=== PATIENT | female | born 1955 | race Caucasian/White ===

== ENCOUNTER 2019-05-16 09:34 | Outpatient (RCR) | payer MEDICARE, BC, SELFPAY ==
[2019-05-16] VITALS (11 sets, daily range): BP systolic 122–137; BP diastolic 71–83; PULSE 66–79; RESP 16–18; TEMP 36.6–37; O2SAT 97–99
[2019-05-16 10:41] LABS: Basophils % 0.6 %; Eosinophils # 0.2 10^3/uL (0.0-0.8); Eosinophils % 4.5 %; Hemoglobin 8.1 g/dL (11.5-15.3); Lymphocytes # 0.9 10^3/uL (0.8-4.8); Lymphocytes % 17.6 %; Mean Corpuscular Hemoglobin 22.7 pg (28.0-34.0); Mean Platelet Volume 11.5 fL (7.4-10.4); Monocytes # 0.5 10^3/uL (0.2-0.9); Monocytes % 9.7 %; Neutrophils # 3.6 10^3/uL (1.8-7.7); Neutrophils % 67.4 %; Nucleated Red Blood Cells % 0 %; Platelet Count 219 10^3/cmm (130-400); Red Blood Count 3.57 10^6/uL (4.1-5.3); Red Cell Distribution Width 14.8 % (12.1-15.1); White Blood Count 5.4 10^3/uL (4.0-10.0)
[2019-05-16 11:04] LABS: Iron 17 ug/dL (37-145); Percent Saturation 4.3 % (20-50); Total Iron Binding Capacity 394 mg/dL; Unsaturated Iron Binding 377 ug/dL (112-347)
--- NOTE | 2019-05-16 13:00 | ONC FU_ITS ---
[facility] Patient Note Patient: Cesia Ireland Unit #: [id number]: 1955 Dictated By: Adele DuenasDate of Visit: May 16, 2019 Onc MED Follow-Up/Prog Note Chief Complaint: Anemia. History of Present Illness: Ms Ireland is a 64 year-old woman with iron deficiency anemia. She has known AVMs with associated GI bleeding for which she has undergone EGD/bipolar diathermy on 3 occasions, in February 2014, in June 2015, and in March 2017. She also has had associated anemia. She was given parenteral iron replacement with 5 infusions of Venofer in 2015, and she also received infusions of Injectafer on 02/03/2017 and on 02/10/2017. On her follow-up visit with Dr. Cagle on 08/14/2017 she was again moderately anemic with hemoglobin 9.7 g and hematocrit 30.9%. The red cell indices were normal. The white blood cell count was normal at 6200 and the lately count was normal at 189,000. Comprehensive metabolic profile at that time was unremarkable. The serum iron was elevated at 209 mcg/dL with transferrin saturation 59%. The ferritin, though, was low at 15 ng/mL. Her repeat CBC on 08/21/2017 showed further decline in the hemoglobin to 9.1 g with white blood cell count 5100 and platelet count 170,000. Her other medical illnesses include irritable bowel syndrome, GERD, chronic venous stasis, and degenerative arthritis/degenerative disease of the spine. She is a nonsmoker. INTERIM HISTORY: She was seen here for a follow-up visit on 09/13/2017. Her CBC showed hemoglobin down to 8.4 g with white blood cell count 6600 and platelet count 196,000. The transferrin saturation was low at 4.2% and the ferritin was low at 4.2 ng/mL, consistent with iron deficiency. She was then given parenteral iron replacement with infusions of Injectafer on 09/15/2017 and 09/22/2017. She tolerated it well. On her follow-up visit on 10/23/2017 her hemoglobin had increased to 10.9 g and her transferrin saturation had increased from 4.2 to 8.6%. As she was still anemic and iron deficient, she was given 2 additional infusions of Injectafer. She has a good response with her hemoglobin increasing to 11.7 g. She was seen again on 02/16/2018. Her hemoglobin had dropped back to 8.3 g with transferrin saturation 6% and ferritin level 7.0 ng/mL, consistent with iron deficiency. She was given additional infusions of Injectafer on 02/16/2018 and on 02/23/2018. She had a good clinical response. Her CBC on 04/02/2018 showed hemoglobin increased to 13.8 g. Her transferrin saturation at increased to 23% and her ferritin was up to 95 ng/mL. By August 2018 she was moderately anemic again with hemoglobin decreased to 9.5 g. The transferrin saturation was back down to 6%, consistent with iron deficiency. She was given further parenteral iron replacement with infusions of Injectafer on 08/24/2018 and 08/31/2018. She was seen for a follow-up visit in November 2018. She was feeling good. She says her energy has been better following the Injectafer infusions in August. She has since then had GI evaluation with EGD and colonoscopy. The colonoscopy showed 3 benign polyps. Her EGD apparently did show some lesions that required treatment, but there was no evidence of any malignancy. Her acid reflux symptoms have been adequately managed with omeprazole. Her hemoglobin at that time was 13.2. Mrs. Ireland is here today for follow-up as she had a hemoglobin in April of 8.5. Repeat hemoglobin today is 8.1 and iron study reveals iron saturation of 4.5%. She is set up for her first of 2 doses of Injectafer for today. She states she is very short of breath. She is having significant fatigue and weakness. She states she is having palpitations and some intermittent chest pain as well. We will set her up for 2 units of blood today as well. She denies any fever or chills. She is had no nausea or vomiting. She denies any diarrhea or constipation. Her urinary patterns are normal. She denies any knee pain. She states she can feel her blood getting low because she was started having palpitations more frequently than her normal. She also has increasing fatigue. She states she is had Injectafer at least twice in the past and tolerates it well. She has no questions regarding the Injectafer. She states she is also had blood in the past and tolerated it well. Her ECOG is 1. Past Medical History: Colonic polyps Degenerative arthritis Degenerative disease of the spine Gastric AVM's Gastroesophageal reflux disease Iiritable bowel syndrome Iron deficiency anemia Venous insufficiency Past Surgical History: Cholecystectomy EDG/bipolar diathermy x 3 Carcioma removal in 2018 Colonoscopy in 2013 Allergies: No Known Allergies. Medications: Chlordiazepoxide-Clidinium 1 Tablet (of 5-2.5 mg) Capsule Oral four times a day PRN Citrucel Tablet Oral daily PRN Fluticasone Propionate 2 spray(s) (of 50 mcg/act) Suspension Nasal daily Hydrocodone-Acetaminophen 1 Tablet (of 5-325 mg) Oral daily PRN Omeprazole 1 Capsule (of 40 mg) Capsule Delayed Release Oral daily Family History: Ms. Ireland's mother is : cerebral vascular accident. Ms. Ireland's father is : hypertension, and myocardial infarction. Ms. Ireland has 1 sister who is : spinal cord tumor. Father of heart attack at age 73. Mother at age 76, records indicate from stroke, though the patient says it was heart attack. A sister of spinal cord tumor at age 57. Social History: Ms. Ireland is and she is retired. Ms. Ireland has never smoked. She has no history of drinking. She is retired. She is a nonsmoker. She does not drink alcohol. Review Of Symptoms: Constitutional Denies fevers, chills, night sweats, but has had excessive fatigue. Allergic/Immunologic No reactions. Eyes Denies significant visual changes. No diplopia. No amaurosis. ENMT Denies changes in hearing, sore throat, mouth sores, difficulty or changes in swallowing ability, and/or sinus drainage. Hematologic/Lymphatic Denies easy bruising or bleeding. The patient denies any tender or palpable lymph nodes. Respiratory She states she is having significant dyspnea on exertion and is having intermittent palpitations and some chest pain. She denies cough or hemoptysis. Denies orthopnea. Cardiovascular She states she is having some tightness at times but is having palpitations frequently like I do when I get low on blood . Gastrointestinal Denies nausea, vomiting, diarrhea, GI bleeding, or constipation. Denies change in bowel habits and/or stool color, no heartburn or early satiety. Denies any stool color changes. Denies blood in stool. Genitourinary (F) No hematuria, hesitancy, incontinence, vaginal bleeding, discharge or other problems with urination. Musculoskeletal Denies joint pain, swelling or redness. No decreased range of motion. Integumentary Denies chronic rashes, inflammation, ulcerations or skin changes. Neurologic Denies headache, blurred vision, and no areas of focal weakness or numbness. Normal gait. No sensory problems. Psychiatric Denies insomnia, depression, shani or mood swings. Vital Signs: Performed on May 16, 2019 11:13 Height - 67.00 in Weight - 255.6 lbs (LOW) BSA - 2.24 sq.m BMI - 40.03 (HIGH) Temperature - 98.0 F (LOW) Pulse - 75 /min Respiration - 24 /min BP - 144/71 mm(hg) (HIGH) O2 Sat - 100 % Pain - 0,1 - No physically strenuous activity, but ambulatory and able to carry out light or sedentary work (e.g. office work, light house work). (ECOG) Physical Examination: Constitutional Alert, oriented, no acute distress. Skin pale/pink, warm and dry. Head Normocephalic; atraumatic. Eyes Conjunctivae and sclerae are clear and without icterus. Pupils are reactive and equal. ENMT No oral exudates, ulcers, masses, thrush or mucositis. Oropharynx clear. Tongue normal. Neck Supple without masses or thyromegaly. No jugular venous distension. Hematologic/Lymphatic No petechiae or purpura. No tender or palpable lymph nodes in the cervical or supraclavicular areas. Respiratory Lungs are clear to auscultation without rhonchi or wheezing. Cardiovascular Regular rate and rhythm of heart without murmurs,clicks, gallops or rubs. Abdomen Non-tender, non-distended, no masses or ascites. Good bowel sounds noted in all quads. No guarding or rebound tenderness. No pulsatile masses. Back/Spine Non-tender to palpation. Extremities No visible deformities, no cyanosis, clubbing or edema. Musculoskeletal No tenderness or swelling, normal range of motion without obvious weakness. Integumentary No rashes or lesions. Neurologic No sensory or motor deficits, normal cerebellar function, normal gait. Psychiatric Alert and oriented times three. Coherent speech. Verbalizes understanding of our discussions today. Laboratory:Test performed on May 16, 2019 10:05 % Iron Saturation 4.3 % Iron, Total 17 mcg/dL TIBC 394 mcg/dL WBC 5.4 10^9/L RBC 3.57 10^12/L HGB 8.1 g/dL HCT 30.0 % MCV 84.0 fl MCH 22.7 pg MCHC 27.0 g/dL RDW 14.8 % Platelet Count 219 10^9/L MPV 11.5 fL Neutrophils (Gran) 3.6 10^9/L Lymphocytes 0.9 10^9/L Monocytes 0.5 10^9/L Eosinophils 0.2 10^9/L Basophils 0.0 10^9/L Manual Lymphocytes 17.6 % Manual Monocytes 9.7 % Manual Eosinophils 4.5 % Manual Basophils 0.6 % NRBCs 0.0 /100 WBC Test performed on Dec 05, 2018 12:16 Ferritin 69.0 ng/ml Sodium 137 mmol/L Potassium 4.1 mmol/L Chloride 101 mmol/L CO2 27 mmol/L Anion Gap 13.1 BUN 14 mg/dL Creatinine 0.7 mg/dL Cr Clearance (Est) 149.4200 mL/min eGFR 84.2 mL/min Glucose 103 mg/dl Calcium 8.9 mg/dL Protein, Total 7.3 g/dL Albumin 3.9 g/dL Globulin 3.4 gm/dL Bilirubin, Total 0.5 mg/dL ALT (SGPT) 29 U/L AST (SGOT) 24 U/L Alkaline Phosphatase 70 IU/L Neutrophil % 66.2 % Lymphocyte % 20.1 % Monocyte % 9.7 % Eosinophil % 3.5 % Basophils % 0.5 % Impression: 1. Patient with recurrent iron deficiency anemia. This is most likely due to GI blood loss. It is uncertain to what extent she may also have inadequate oral iron absorption. 2. She has had treatment for gastrointestinal AVMs on 3 occasions. She also has a history of gastritis/GERD. Her other medical illnesses include: 3. Irritable bowel syndrome. 4. Degenerative arthritis/degenerative disease of the spine. 5. She had a colonic polyp removed endoscopically in 2013. As of February 2018 she had become significantly anemic again, hemoglobin declining to 8.3 g. The transferrin saturation and ferritin were again consistent with iron deficiency. She was given additional infusions of Injectafer on 02/16/2018 and on 02/23/2018. She has had a very good clinical response. However, by August 2018 she was moderately anemic again with hemoglobin back down to 9.5 g. The transferrin saturation was 6%, consistent with iron deficiency. She was given further parenteral iron replacement with 2 more infusions of Injectafer. She again has had a very good clinical response. In the meantime, she underwent GI evaluation with EGD and colonoscopy. There was no evidence of any underlying malignancy. Mrs. Ireland returns today for Injectafer as she is noted to have iron deficiency anemia once again. Her hemoglobin on 05/07/2019 was 8.5. Repeat hemoglobin today is 8.1 iron saturation is 4.5%. Plan: 1. Procced with week1/2 of Injectafer. 2. 2 units of PRBCs today or LOUIE for symptomatic anemia with HGB of 8.1-extremely SOB, fatigue, CP and palpitations. 3. Labs from today were reviewed in detail and discussed with Ms. Ireland. White count is 5.4 hemoglobin 8.1 hematocrit is 30. Platelets are 219,000 ANC is 3600. Iron saturation is 4.3% iron level is 17. 4. We will plan to see her back for just Injectafer in 1 week. She will return for follow-up with repeat CBC CMP and iron studies and 5 to 6 weeks. I have asked her to have weekly CBC as well to follow as she is so anemic and symptomatic. If she feels good her hemoglobin has corrected she does not have to have them weekly. 5. Mrs. Ireland was instructed to contact us in the interim should questions or problems arise. 6. We reviewed Injectafer specific teaching including but not limited to hypersensitivity reactions, including anaphylactic-type reactions, including life threatening and fatal reactions have been reported in patients receiving Injectafer. Rash, urticaria, wheezing, pruritus, hypotension amongst others have been reported. Nausea, hypertension, hot flushes, dizziness and decreased blood phosphorus levels have been reported. Most common adverse reactions reported include urticaria, dyspnea, pruritus, tachycardia, erythema, pyrexia, chest discomfort, chills, angioedema, back pain, arthralgia, and syncope. They have also been informed how to contact the clinic with side effects or symptoms, including but not limited to those discussed above, as well as any other concern or question they may have. Our hours are 8:00 a.m. to 4:30 p.m. on Monday through and 8-12:00 on Monday. However, someone is demolition engineer 24 hours per day and they have been advised to contact the [facility] at if it is after hours. Signed By: Adele Duenas-, AOCNP Ricky Martinez MD <<Signature on File>>
[2019-05-16] MEDS: diphenhydrAMINE 25 mg Capsule PO (13:30)
[2019-05-16] MEDS: acetaminophen 325 mg Tablet 650 MG PO (13:30)
[2019-05-16] MEDS: sodium chloride 0.9% 250 ML 75 ML IV (14:11)
[2019-05-16] MEDS: FUROsemide 10 mg/mL SDV 2mL 20 MG IV (15:17)
[2019-05-16 22:33] LABS: Alanine Aminotransferase 20 U/L (0-33); Albumin Level 4.2 g/dL (3.5-5.2); Alkaline Phosphatase 82 IU/L (35-105); Aspartate Amino Transferase 22 U/L (0-32); Blood Urea Nitrogen 15 mg/dL (8-23); Calcium 9.6 mg/Dl (8.8-10.2); Carbon Dioxide 21 mmol/L (22-29); Chloride 102 mmol/L (98-107); Globulin 3.5 g/dL (1.3-4.6); Glucose 87 mg/dL (74-106); Sodium 139 mmol/L (136-145); Total Bilirubin 0.3 mg/dL (0.15-1.2); Total Protein 7.7 g/dL (6.6-8.7)
== END 2019-05-16 23:59 | disposition home or self-care (01) ==
LOC: ONCMED 09:34
PROVIDERS: Family Provider Internal Medicine; Visit Provider Nurse Practitioner
DX: D50.9 Iron deficiency anemia, unspecified (principal); K58.9 Irritable bowel syndrome, unspecified; K21.9 Gastro-esophageal reflux disease without esophagitis; I87.8 Other specified disorders of veins; M19.90 Unspecified osteoarthritis, unspecified site; Z79.891 Long term (current) use of opiate analgesic
CPT/HCPCS: 36430; 80053; 83540; 83550; 85025; 86850; 86900; 96365; 99214; J1439; J1940; J7050; P9016

== ENCOUNTER 2019-06-06 05:37 | Outpatient (RCR) | payer MEDICARE, BC, SELFPAY ==
[2019-05-23 10:07] LABS: Basophils % 0.3 %; Eosinophils # 0.3 10^3/uL (0.0-0.8); Eosinophils % 4.3 %; Hematocrit 33.9 % (37.0-47.0); Hemoglobin 9.6 g/dL (11.5-15.3); Lymphocytes % 15.2 %; Mean Corpuscular HGB Conc 28.3 g/dL (30.0-36.0); Mean Corpuscular Hemoglobin 23.9 pg (28.0-34.0); Mean Corpuscular Volume 84.3 fL (81-99); Mean Platelet Volume 11.6 fL (7.4-10.4); Monocytes # 0.6 10^3/uL (0.2-0.9); Neutrophils # 4.4 10^3/uL (1.8-7.7); Neutrophils % 70.7 %; Nucleated Red Blood Cells % 0 %; Platelet Count 177 10^3/cmm (130-400); Red Blood Count 4.02 10^6/uL (4.1-5.3); Red Cell Distribution Width 19.4 % (12.1-15.1); White Blood Count 6.2 10^3/uL (4.0-10.0)
[2019-05-30 09:24] LABS: Basophils % 0.7 %; Eosinophils # 0.3 10^3/uL (0.0-0.8); Eosinophils % 4.4 %; Hematocrit 36.1 % (37.0-47.0); Hemoglobin 10.4 g/dL (11.5-15.3); Lymphocytes % 17.9 %; Mean Corpuscular HGB Conc 28.8 g/dL (30.0-36.0); Mean Corpuscular Hemoglobin 26.5 pg (28.0-34.0); Mean Corpuscular Volume 92.1 fL (81-99); Mean Platelet Volume 12.2 fL (7.4-10.4); Monocytes # 0.5 10^3/uL (0.2-0.9); Neutrophils # 3.8 10^3/uL (1.8-7.7); Neutrophils % 67.5 %; Nucleated Red Blood Cells % 0 %; Platelet Count 167 10^3/cmm (130-400); Red Blood Count 3.92 10^6/uL (4.1-5.3); Red Cell Distribution Width 23.3 % (12.1-15.1); White Blood Count 5.7 10^3/uL (4.0-10.0)
[2019-06-06 09:15] LABS: Basophils % 0.5 %; Eosinophils # 0.3 10^3/uL (0.0-0.8); Eosinophils % 4.7 %; Hematocrit 36.4 % (37.0-47.0); Hemoglobin 10.8 g/dL (11.5-15.3); Lymphocytes # 1.1 10^3/uL (0.8-4.8); Lymphocytes % 17.5 %; Mean Corpuscular HGB Conc 29.7 g/dL (30.0-36.0); Mean Corpuscular Hemoglobin 27.9 pg (28.0-34.0); Mean Corpuscular Volume 94.1 fL (81-99); Mean Platelet Volume 11.5 fL (7.4-10.4); Monocytes # 0.5 10^3/uL (0.2-0.9); Monocytes % 8.6 %; Neutrophils # 4.2 10^3/uL (1.8-7.7); Neutrophils % 68.4 %; Nucleated Red Blood Cells % 0 %; Platelet Count 153 10^3/cmm (130-400); Red Blood Count 3.87 10^6/uL (4.1-5.3); Red Cell Distribution Width 23.9 % (12.1-15.1); White Blood Count 6.2 10^3/uL (4.0-10.0)
== END 2019-06-07 23:59 | disposition home or self-care (01) ==
LOC: ONCMED 05:37
PROVIDERS: Nurse Practitioner; Family Provider Internal Medicine; PCP Family Medicine; Visit Provider Internal Medicine Medical Oncology
DX: D50.9 Iron deficiency anemia, unspecified (principal)
CPT/HCPCS: 36415; 85025; 96365; J1439

== ENCOUNTER 2019-07-05 05:41 | Outpatient (RCR) | payer MEDICARE, BC, SELFPAY ==
[2019-06-13 09:24] LABS: Basophils % 0.7 %; Eosinophils # 0.3 10^3/uL (0.0-0.8); Eosinophils % 4.6 %; Hematocrit 36.5 % (37.0-47.0); Hemoglobin 10.8 g/dL (11.5-15.3); Lymphocytes # 1.2 10^3/uL (0.8-4.8); Lymphocytes % 20.8 %; Mean Corpuscular HGB Conc 29.6 g/dL (30.0-36.0); Mean Corpuscular Hemoglobin 28.1 pg (28.0-34.0); Mean Corpuscular Volume 95.1 fL (81-99); Mean Platelet Volume 11.5 fL (7.4-10.4); Monocytes # 0.5 10^3/uL (0.2-0.9); Monocytes % 9.1 %; Neutrophils # 3.8 10^3/uL (1.8-7.7); Neutrophils % 64.3 %; Nucleated Red Blood Cells % 0 %; Platelet Count 154 10^3/cmm (130-400); Red Blood Count 3.84 10^6/uL (4.1-5.3); Red Cell Distribution Width 23.4 % (12.1-15.1); White Blood Count 5.8 10^3/uL (4.0-10.0)
[2019-06-20 09:23] LABS: Basophils % 0.4 %; Eosinophils # 0.3 10^3/uL (0.0-0.8); Hematocrit 35.9 % (37.0-47.0); Hemoglobin 10.9 g/dL (11.5-15.3); Lymphocytes # 1.2 10^3/uL (0.8-4.8); Lymphocytes % 17.2 %; Mean Corpuscular HGB Conc 30.4 g/dL (30.0-36.0); Mean Corpuscular Hemoglobin 27.9 pg (28.0-34.0); Mean Corpuscular Volume 92.1 fL (81-99); Mean Platelet Volume 11.4 fL (7.4-10.4); Monocytes # 0.7 10^3/uL (0.2-0.9); Monocytes % 9.4 %; Neutrophils # 4.8 10^3/uL (1.8-7.7); Neutrophils % 68.7 %; Nucleated Red Blood Cells % 0 %; Platelet Count 183 10^3/cmm (130-400); Red Cell Distribution Width 21.9 % (12.1-15.1); White Blood Count 6.9 10^3/uL (4.0-10.0)
[2019-06-26 09:47] LABS: Basophils % 0.5 %; Eosinophils # 0.2 10^3/uL (0.0-0.8); Eosinophils % 3.4 %; Hematocrit 35.7 % (37.0-47.0); Hemoglobin 10.8 g/dL (11.5-15.3); Lymphocytes # 1.3 10^3/uL (0.8-4.8); Lymphocytes % 19.1 %; Mean Corpuscular HGB Conc 30.3 g/dL (30.0-36.0); Mean Corpuscular Hemoglobin 28.1 pg (28.0-34.0); Mean Platelet Volume 11.2 fL (7.4-10.4); Monocytes # 0.5 10^3/uL (0.2-0.9); Monocytes % 8.3 %; Neutrophils # 4.5 10^3/uL (1.8-7.7); Neutrophils % 68.5 %; Nucleated Red Blood Cells % 0 %; Platelet Count 187 10^3/cmm (130-400); Red Blood Count 3.84 10^6/uL (4.1-5.3); Red Cell Distribution Width 20.8 % (12.1-15.1); White Blood Count 6.5 10^3/uL (4.0-10.0)
[2019-06-26 10:06] LABS: Alanine Aminotransferase 27 U/L (0-33); Albumin Level 4.1 g/dL (3.5-5.2); Alkaline Phosphatase 83 IU/L (35-105); Anion Gap 11.8 (5-19); Aspartate Amino Transferase 21 U/L (0-32); Blood Urea Nitrogen 20 mg/dL (8-23); Calcium 9.3 mg/dL (8.5-10.5); Carbon Dioxide 30 mmol/L (22-29); Chloride 100 mmol/L (98-107); Globulin 3.5 g/dL (1.3-4.6); Glucose 112 mg/dL (65-115); Potassium 3.8 mmol/L (3.5-5.1); Sodium 138 mmol/L (136-145); Total Bilirubin 0.2 mg/dL (0.15-1.2); Total Protein 7.6 g/dL (6.6-8.7)
[2019-06-27 10:47] LABS: Ferritin 35 ng/mL (15-150); Iron 44 ug/dL (37-145); Percent Saturation 13.4 % (20-50); Total Iron Binding Capacity 326 mcg/dl; Unsaturated Iron Binding 282 ug/dL (112-347)
[2019-06-27 11:04] LABS: Vitamin B12 366 pg/mL (232-1245)
--- NOTE | 2019-06-27 17:23 | ONC FU_ITS ---
Dr. Martinez Patient Follow-Up Note Patient: Cesia Ireland Unit #: [id number]: [id number] Dicatated By: Ricky Martinez M.D.Date of Visit:Jun 27, 2019 Onc Med Follow-up/Prog Note Chief Complaint: Anemia. History of Present Illness: This is a 64 year-old woman with iron deficiency anemia. She has known AVMs with associated GI bleeding for which she has undergone EGD/bipolar diathermy on 3 occasions, in February 2014, in June 2015, and in March 2017. She also has had associated anemia. She was given parenteral iron replacement with 5 infusions of Venofer in 2015, and she also received infusions of Injectafer on 02/03/2017 and on 02/10/2017. On her follow-up visit with Dr. Cagle on 08/14/2017 she was again moderately anemic with hemoglobin 9.7 g and hematocrit 30.9%. The red cell indices were normal. The white blood cell count was normal at 6200 and the lately count was normal at 189,000. Comprehensive metabolic profile at that time was unremarkable. The serum iron was elevated at 209 mcg/dL with transferrin saturation 59%. The ferritin, though, was low at 15 ng/mL. Her repeat CBC on 08/21/2017 showed further decline in the hemoglobin to 9.1 g with white blood cell count 5100 and platelet count 170,000. She was seen here for a follow-up visit on 09/13/2017. Her CBC showed hemoglobin down to 8.4 g with white blood cell count 6600 and platelet count 196,000. The transferrin saturation was low at 4.2% and the ferritin was low at 4.2 ng/mL, consistent with iron deficiency. She was then given parenteral iron replacement with infusions of Injectafer on 09/15/2017 and 09/22/2017. She tolerated it well. On her follow-up visit on 10/23/2017 her hemoglobin had increased to 10.9 g and her transferrin saturation had increased from 4.2 to 8.6%. As she was still anemic and iron deficient, she was given 2 additional infusions of Injectafer. She has a good response with her hemoglobin increasing to 11.7 g. She was seen again on 02/16/2018. Her hemoglobin had dropped back to 8.3 g with transferrin saturation 6% and ferritin level 7.0 ng/mL, consistent with iron deficiency. She was given additional infusions of Injectafer on 02/16/2018 and on 02/23/2018. She had a good clinical response. Her CBC on 04/02/2018 showed hemoglobin increased to 13.8 g. Her transferrin saturation at increased to 23% and her ferritin was up to 95 ng/mL. Her other medical illnesses include irritable bowel syndrome, GERD, chronic venous stasis, and degenerative arthritis/degenerative disease of the spine. She is a nonsmoker. INTERIM HISTORY: By August 2018 she was moderately anemic again with hemoglobin decreased to 9.5 g. The transferrin saturation was back down to 6%, consistent with iron deficiency. She was given further parenteral iron replacement with infusions of Injectafer on 08/24/2018 and 08/31/2018. She had a good response with her hemoglobin increasing to 13 g. In May 2019 she received 2 more infusions of Injectafer with her hemoglobin decreased to 8.1 g and transferrin saturation low at 4.3%. Approximately 10 days ago she had presented to Dr. Fraga with left facial paralysis, consistent with Mendosa's palsy. At the time she was also having sinusitis symptoms. She was treated with Augmentin and valacyclovir. She also received a steroid injection. She is seen for a scheduled visit. She complains that she is still tired a lot despite the iron infusions last month. Her appetite is somewhat variable, but adequate. Her weight is stable. She has no fever or night sweats. She says her sinus symptoms are getting better. She was having shortness of breath when she was lying down, but that is better now. She has not been having cough, and she does not complain of chest pain. She has no GI or complaints. She has some stiffness in her hands. She has been having headache on the left side associated with the Mendosa's palsy. She sometimes has numbness/tingling in her hands. Medications: Amoxicillin-Pot Clavulanate 1 Tablet (of 875-125 mg) Oral b.i.d. for 10 days, Chlordiazepoxide-Clidinium 1 Tablet (of 5-2.5 mg) Capsule Oral four times a day PRN, Citrucel Tablet Oral daily PRN, Fluticasone Propionate 2 spray(s) (of 50 mcg/act) Suspension Nasal daily, Hydrocodone-Acetaminophen 1 Tablet (of 5-325 mg) Oral daily PRN, Omeprazole 1 Capsule (of 40 mg) Capsule Delayed Release Oral daily Allergies: No Known Allergies. Review of Systems: Constitutional - She complains that she is still tired a lot. Her appetite is somewhat variable, but adequate. Her weight is stable. She has no fever, night sweats, or hot flashes. ECOG score is 1, ENMT - Her sinusitis symptoms are getting better. No mouth sores. No sore throat or difficulty swallowing, Hematologic/Lymphatic - She has easy bruising, Respiratory - She was having shortness of breath when she was lying down, but that has gotten better. No cough. No pleuritic pain or hemoptysis, Cardiovascular - No angina pain. No palpitations, Gastrointestinal - No nausea or vomiting. No heartburn or acid reflux. No diarrhea or constipation. No blood in the stool or black stools, Genitourinary (F) - No dysuria or hematuria. No urinary frequency. No urgency or incontinence, Musculoskeletal - She has stiffness in her joints, Integumentary - No skin complications, Neurologic - She has Mendosa's palsy and she has headaches on the left side associated it. No dizziness. She occasionally has numbness and tingling in her hands, Psychiatric - No anxiety or depression. She sometimes has trouble sleeping at night. Vital Signs: Performed on Jun 27, 2019 10:04 Height - 67.00 in Weight - 257.0 lbs (HIGH) BSA - 2.25 sq.m BMI - 40.25 (HIGH) Temperature - 97.4 F (LOW) Pulse - 68 /min Respiration - 24 /min BP - 156/73 mm(hg) (HIGH) O2 Sat - 100 % Pain - 5 Physical Examination: Constitutional - She looks pretty good generally, Eyes - Sclerae nonicteric. Conjunctivae clear, ENMT - No lesions noted in the oral cavity, Hematologic/Lymphatic - No cervical, clavicular, or axillary adenopathy, Respiratory - Lungs are clear with good air movement bilaterally, Cardiovascular - Heart rhythm is regular. There is a I/ systolic murmur. There is no gallop or rub noted, Abdomen - Mildly distended but soft. Liver and spleen are not enlarged. There is no abdominal mass or ascites noted and there is no inguinal adenopathy, Extremities - Slight pedal edema, Integumentary - There is no skin eruption, Neurologic - She as a complete left facial paralysis. Lab/Imaging: Test performed on Jun 26, 2019 09:05 Sodium 138 mmol/L Potassium 3.8 mmol/L Chloride 100 mmol/L CO2 30 mmol/L Anion Gap 11.8 BUN 20 mg/dL Creatinine 0.8 mg/dL Cr Clearance (Est) 128.3200 mL/min eGFR 72.0 mL/min Glucose 112 mg/dL Calcium 9.3 mg/dL Protein, Total 7.6 g/dL Albumin 4.1 g/dL Globulin 3.5 g/dL Bilirubin, Total 0.2 mg/dL ALT (SGPT) 27 U/L AST (SGOT) 21 U/L Alkaline Phosphatase 83 IU/L WBC 6.5 10 3/uL RBC 3.84 10 6/uL HGB 10.8 g/dL HCT 35.7 % MCV 93.0 fL MCH 28.1 pg MCHC 30.3 g/dL RDW 20.8 % Platelet Count 187 10 3/cmm MPV 11.2 fL Neutrophils 4.5 10 3/uL Lymphocytes 1.3 10 3/uL Monocytes 0.5 10 3/uL Eosinophils 0.2 10 3/uL Basophils 0.0 10 3/uL Neutrophil % 68.5 % Lymphocyte % 19.1 % Monocyte % 8.3 % Eosinophil % 3.4 % Basophils % 0.5 % Impression: 1. Patient with recurrent iron deficiency anemia. This is most likely due to GI blood loss. It is uncertain to what extent she may also have inadequate oral iron absorption. 2. She has had treatment for gastrointestinal AVMs on 3 occasions. She also has a history of gastritis/GERD. Her other medical illnesses include: 3. Irritable bowel syndrome. 4. Degenerative arthritis/degenerative disease of the spine. 5. She had a colonic polyp removed endoscopically in 2013. As of February 2018 she had become significantly anemic again, hemoglobin declining to 8.3 g. The transferrin saturation and ferritin were again consistent with iron deficiency. She was given additional infusions of Injectafer on 02/16/2018 and on 02/23/2018. She has had a very good clinical response. However, by August 2018 she was moderately anemic again with hemoglobin back down to 9.5 g. The transferrin saturation was 6%, consistent with iron deficiency. She was given further parenteral iron replacement with 2 more infusions of Injectafer. She again has had a very good clinical response. In the meantime, she underwent GI evaluation with EGD and colonoscopy. There was no evidence of any underlying malignancy. In May 2019 she was given 2 more infusions of Injectafer with her hemoglobin decreased to 8.1 g and her transferrin saturation low at 4.3%. She has had some response, but she continues have significant fatigue, and she remains mildly anemic with transferrin saturation low at 13.4%. 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 Plan: She will be given 2 more infusions of Injectafer. She will be scheduled for a 1-month interval followup visit. Signed By: Ricky Martinez M.D. <<Signature on File>>
--- NOTE | 2019-07-01 10:48 | MM_ITS ---
WS: [id number] SCREENING DIGITAL MAMMOGRAM WITH CAD HISTORY: SCREENING COMPARISON: 06/05/2018 and 05/29/2017 Bilateral CC and MLO views submitted. Computer aided detection analyzed. Breast composition: There are scattered areas of fibroglandular density. No suspicious masses, microc alcifications or architectural distortion. MM/[id number] IMPRESSION: BI-RADS: 1-Negative FOLLOW UP: 1 Year Follow-up
== END 2019-07-06 23:59 | disposition home or self-care (01) ==
LOC: ONCMED 05:41
PROVIDERS: Nurse Practitioner; Absent Provider Internal Medicine Medical Oncology; Family Provider Internal Medicine; PCP Family Medicine; Visit Provider Internal Medicine Medical Oncology
DX: D50.9 Iron deficiency anemia, unspecified (principal); Z12.31 Encounter for screening mammogram for malignant neoplasm of breast; K58.9 Irritable bowel syndrome, unspecified; K21.9 Gastro-esophageal reflux disease without esophagitis; I87.8 Other specified disorders of veins; M19.90 Unspecified osteoarthritis, unspecified site; G51.0 Bell's palsy; Z79.899 Other long term (current) drug therapy
CPT/HCPCS: 36415; 77067; 80053; 82607; 82728; 83540; 83550; 85025; 96365; 99214; J1439

== ENCOUNTER 2019-08-05 06:50 | Outpatient (RCR) | payer MEDICARE, BC, SELFPAY ==
[2019-08-05 12:00] LABS: Basophils % 0.7 %; Eosinophils # 0.1 10^3/uL (0.0-0.8); Hematocrit 41.5 % (37.0-47.0); Hemoglobin 12.8 g/dL (11.5-15.3); Lymphocytes # 0.8 10^3/uL (0.8-4.8); Lymphocytes % 18.7 %; Mean Corpuscular HGB Conc 30.8 g/dL (30.0-36.0); Mean Corpuscular Hemoglobin 31.3 pg (28.0-34.0); Mean Corpuscular Volume 101.5 fL (81-99); Mean Platelet Volume 13.4 fL (7.4-10.4); Monocytes # 0.4 10^3/uL (0.2-0.9); Monocytes % 8.7 %; Neutrophils % 68.4 %; Nucleated Red Blood Cells % 0 %; Platelet Count 145 10^3/cmm (130-400); Red Blood Count 4.09 10^6/uL (4.1-5.3); Red Cell Distribution Width 15.9 % (12.1-15.1); White Blood Count 4.4 10^3/uL (4.0-10.0)
[2019-08-05 12:53] LABS: Slide Review Slide Review Perform
[2019-08-05 13:02] LABS: Ferritin 106 ng/mL (15-150); Iron 82 ug/dL (37-145); Percent Saturation 28.3 % (20-50); Total Iron Binding Capacity 289 mcg/dl; Unsaturated Iron Binding 207 ug/dL (112-347)
== END 2019-08-06 23:59 | disposition home or self-care (01) ==
LOC: ONCMED 06:50
PROVIDERS: Absent Provider Internal Medicine Medical Oncology; Family Provider Internal Medicine; PCP Family Medicine; Visit Provider Internal Medicine Medical Oncology
DX: D64.9 Anemia, unspecified (principal)
CPT/HCPCS: 82728; 83540; 83550; 85025

== ENCOUNTER 2019-11-20 09:39 | Outpatient (CLI) | payer MEDICARE, BC, SELFPAY ==
[2019-11-20 10:17] LABS: Basophils % 0.4 %; Eosinophils # 0.2 10^3/uL (0.0-0.8); Eosinophils % 3.8 %; Hematocrit 31.4 % (37.0-47.0); Mean Corpuscular HGB Conc 28.7 g/dL (30.0-36.0); Mean Corpuscular Hemoglobin 26.5 pg (28.0-34.0); Mean Corpuscular Volume 92.6 fL (81-99); Mean Platelet Volume 11.3 fL (7.4-10.4); Monocytes # 0.5 10^3/uL (0.2-0.9); Monocytes % 9.3 %; Neutrophils # 3.87 10^3/uL (1.8-7.7); Neutrophils % 69.1 %; Nucleated Red Blood Cells % 0 %; Platelet Count 193 10^3/cmm (130-400); Red Blood Count 3.39 10^6/uL (4.1-5.3); White Blood Count 5.6 10^3/uL (4.0-10.0)
[2019-11-20 10:30] LABS: Alanine Aminotransferase 23 U/L (0-33); Albumin Level 3.8 g/dL (3.5-5.2); Alkaline Phosphatase 67 IU/L (35-105); Aspartate Amino Transferase 18 U/L (0-32); Blood Urea Nitrogen 13 mg/dL (8-23); Calcium 8.5 mg/dL (8.5-10.5); Carbon Dioxide 27 mmol/L (22-29); Chloride 104 mmol/L (98-107); Ferritin 8 ng/mL (15-150); Globulin 3.1 g/dL (1.3-4.6); Glucose 113 mg/dL (65-115); Iron 17 ug/dL (37-145); Osmolality Calculated 285 mOsm/kg (285-295); Percent Saturation 5.3 % (20-50); Sodium 139 mmol/L (136-145); Total Bilirubin 0.3 mg/dL (0.15-1.2); Total Iron Binding Capacity 316 mcg/dl; Total Protein 6.9 g/dL (6.6-8.7); Unsaturated Iron Binding 299 ug/dL (112-347)
== END 2019-11-20 09:40 | disposition home or self-care (01) ==
LOC: ONCMED 09:47
PROVIDERS: PCP Family Medicine; Visit Provider Internal Medicine Medical Oncology
DX: D50.9 Iron deficiency anemia, unspecified (principal); G51.0 Bell's palsy; M47.9 Spondylosis, unspecified; Q27.33 Arteriovenous malformation of digestive system vessel; K21.9 Gastro-esophageal reflux disease without esophagitis; K58.9 Irritable bowel syndrome, unspecified; K63.5 Polyp of colon; I87.2 Venous insufficiency (chronic) (peripheral)
CPT/HCPCS: 36415; 80053; 82728; 83540; 83550; 85025

== ENCOUNTER 2019-11-25 08:56 | Outpatient (CLI) | payer MEDICARE, BC, SELFPAY ==
[2019-11-25] MEDS: ferric carboxy (IVPB) 750 MG in sodium chloride 0.9% (100 ml) 100 ML 460 MG IV (10:00)
--- NOTE | 2019-11-25 10:03 | ONC FU_ITS ---
[facility] Patient Note Patient: Cesia Ireland Unit #: [id number]: [id number] Dictated By: Adele DuenasDate of Visit: Nov 25, 2019 Onc MED Follow-Up/Prog Note Chief Complaint: Anemia. History of Present Illness: Mrs Ireland is a 64 year-old woman with iron deficiency anemia. She has known AVMs with associated GI bleeding for which she has undergone EGD/bipolar diathermy on 3 occasions, in February 2014, in June 2015, and in March 2017. She also has had associated anemia. She was given parenteral iron replacement with 5 infusions of Venofer in 2015, and she also received infusions of Injectafer on 02/03/2017 and on 02/10/2017. On her follow-up visit with Dr. Cagle on 08/14/2017 she was again moderately anemic with hemoglobin 9.7 g and hematocrit 30.9%. The red cell indices were normal. The white blood cell count was normal at 6200 and the lately count was normal at 189,000. Comprehensive metabolic profile at that time was unremarkable. The serum iron was elevated at 209 mcg/dL with transferrin saturation 59%. The ferritin, though, was low at 15 ng/mL. Her repeat CBC on 08/21/2017 showed further decline in the hemoglobin to 9.1 g with white blood cell count 5100 and platelet count 170,000. Her other medical illnesses include irritable bowel syndrome, GERD, chronic venous stasis, and degenerative arthritis/degenerative disease of the spine. She is a nonsmoker. INTERIM HISTORY: She was seen here for a follow-up visit on 09/13/2017. Her CBC showed hemoglobin down to 8.4 g with white blood cell count 6600 and platelet count 196,000. The transferrin saturation was low at 4.2% and the ferritin was low at 4.2 ng/mL, consistent with iron deficiency. She was then given parenteral iron replacement with infusions of Injectafer on 09/15/2017 and 09/22/2017. She tolerated it well. On her follow-up visit on 10/23/2017 her hemoglobin had increased to 10.9 g and her transferrin saturation had increased from 4.2 to 8.6%. As she was still anemic and iron deficient, she was given 2 additional infusions of Injectafer. She has a good response with her hemoglobin increasing to 11.7 g. She was seen again on 02/16/2018. Her hemoglobin had dropped back to 8.3 g with transferrin saturation 6% and ferritin level 7.0 ng/mL, consistent with iron deficiency. She was given additional infusions of Injectafer on 02/16/2018 and on 02/23/2018. She had a good clinical response. Her CBC on 04/02/2018 showed hemoglobin increased to 13.8 g. Her transferrin saturation at increased to 23% and her ferritin was up to 95 ng/mL. By August 2018 she was moderately anemic again with hemoglobin decreased to 9.5 g. The transferrin saturation was back down to 6%, consistent with iron deficiency. She was given further parenteral iron replacement with infusions of Injectafer on 08/24/2018 and 08/31/2018. She had a good response with her hemoglobin increasing to 13 g. In May 2019 she received 2 more infusions of Injectafer with her hemoglobin decreased to 8.1 g and transferrin saturation low at 4.3%. In May 2019, she had presented to Dr. Fraga with left facial paralysis, consistent with Mendosa's palsy. At the time she was also having sinusitis symptoms. She was treated with Augmentin and valacyclovir. She also received a steroid injection. June 2019 she was once again found to be iron deficient and her hemoglobin was 10.8. She received 2 doses of Injectafer 1 week apart with the last one being on July 05, 2019. Her labs from August 05, 2027 indicated that her hemoglobin had improved to 12.8 and her iron saturation had improved to 28.3% and iron level was 82. Mrs. Ireland called last week indicating that she is been more fatigued. She is having a little bit more shortness of breath than normal. She is unable to attend her large garden or walk up hills like she normally does. She was suspicious that she may once again be iron deficient. She did have labs to confirm this on November 20, 2019. Her hemoglobin was found to be 9 hematocrit was 31.4 her iron saturation was 5.3 total iron was 17 and ferritin was 8. She was advised to come in for follow-up and to initiate Injectafer treatment once again. She states overall she feels pretty good other than the fatigue. She states that she is seeing Dr. Red in [place] on Monday for possible EGD. She has not noticed any blood in the stools. She has had no clifford bleeding elsewhere. She denies fever or chills. She has had no orthopnea. She states she has shortness of breath with dyspnea but is breathing fine at rest or minimal activity. She denies any lower extremity edema. She denies diarrhea or constipation. She denies any urinary symptoms. She has had no neuropathy symptoms at present. Her ECOG currently is 1. Past Medical History: [place] palsy Colonic polyps Degenerative arthritis Degenerative disease of the spine Gastric AVM's Gastroesophageal reflux disease Iiritable bowel syndrome Iron deficiency anemia Venous insufficiency Past Surgical History: Cholecystectomy EDG/bipolar diathermy x 3 Colonoscopy in 2019 Carcioma removal in 2018 She had bilateral peripheral iridonmy 03-18-19 Allergies: No Known Allergies. Medications: Citrucel Tablet Oral daily PRN Dicyclomine HCl 1 Capsule (of 10 mg) Oral daily PRN Fluticasone Propionate 2 spray(s) (of 50 mcg/act) Suspension Nasal daily Hydrocodone-Acetaminophen 1 Tablet (of 5-325 mg) Oral daily PRN Omeprazole 1 Capsule (of 40 mg) Capsule Delayed Release Oral daily Family History: Ms. Ireland's mother is : cerebral vascular accident. Ms. Ireland's father is : hypertension, and myocardial infarction. Ms. Ireland has 1 sister who is : spinal cord tumor. Father of heart attack at age 73. Mother at age 76, records indicate from stroke, though the patient says it was heart attack. A sister of spinal cord tumor at age 57. Social History: Ms. Ireland is and she is retired. Ms. Ireland has never smoked. She has no history of drinking. She is retired. She is a nonsmoker. She does not drink alcohol. Review Of Symptoms: Constitutional Denies fevers, chills, night sweats, but has had excessive fatigue. Allergic/Immunologic No reactions. Eyes Denies significant visual changes. No diplopia. No amaurosis. ENMT Denies changes in hearing, sore throat, mouth sores, difficulty or changes in swallowing ability, and/or sinus drainage. Hematologic/Lymphatic Denies easy bruising or bleeding. The patient denies any tender or palpable lymph nodes. Respiratory She states she is having significant dyspnea on exertion. She denies cough or hemoptysis. Denies orthopnea. Cardiovascular Denies anginal chest pain, palpitations or orthopnea. Gastrointestinal Denies nausea, vomiting, diarrhea, GI bleeding, or constipation. Denies change in bowel habits and/or stool color, no heartburn or early satiety. Denies any stool color changes. Denies blood in stool. Genitourinary (F) No hematuria, hesitancy, incontinence, vaginal bleeding, discharge or other problems with urination. Musculoskeletal Denies joint pain, swelling or redness. No decreased range of motion. Integumentary Denies chronic rashes, inflammation, ulcerations or skin changes. Neurologic Denies headache, blurred vision, and no areas of focal weakness or numbness. Normal gait. No sensory problems. Psychiatric Denies insomnia, depression, shani or mood swings. Vital Signs: Performed on Nov 25, 2019 09:13 Height - 67.00 in Weight - 260.6 lbs (HIGH) BSA - 2.26 sq.m BMI - 40.82 (HIGH) Temperature - 98.0 F (LOW) Pulse - 76 /min Respiration - 19 /min BP - 177/75 mm(hg) (HIGH) O2 Sat - 99 % Pain - 0,1 - No physically strenuous activity, but ambulatory and able to carry out light or sedentary work (e.g. office work, light house work). (ECOG) Physical Examination: Constitutional Alert, oriented, no acute distress. Skin pale/pink, warm and dry. Head Normocephalic; atraumatic. Eyes Conjunctivae and sclerae are clear and without icterus. Pupils are reactive and equal. Neck Supple without masses or thyromegaly. No jugular venous distension. Hematologic/Lymphatic No petechiae or purpura. No tender or palpable lymph nodes in the cervical or supraclavicular areas. Respiratory Lungs are clear to auscultation without rhonchi or wheezing. Cardiovascular Regular rate and rhythm of heart without murmurs,clicks, gallops or rubs. Back/Spine Non-tender to palpation. Extremities No visible deformities, no cyanosis, clubbing or edema. Musculoskeletal No tenderness or swelling, normal range of motion without obvious weakness. Integumentary No rashes or lesions. Neurologic No sensory or motor deficits, normal cerebellar function, normal gait. Psychiatric Alert and oriented times three. Coherent speech. Verbalizes understanding of our discussions today. Laboratory:Test performed on Nov 20, 2019 09:57 Ferritin 8 ng/mL Iron 17 mcg/dL Sodium 139 mmol/L Iron Binding Capacity (TIBC) 316 mcg/dl Potassium 4.0 mmol/L % Iron Saturation 5.3 % Chloride 104 mmol/L CO2 27 mmol/L UIBC 299 mcg/dL Anion Gap 12.0 BUN 13 mg/dL Creatinine 0.8 mg/dL Cr Clearance (Est) 129.0200 mL/min eGFR 72.0 mL/min Glucose 113 mg/dL Calcium 8.5 mg/dL Protein, Total 6.9 g/dL Albumin 3.8 g/dL Globulin 3.1 g/dL Bilirubin, Total 0.3 mg/dL ALT (SGPT) 23 U/L AST (SGOT) 18 U/L Alkaline Phosphatase 67 IU/L WBC 5.6 10 3/uL RBC 3.39 10 6/uL HGB 9.0 g/dL HCT 31.4 % MCV 92.6 fL MCH 26.5 pg MCHC 28.7 g/dL RDW 14.0 % Platelet Count 193 10 3/cmm MPV 11.3 fL Neutrophils 3.87 10 3/uL Lymphocytes 1.0 10 3/uL Monocytes 0.5 10 3/uL Eosinophils 0.2 10 3/uL Basophils 0.0 10 3/uL Neutrophil % 69.1 % Lymphocyte % 17.0 % Monocyte % 9.3 % Eosinophil % 3.8 % Basophils % 0.4 % NRBC % 0 % Test performed on Aug 05, 2019 06:50 CBC Slide Review Slide Review Perform SLIDE REVIEW AGREES WITH AUTO DIFF Test performed on Jun 26, 2019 09:05 Vitamin B12 366 pg/mL Impression: 1. Patient with recurrent iron deficiency anemia. This is most likely due to GI blood loss. It is uncertain to what extent she may also have inadequate oral iron absorption. 2. She has had treatment for gastrointestinal AVMs on 3 occasions. She also has a history of gastritis/GERD. Her other medical illnesses include: 3. Irritable bowel syndrome. 4. Degenerative arthritis/degenerative disease of the spine. 5. She had a colonic polyp removed endoscopically in 2013. As of February 2018 she had become significantly anemic again, hemoglobin declining to 8.3 g. The transferrin saturation and ferritin were again consistent with iron deficiency. She was given additional infusions of Injectafer on 02/16/2018 and on 02/23/2018. She has had a very good clinical response. However, by August 2018 she was moderately anemic again with hemoglobin back down to 9.5 g. The transferrin saturation was 6%, consistent with iron deficiency. She was given further parenteral iron replacement with 2 more infusions of Injectafer. She again has had a very good clinical response. In the meantime, she underwent GI evaluation with EGD and colonoscopy. There was no evidence of any underlying malignancy. In May 2019 she was given 2 more infusions of Injectafer with her hemoglobin decreased to 8.1 g and her transferrin saturation low at 4.3%. She has had some response, but she continues have significant fatigue, and she remains mildly anemic with transferrin saturation low at 13.4%. 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 Beka was found to be iron deficient again in June and received 2 more doses of Injectafer on June 28 and July 05, 2019. She has done well until the last week or so. She began having more fatigue and shortness of breath. She did have labs checked on November 20, 2019 which reported a hemoglobin of 9.0 hematocrit 31.4 iron saturation was 5.3% ferritin 8 and total iron was 17. We will received 2 doses of Injectafer. She is due to follow-up with Dr. Red (GI) on Monday. Plan: 1. Proceed with Injectafer 750 mg weekly x 2 weeks for iron deficiency anemia. 2. Labs from November 20, 2019 were reviewed in detail and discussed with Ms. Ireland and a copy was given to her. White count 0.6, hemoglobin 9.0 hematocrit 31.4 platelets 193,000 ANC is 3900. Potassium 4.0 random glucose 113 creatinine 0.8 LFTs are normal. Her iron saturation was 5.3% ferritin was 8 and iron level was 17. 3. She did have routine screening mammogram on July 05, 2019. Report was BI-RADS 1 negative recheck in 1 year. 4. She is scheduled to see Dr. Red for follow-up and possible EGD on Monday. 5. We will plan to see her back in 5 to 6 weeks with CBC CMP and iron studies to reevaluate her iron deficiency anemia. 6. Mrs. Ireland was instructed to contact us in the interim should questions or problems arise. Signed By: Adele Duenas-, AOCNP Ricky Martinez MD <<Signature on File>>
== END 2019-11-25 08:57 | disposition home or self-care (01) ==
LOC: ONCMED 09:00
PROVIDERS: PCP Family Medicine; Visit Provider Nurse Practitioner
DX: D50.9 Iron deficiency anemia, unspecified (principal); K21.9 Gastro-esophageal reflux disease without esophagitis; K29.70 Gastritis, unspecified, without bleeding; K58.9 Irritable bowel syndrome, unspecified; M19.90 Unspecified osteoarthritis, unspecified site; Z86.010 Personal history of colon polyps
CPT/HCPCS: 96365; 99214; J1439

== ENCOUNTER 2019-12-02 13:55 | Outpatient (CLI) | payer MEDICARE, BC, SELFPAY ==
[2019-12-02] MEDS: ferric carboxy (IVPB) 750 MG in sodium chloride 0.9% (100 ml) 100 ML 460 MG IV (14:30)
== END 2019-12-02 13:56 | disposition home or self-care (01) ==
LOC: ONCMED 13:58
PROVIDERS: PCP Family Medicine; Visit Provider Nurse Practitioner
DX: D50.8 Other iron deficiency anemias (principal)
CPT/HCPCS: 96365; J1439

== ENCOUNTER 2020-01-02 10:00 | Outpatient (CLI) | payer MEDICARE, BC, SELFPAY ==
[2020-01-02 10:33] LABS: Basophils % 0.7 %; Eosinophils # 0.2 10^3/uL (0.0-0.8); Eosinophils % 3.3 %; Hematocrit 38.7 % (37.0-47.0); Hemoglobin 11.4 g/dL (11.5-15.3); Lymphocytes % 17.3 %; Mean Corpuscular HGB Conc 29.5 g/dL (30.0-36.0); Mean Corpuscular Hemoglobin 28.4 pg (28.0-34.0); Mean Corpuscular Volume 96.5 fL (81-99); Mean Platelet Volume 11.4 fL (7.4-10.4); Monocytes # 0.6 10^3/uL (0.2-0.9); Neutrophils # 3.76 10^3/uL (1.8-7.7); Neutrophils % 68.5 %; Nucleated Red Blood Cells % 0 %; Platelet Count 168 10^3/cmm (130-400); Red Blood Count 4.01 10^6/uL (4.1-5.3); Red Cell Distribution Width 17.5 % (12.1-15.1); White Blood Count 5.5 10^3/uL (4.0-10.0)
[2020-01-02 10:53] LABS: Alanine Aminotransferase 26 U/L (0-33); Alkaline Phosphatase 72 IU/L (35-105); Anion Gap 11.4 (5-19); Aspartate Amino Transferase 21 U/L (0-32); Blood Urea Nitrogen 17 mg/dL (8-23); Calcium 8.5 mg/dL (8.5-10.5); Carbon Dioxide 28 mmol/L (22-29); Chloride 105 mmol/L (98-107); Ferritin 65 ng/mL (15-150); Globulin 3.3 g/dL (1.3-4.6); Glucose 105 mg/dL (65-115); Iron 62 ug/dL (37-145); Osmolality Calculated 287 mOsm/kg (285-295); Percent Saturation 23.2 % (20-50); Potassium 4.4 mmol/L (3.5-5.1); Sodium 140 mmol/L (136-145); Total Bilirubin 0.3 mg/dL (0.15-1.2); Total Iron Binding Capacity 267 mcg/dl; Total Protein 7.3 g/dL (6.6-8.7); Unsaturated Iron Binding 205 ug/dL (112-347)
== END 2020-01-02 10:01 | disposition home or self-care (01) ==
LOC: ONCMED 10:04
PROVIDERS: PCP Family Medicine; Visit Provider Nurse Practitioner
DX: D50.8 Other iron deficiency anemias (principal)
CPT/HCPCS: 80053; 82728; 83540; 83550; 85025

== ENCOUNTER 2020-02-03 09:39 | Outpatient (CLI) | payer MEDICARE, BC, SELFPAY ==
[2020-02-03 10:03] LABS: Basophils % 0.4 %; Eosinophils # 0.2 10^3/uL (0.0-0.8); Eosinophils % 3.3 %; Hematocrit 42.6 % (37.0-47.0); Hemoglobin 12.8 g/dL (11.5-15.3); Lymphocytes # 1.1 10^3/uL (0.8-4.8); Lymphocytes % 15.9 %; Mean Corpuscular Hemoglobin 28.3 pg (28.0-34.0); Mean Corpuscular Volume 94.2 fL (81-99); Mean Platelet Volume 11.3 fL (7.4-10.4); Monocytes # 0.6 10^3/uL (0.2-0.9); Monocytes % 8.8 %; Neutrophils # 4.76 10^3/uL (1.8-7.7); Nucleated Red Blood Cells % 0 %; Platelet Count 155 10^3/cmm (130-400); Red Blood Count 4.52 10^6/uL (4.1-5.3); Red Cell Distribution Width 15.9 % (12.1-15.1); White Blood Count 6.7 10^3/uL (4.0-10.0)
[2020-02-03 10:22] LABS: Iron 50 ug/dL (37-145); Percent Saturation 17.6 % (20-50); Total Iron Binding Capacity 283 mcg/dl; Unsaturated Iron Binding 233 ug/dL (112-347)
== END 2020-02-03 09:40 | disposition home or self-care (01) ==
LOC: ONCMED 09:41
PROVIDERS: PCP Family Medicine; Visit Provider Internal Medicine Medical Oncology
DX: D50.9 Iron deficiency anemia, unspecified (principal)
CPT/HCPCS: 36415; 83540; 83550; 85025

== ENCOUNTER 2020-03-04 09:40 | Outpatient (CLI) | payer MEDICARE, BC, SELFPAY ==
[2020-03-04 10:22] LABS: Basophils % 0.5 %; Eosinophils # 0.2 10^3/uL (0.0-0.8); Hematocrit 42.1 % (37.0-47.0); Hemoglobin 12.7 g/dL (11.5-15.3); Lymphocytes # 1.2 10^3/uL (0.8-4.8); Lymphocytes % 18.5 %; Mean Corpuscular HGB Conc 30.2 g/dL (30.0-36.0); Mean Corpuscular Hemoglobin 28.4 pg (28.0-34.0); Mean Corpuscular Volume 94.2 fL (81-99); Mean Platelet Volume 11.8 fL (7.4-10.4); Monocytes # 0.6 10^3/uL (0.2-0.9); Monocytes % 8.8 %; Neutrophils # 4.29 10^3/uL (1.8-7.7); Neutrophils % 68.9 %; Nucleated Red Blood Cells % 0 %; Platelet Count 162 10^3/cmm (130-400); Red Blood Count 4.47 10^6/uL (4.1-5.3); Red Cell Distribution Width 14.6 % (12.1-15.1); White Blood Count 6.2 10^3/uL (4.0-10.0)
[2020-03-04 12:56] LABS: Iron 39 ug/dL (37-145); Percent Saturation 13.4 % (20-50); Total Iron Binding Capacity 291 mcg/dl; Unsaturated Iron Binding 252 ug/dL (112-347)
== END 2020-03-04 09:41 | disposition home or self-care (01) ==
LOC: ONCMED 09:42
PROVIDERS: PCP Family Medicine; Visit Provider Internal Medicine Medical Oncology
DX: D50.9 Iron deficiency anemia, unspecified (principal)
CPT/HCPCS: 36415; 83540; 83550; 85025

== ENCOUNTER 2020-04-07 09:48 | Outpatient (CLI) | payer MEDICARE, BC, SELFPAY ==
[2020-04-07 10:16] LABS: Basophils % 0.6 %; Eosinophils # 0.2 10^3/uL (0.0-0.8); Eosinophils % 3.2 %; Hematocrit 41.2 % (37.0-47.0); Lymphocytes # 1.3 10^3/uL (0.8-4.8); Lymphocytes % 20.1 %; Mean Corpuscular HGB Conc 31.6 g/dL (30.0-36.0); Mean Corpuscular Hemoglobin 29.4 pg (28.0-34.0); Mean Corpuscular Volume 93.2 fL (81-99); Mean Platelet Volume 11.4 fL (7.4-10.4); Monocytes # 0.6 10^3/uL (0.2-0.9); Monocytes % 8.5 %; Neutrophils # 4.35 10^3/uL (1.8-7.7); Neutrophils % 67.3 %; Nucleated Red Blood Cells % 0 %; Platelet Count 183 10^3/cmm (130-400); Red Blood Count 4.42 10^6/uL (4.1-5.3); Red Cell Distribution Width 14.2 % (12.1-15.1); White Blood Count 6.5 10^3/uL (4.0-10.0)
[2020-04-07 14:56] LABS: Alanine Aminotransferase 27 U/L (0-33); Albumin Level 3.7 g/dL (3.5-5.2); Alkaline Phosphatase 75 IU/L (35-105); Anion Gap 12.7 (5-19); Aspartate Amino Transferase 19 U/L (0-32); Blood Urea Nitrogen 11 mg/dL (8-23); Calcium 8.8 mg/dL (8.5-10.5); Carbon Dioxide 31 mmol/L (22-29); Chloride 102 mmol/L (98-107); Ferritin 23 ng/mL (15-150); Globulin 3.2 g/dL (1.3-4.6); Glomerular Filtration Rate 83.7 mL/min (90-130); Glucose 149 mg/dL (65-115); Iron 37 ug/dL (37-145); Osmolality Calculated 296 mOsm/kg (285-295); Percent Saturation 12.6 % (20-50); Potassium 3.7 mmol/L (3.5-5.1); Sodium 142 mmol/L (136-145); Total Bilirubin 0.2 mg/dL (0.15-1.2); Total Iron Binding Capacity 292 mcg/dl; Total Protein 6.9 g/dL (6.6-8.7); Unsaturated Iron Binding 255 ug/dL (112-347)
== END 2020-04-07 09:49 | disposition home or self-care (01) ==
LOC: ONCMED 09:52
PROVIDERS: PCP Family Medicine; Visit Provider Internal Medicine Medical Oncology
DX: D50.9 Iron deficiency anemia, unspecified (principal)
CPT/HCPCS: 36415; 80053; 82728; 83540; 83550; 85025

== ENCOUNTER 2020-04-09 06:05 | Outpatient (CLI) | payer MEDICARE, BC, SELFPAY ==
[2020-04-09] MEDS: ferric carboxy (IVPB) 750 MG in sodium chloride 0.9% (100 ml) 100 ML 345 MG IV (13:13)
--- NOTE | 2020-04-09 13:16 | ONC FU_ITS ---
Dr. Martinez Patient Follow-Up Note Patient: Cesia Ireland Unit #: [id number]: [id number] Dicatated By: Ricky Martinez M.D.Date of Visit:Apr 09, 2020 Onc Med Follow-up/Prog Note Chief Complaint: Anemia. History of Present Illness: This is a 64 year-old woman with iron deficiency anemia. She has known AVMs with associated GI bleeding for which she has undergone EGD/bipolar diathermy on 3 occasions, in February 2014, in June 2015, and in March 2017. She also has had associated anemia. She was given parenteral iron replacement with 5 infusions of Venofer in 2015, and she also received infusions of Injectafer on 02/03/2017 and on 02/10/2017. On her follow-up visit with Dr. Cagle on 08/14/2017 she was again moderately anemic with hemoglobin 9.7 g and hematocrit 30.9%. The red cell indices were normal. The white blood cell count was normal at 6200 and the lately count was normal at 189,000. Comprehensive metabolic profile at that time was unremarkable. The serum iron was elevated at 209 mcg/dL with transferrin saturation 59%. The ferritin, though, was low at 15 ng/mL. Her repeat CBC on 08/21/2017 showed further decline in the hemoglobin to 9.1 g with white blood cell count 5100 and platelet count 170,000. Her other medical illnesses include irritable bowel syndrome, GERD, chronic venous stasis, and degenerative arthritis/degenerative disease of the spine. She is a nonsmoker. INTERIM HISTORY: She was seen here for a follow-up visit on 09/13/2017. Her CBC showed hemoglobin down to 8.4 g with white blood cell count 6600 and platelet count 196,000. The transferrin saturation was low at 4.2% and the ferritin was low at 4.2 ng/mL, consistent with iron deficiency. She was then given parenteral iron replacement with infusions of Injectafer on 09/15/2017 and 09/22/2017. She tolerated it well. On her follow-up visit on 10/23/2017 her hemoglobin had increased to 10.9 g and her transferrin saturation had increased from 4.2 to 8.6%. As she was still anemic and iron deficient, she was given 2 additional infusions of Injectafer. She has a good response with her hemoglobin increasing to 11.7 g. She was seen again on 02/16/2018. Her hemoglobin had dropped back to 8.3 g with transferrin saturation 6% and ferritin level 7.0 ng/mL, consistent with iron deficiency. She was given additional infusions of Injectafer on 02/16/2018 and on 02/23/2018. She had a good clinical response. Her CBC on 04/02/2018 showed hemoglobin increased to 13.8 g. Her transferrin saturation at increased to 23% and her ferritin was up to 95 ng/mL. By August 2018 she was moderately anemic again with hemoglobin decreased to 9.5 g. The transferrin saturation was back down to 6%, consistent with iron deficiency. She was given further parenteral iron replacement with infusions of Injectafer on 08/24/2018 and 08/31/2018. She had a good response with her hemoglobin increasing to 13 g. In May 2019 she received 2 more infusions of Injectafer with her hemoglobin decreased to 8.1 g and transferrin saturation low at 4.3%. In June 2019 she had presented to Dr. Fraga with left facial paralysis, consistent with Mendosa's palsy. She was treated with Augmentin and valacyclovir, and she also received a steroid injection. She had gradual improvement. Her repeat CBC on 06/26/2019 showed just modest improvement in the hemoglobin to 10.8 g. Transferrin saturation was still low at 13.4%, and she was given 2 additional infusions of Injectafer. She had a good response with her repeat CBC on 08/05/2019 increase in her hemoglobin to 12.8 g. Her hemoglobin then remained stable until November when her hemoglobin decreased to 9 g with transferrin saturation back down to 5.3% and ferritin low at 8 ng/mL. She was then given 2 additional infusions of Injectafer. On 03/23/2020 she underwent repeat EGD by Dr. Red. She had a few gastric antral ectasias, which were cauterized. They did not show any signs of bleeding. The only other finding was a few, small gastric polyps. She is seen for a scheduled visit. She has been feeling a lot better generally. She says her energy is much better than it was. She is doing light work at home and she is trying to walk. ECOG score is 1. She has good appetite. She has no fever or night sweats. She has no shortness of breath, cough, or chest pain. She currently has no GI or complaints. She has pain occasionally in the left shoulder. She has no other joint or bone pain. She still has some residual effects from her Mendosa's palsy, but she has no other focal neurologic symptoms. Medications: Citrucel Tablet Oral daily PRN, Dicyclomine HCl 1 Capsule (of 10 mg) Oral daily PRN, Fluticasone Propionate 2 spray(s) (of 50 mcg/act) Suspension Nasal daily, hydroCHLOROthiazide 1 Tablet (of 25 mg) Oral daily, Hydrocodone-Acetaminophen 1 Tablet (of 5-325 mg) Oral daily PRN, Omeprazole 1 Capsule (of 40 mg) Capsule Delayed Release Oral daily Allergies: No Known Allergies. Review of Systems: Constitutional - Her energy is better. She is doing housework and she is trying to walk. Appetite is good and weight is stable. No fever, night sweats, or hot flashes. ECOG score is 1, ENMT - No sinus congestion/drainage. No mouth sores. No sore throat or difficulty swallowing, Hematologic/Lymphatic - No abnormal bruising or bleeding, Respiratory - No shortness of breath. No cough. No pleuritic pain or hemoptysis, Cardiovascular - No angina pain. No palpitations, Gastrointestinal - No nausea or vomiting. No heartburn or acid reflux. No diarrhea or constipation. No blood in the stool or black stools, Genitourinary (F) - No dysuria or hematuria. No urinary frequency. No urgency or incontinence, Musculoskeletal - She has pain occasionally in her left shoulder. She has no other joint or bone pain, Integumentary - No skin rash, Neurologic - No headache or dizziness. No numbness or tingling. No other focal neurologic symptoms, Psychiatric - No anxiety or depression. No insomnia. Vital Signs: Performed on Apr 09, 2020 12:33 Height - 67.00 in Weight - 259.0 lbs (LOW) BSA - 2.26 sq.m BMI - 40.57 (HIGH) Temperature - 97.6 F (LOW) Pulse - 70 /min Respiration - 20 /min BP - 146/92 mm(hg) (HIGH) O2 Sat - 100 % Pain - 0 Physical Examination: Constitutional - She looks pretty good generally, Eyes - Sclerae nonicteric. Conjunctivae clear, ENMT - No lesions noted in the oral cavity, Hematologic/Lymphatic - No cervical, clavicular, or axillary adenopathy, Respiratory - Lungs are clear with good air movement bilaterally, Cardiovascular - Heart rhythm is regular. There is no murmur, gallop, or rub noted, Abdomen - Soft. Liver and spleen are not enlarged. There is no abdominal mass or ascites noted and there is no inguinal adenopathy, Extremities - No edema, Neurologic - No focal neurologic deficits noted. Lab/Imaging: CBC shows hemoglobin 13.0 g with hematocrit 41.2%. The red cell indices are normal. White blood cell count is 6500 and platelet count is 183,000. Comprehensive metabolic profile is unremarkable. The serum iron studies show low transferrin saturation at 12.6% and the ferritin is low at 23 ng/mL. Impression: 1. Patient with recurrent iron deficiency anemia. This is most likely due to GI blood loss. It is uncertain to what extent she may also have inadequate oral iron absorption. 2. She has had treatment for gastrointestinal AVMs on 3 occasions. She also has a history of gastritis/GERD. Her other medical illnesses include: 3. Irritable bowel syndrome. 4. Degenerative arthritis/degenerative disease of the spine. 5. She had a colonic polyp removed endoscopically in 2013. As of February 2018 she had become significantly anemic again, hemoglobin declining to 8.3 g. The transferrin saturation and ferritin were again consistent with iron deficiency. She was given additional infusions of Injectafer on 02/16/2018 and on 02/23/2018. She has had a very good clinical response. However, by August 2018 she was moderately anemic again with hemoglobin back down to 9.5 g. The transferrin saturation was 6%, consistent with iron deficiency. She was given further parenteral iron replacement with 2 more infusions of Injectafer. She again has had a very good clinical response. In the meantime, she underwent GI evaluation with EGD and colonoscopy. There was no evidence of any underlying malignancy. In May 2019 she was given 2 more infusions of Injectafer with her hemoglobin decreased to 8.1 g and her transferrin saturation low at 4.3%. At her follow-up visit in June 2019 she continued to complain of fatigue, and she remained mildly anemic with transferrin saturation low at 13.4%. She was given 2 more infusions of Injectafer. She had a good response, but she required treatment again in November 2019 her hemoglobin dropping back down to 9 g with transferrin saturation 5% and ferritin low at 8 ng/mL. Her hemoglobin has since then remained stable, and she has been feeling better generally. On 03/23/2020 she had repeat EGD with cauterization of several gastric antral ectasias. Her current CBC shows hemoglobin normal at 13 g, but she does have evidence of iron deficiency with transferrin saturation low at 12% and ferritin also low at 23 ng/mL. Plan: She will be given 1 additional infusion of Injectafer, as she remains iron deficient despite oral iron supplementation. I will recheck her CBC and serum iron studies when she sees Dr. Fraga in June. She will be scheduled for a follow-up visit here in 6 months. Signed By: Ricky Martinez M.D. <<Signature on File>>
== END 2020-04-09 06:06 | disposition home or self-care (01) ==
LOC: ONCMED 06:07
PROVIDERS: PCP Family Medicine; Visit Provider Internal Medicine Medical Oncology
DX: D50.0 Iron deficiency anemia secondary to blood loss (chronic) (principal); K29.51 Unspecified chronic gastritis with bleeding; K21.9 Gastro-esophageal reflux disease without esophagitis; K58.9 Irritable bowel syndrome, unspecified; M47.9 Spondylosis, unspecified; Z86.010 Personal history of colon polyps; Z79.899 Other long term (current) drug therapy
CPT/HCPCS: 96365; 99214; J1439

== ENCOUNTER → 2020-07-13 09:27 | Outpatient (BNVA) | payer MEDICARE, BC, SELFPAY | PROVIDERS: PCP Family Medicine; Referring Provider Family Medicine; Visit Provider Anesthesiology Pain Medicine | DX: M47.819 Spondylosis without myelopathy or radiculopathy, site unspecified (principal); M54.9 Dorsalgia, unspecified; M54.6 Pain in thoracic spine; Z79.891 Long term (current) use of opiate analgesic; M40.294 Other kyphosis, thoracic region | CPT/HCPCS: 72072; 99205 ==

== ENCOUNTER 2020-07-13 10:52 | Outpatient (CLI) | payer MEDICARE, BC, SELFPAY ==
--- NOTE | 2020-07-13 11:03 | XR_ITS ---
WS: [id number] THORACIC SPINE TECHNIQUE: AP and lateral views are performed. HISTORY: M47.819 - Spondylosis without myelopathy or radiculopathy, site unspecified COMPARISON: 12/19/2016 Mild long curvature RIGHT scoliosis with marked increased thoracic kyphosis. Severe osteopenia. Large lateral bridging osteophytes beginning in the mid RIGHT lateral thoracic spine. No fractures are jeffrey ntified. Very mild progression in the degenerative spondylitic changes with disc space narrowing. XR/XR thoracic spine 3V* [id number] IMPRESSION: Increase in thoracic kyphosis with mild RIGHT scoliosis. Mild progression of de generative spondylosis. No fractures.
== END 2020-07-13 10:53 | disposition home or self-care (01) ==
LOC: RADWPI 10:57
PROVIDERS: PCP Family Medicine; Visit Provider Anesthesiology Pain Medicine
DX: M47.819 Spondylosis without myelopathy or radiculopathy, site unspecified (principal); M40.294 Other kyphosis, thoracic region
CPT/HCPCS: 72072

== ENCOUNTER → 2020-08-07 10:36 | Outpatient (BNVA) | payer MEDICARE, BC, SELFPAY | PROVIDERS: PCP Family Medicine; Visit Provider Anesthesiology Pain Medicine | DX: M47.814 Spondylosis without myelopathy or radiculopathy, thoracic region (principal); M54.9 Dorsalgia, unspecified; Z79.891 Long term (current) use of opiate analgesic | CPT/HCPCS: 99215 ==

== ENCOUNTER 2020-09-09 13:03 | Outpatient (CLI) | payer MEDICARE, BC, SELFPAY ==
--- NOTE | 2020-09-09 13:15 | MM_ITS ---
WS: [id number] BILATERAL DIGITAL SCREENING MAMMOGRAPHY WITH CAD CLINICAL INFORMATION: SCREENING HISTORY: Screening mammogram. No current complaints. COMPARISON: July 01, 2019 TECHNIQUE: Bilateral CC and MLO views. FINDINGS: Scattered fibroglandular densities bilaterally. No suspicious focal mass, asymmetry, calcifications, or architectural distortion. No evidence of malignancy. Punctate calcifications. MM/[place] [id number] IMPRESSION: BI-RADS: 2-Benign FOLLOW UP: 1 Year Follow-up Recommend return to annual screening mammography.
== END 2020-09-09 13:04 | disposition home or self-care (01) ==
PROVIDERS: PCP Family Medicine; Visit Provider Family Medicine
DX: Z12.31 Encounter for screening mammogram for malignant neoplasm of breast (principal)
CPT/HCPCS: 77067

== ENCOUNTER 2020-10-07 07:56 | Outpatient (CLI) | payer MEDICARE, BC, SELFPAY ==
[2020-10-07 08:53] LABS: Basophils % 0.7 %; Eosinophils # 0.2 10^3/uL (0.0-0.8); Eosinophils % 3.8 %; Hematocrit 37.2 % (37.0-47.0); Hemoglobin 11.5 g/dL (11.5-15.3); Lymphocytes % 18.8 %; Mean Corpuscular HGB Conc 30.9 g/dL (30.0-36.0); Mean Corpuscular Hemoglobin 29.6 pg (28.0-34.0); Mean Corpuscular Volume 95.6 fL (81-99); Mean Platelet Volume 11.2 fL (7.4-10.4); Monocytes # 0.6 10^3/uL (0.2-0.9); Monocytes % 10.8 %; Neutrophils # 3.59 10^3/uL (1.8-7.7); Neutrophils % 65.7 %; Nucleated Red Blood Cells % 0 %; Platelet Count 184 10^3/cmm (130-400); Red Blood Count 3.89 10^6/uL (4.1-5.3); Red Cell Distribution Width 13.4 % (12.1-15.1); White Blood Count 5.5 10^3/uL (4.0-10.0)
[2020-10-07 09:13] LABS: Alanine Aminotransferase 37 U/L (0-33); Albumin Level 3.8 g/dL (3.5-5.2); Alkaline Phosphatase 59 IU/L (35-105); Anion Gap 11.9 (5-19); Aspartate Amino Transferase 33 U/L (0-32); Blood Urea Nitrogen 14 mg/dL (8-23); Calcium 8.5 mg/dL (8.5-10.5); Carbon Dioxide 29 mmol/L (22-29); Chloride 102 mmol/L (98-107); Ferritin 21 ng/mL (15-150); Glomerular Filtration Rate 71.8 mL/min (90-130); Glucose 118 mg/dL (65-115); Iron 35 ug/dL (37-145); Osmolality Calculated 290 mOsm/kg (285-295); Percent Saturation 10.8 % (20-50); Potassium 3.9 mmol/L (3.5-5.1); Sodium 139 mmol/L (136-145); Total Bilirubin 0.3 mg/dL (0.15-1.2); Total Iron Binding Capacity 324 mcg/dl; Total Protein 6.8 g/dL (6.6-8.7); Unsaturated Iron Binding 289 ug/dL (112-347)
== END 2020-10-07 07:57 | disposition home or self-care (01) ==
LOC: ONCMED 07:58
PROVIDERS: PCP Family Medicine; Visit Provider Internal Medicine Medical Oncology
DX: D50.9 Iron deficiency anemia, unspecified (principal); K21.9 Gastro-esophageal reflux disease without esophagitis; K58.9 Irritable bowel syndrome, unspecified; M47.9 Spondylosis, unspecified; Z79.899 Other long term (current) drug therapy
CPT/HCPCS: 36415; 80053; 82728; 83540; 83550; 85025

== ENCOUNTER 2020-10-09 06:02 | Outpatient (CLI) | payer MEDICARE, BC, SELFPAY ==
[2020-10-09] MEDS: ferric carboxy (IVPB) 750 MG in sodium chloride 0.9% (100 ml) 100 ML 460 MG IV (09:57)
--- NOTE | 2020-10-09 14:57 | ONC FU_ITS ---
Dr. Martinez Patient Follow-Up Note Patient: Cesia Ireland Unit #: [id number]: 1955 Dicatated By: Ricky Martinez M.D.Date of Visit:Oct 09, 2020 Onc Med Follow-up/Prog Note Chief Complaint: Anemia. History of Present Illness: This is a 65 year-old woman with iron deficiency anemia. She has known AVMs with associated GI bleeding for which she has undergone EGD/bipolar diathermy on 3 occasions, in February 2014, in June 2015, and in March 2017. She also has had associated anemia. She was given parenteral iron replacement with 5 infusions of Venofer in 2015, and she also received infusions of Injectafer on 02/03/2017 and on 02/10/2017. On her follow-up visit with Dr. Cagle on 08/14/2017 she was again moderately anemic with hemoglobin 9.7 g and hematocrit 30.9%. The red cell indices were normal. The white blood cell count was normal at 6200 and the lately count was normal at 189,000. Comprehensive metabolic profile at that time was unremarkable. The serum iron was elevated at 209 mcg/dL with transferrin saturation 59%. The ferritin, though, was low at 15 ng/mL. Her repeat CBC on 08/21/2017 showed further decline in the hemoglobin to 9.1 g with white blood cell count 5100 and platelet count 170,000. She was seen here for a follow-up visit on 09/13/2017. Her CBC showed hemoglobin down to 8.4 g with white blood cell count 6600 and platelet count 196,000. The transferrin saturation was low at 4.2% and the ferritin was low at 4.2 ng/mL, consistent with iron deficiency. She was then given parenteral iron replacement with infusions of Injectafer on 09/15/2017 and 09/22/2017. She tolerated it well. On her follow-up visit on 10/23/2017 her hemoglobin had increased to 10.9 g and her transferrin saturation had increased from 4.2 to 8.6%. As she was still anemic and iron deficient, she was given 2 additional infusions of Injectafer. She has a good response with her hemoglobin increasing to 11.7 g. She was seen again on 02/16/2018. Her hemoglobin had dropped back to 8.3 g with transferrin saturation 6% and ferritin level 7.0 ng/mL, consistent with iron deficiency. She was given additional infusions of Injectafer on 02/16/2018 and on 02/23/2018. She had a good clinical response. Her CBC on 04/02/2018 showed hemoglobin increased to 13.8 g. Her transferrin saturation at increased to 23% and her ferritin was up to 95 ng/mL. By August 2018 she was moderately anemic again with hemoglobin decreased to 9.5 g. The transferrin saturation was back down to 6%, consistent with iron deficiency. She was given further parenteral iron replacement with infusions of Injectafer on 08/24/2018 and 08/31/2018. She had a good response with her hemoglobin increasing to 13 g. In May 2019 she received 2 more infusions of Injectafer with her hemoglobin decreased to 8.1 g and transferrin saturation low at 4.3%. In June 2019 she had presented to Dr. Fraga with left facial paralysis, consistent with Mendosa's palsy. She was treated with Augmentin and valacyclovir, and she also received a steroid injection. She had gradual improvement. Her repeat CBC on 06/26/2019 showed just modest improvement in the hemoglobin to 10.8 g. Transferrin saturation was still low at 13.4%, and she was given 2 additional infusions of Injectafer. She had a good response with her repeat CBC on 08/05/2019 increase in her hemoglobin to 12.8 g. Her hemoglobin then remained stable until November when her hemoglobin decreased to 9 g with transferrin saturation back down to 5.3% and ferritin low at 8 ng/mL. She was then given 2 additional infusions of Injectafer. On 03/23/2020 she underwent repeat EGD by Dr. Red. She had a few gastric antral ectasias, which were cauterized. They did not show any signs of bleeding. The only other finding was a few, small gastric polyps. At her follow-up visit in April 2020 her hemoglobin was adequate at 13.0 g, but her transferrin saturation was still low at 12% with ferritin also low at 23 ng/mL, and I did opt to give her 1 additional infusion of Injectafer. Her other medical illnesses include irritable bowel syndrome, GERD, chronic venous stasis, and degenerative arthritis/degenerative disease of the spine. She is a nonsmoker. INTERIM HISTORY: She is seen for a follow-up visit. She says she has been getting more tired lately, though she is still doing light work. ECOG score is 1. She has good appetite. She has no fever or night sweats. She says her breathing is fairly good, though she does have some shortness of breath. She does not complain of cough and she has not been having chest pain. She has had some palpitations/heart fluttering with activity. Her acid reflux symptoms are adequately managed with omeprazole. Bowel function has been okay. She has not been aware of any blood in the stool or black stools. She has some mild bladder incontinence. She has had ongoing problems with pain in the center of her back, which does tend to get worse with activity. She has been seeing Dr. Fraga about that. She does not complain of headache. She has occasional orthostatic dizziness. She has no numbness/paresthesia or other focal neurologic symptoms. Medications: Citrucel Tablet Oral daily PRN, Daily Multiple Vitamins Tablet Oral daily, Fluticasone Propionate 2 spray(s) (of 50 mcg/act) Suspension Nasal daily, hydroCHLOROthiazide 1 Tablet (of 25 mg) Oral daily, Hydrocodone-Acetaminophen 1 Tablet (of 5-325 mg) Oral daily PRN, Omeprazole 1 Capsule (of 40 mg) Capsule Delayed Release Oral daily Allergies: No Known Allergies. Vital Signs: Performed on Oct 09, 2020 09:07 Height - 67.00 in Weight - 262.8 lbs (HIGH) BSA - 2.27 sq.m BMI - 41.16 (HIGH) Temperature - 98.2 F (LOW) Pulse - 78 /min Respiration - 18 /min BP - 138/72 mm(hg) O2 Sat - 96 % Pain - 0 Fatigue - 7 Physical Examination: Constitutional - She looks pretty good generally, Eyes - Sclerae nonicteric. Conjunctivae clear, ENMT - No lesions noted in the oral cavity, Hematologic/Lymphatic - No cervical, clavicular, or axillary adenopathy, Respiratory - Lungs are clear with good air movement bilaterally, Cardiovascular - Heart rhythm is regular. There is a II/ systolic murmur. There is no gallop or rub noted, Abdomen - Soft. Liver and spleen are not enlarged. There is no abdominal mass or ascites noted and there is no inguinal adenopathy, Extremities - Slight edema, Neurologic - No focal neurologic deficits noted. Lab/Imaging: CBC shows hemoglobin 11.5 g, white blood cell count 5500, and platelet count 184,000. Comprehensive metabolic profile is unremarkable except for slightly elevated SGOT and SGPT levels. The serum iron studies show low transferrin saturation at 10.5%. The ferritin is low at 21 ng/mL. Problem List: 1. Recurrent iron deficiency anemia. 2. She has had treatment for gastrointestinal AVMs on 3 occasions. She also has a history of gastritis/GERD. 3. Irritable bowel syndrome. 4. Degenerative arthritis/degenerative disease of the spine. 5. She had a colonic polyp removed endoscopically in 2013. Problems Addressed with this Encounter and Plan: Patient with recurrent iron deficiency anemia. This is most likely due to GI blood loss. She has had treatment for gastrointestinal AVMs on 3 occasions. It is uncertain to what extent she may also have inadequate oral iron absorption. She has responded well to parenteral iron replacement with Injectafer, but she is now mildly anemic again with low transferrin saturation and low serum ferritin, consistent with iron deficiency. As such, she will be given additional parenteral iron replacement with 2 infusions of Injectafer. She also bring in a stool sample for FIT. If that is positive, she may want to consult with Dr. Red. Signed By: Ricky Martinez M.D. <<Signature on File>>
== END 2020-10-09 06:03 | disposition home or self-care (01) ==
LOC: ONCMED 06:04
PROVIDERS: PCP Family Medicine; Visit Provider Internal Medicine Medical Oncology
DX: D50.0 Iron deficiency anemia secondary to blood loss (chronic) (principal); K21.9 Gastro-esophageal reflux disease without esophagitis; K58.9 Irritable bowel syndrome, unspecified; M47.9 Spondylosis, unspecified; Z86.010 Personal history of colon polyps; Z79.899 Other long term (current) drug therapy
CPT/HCPCS: 96365; 99214; J1439

== ENCOUNTER 2020-10-16 06:06 | Outpatient (CLI) | payer MEDICARE, BC, SELFPAY ==
[2020-10-16] MEDS: ferric carboxy (IVPB) 750 MG in sodium chloride 0.9% (100 ml) 100 ML 460 MG IV (09:30)
== END 2020-10-16 06:07 | disposition home or self-care (01) ==
LOC: ONCMED 06:08
PROVIDERS: PCP Family Medicine; Visit Provider Internal Medicine Medical Oncology
DX: D50.9 Iron deficiency anemia, unspecified (principal)
CPT/HCPCS: 96365; J1439

== ENCOUNTER 2020-10-19 10:16 | Outpatient (CLI) | payer MEDICARE, BC, SELFPAY | END 2020-10-19 10:17 | disposition home or self-care (01) | PROVIDERS: PCP Family Medicine; Visit Provider Internal Medicine Medical Oncology | DX: D50.9 Iron deficiency anemia, unspecified (principal) | CPT/HCPCS: 82274 ==

== ENCOUNTER 2020-11-13 10:39 | Outpatient (CLI) | payer MEDICARE, BC, SELFPAY ==
[2020-11-13 11:09] LABS: Basophils % 0.5 %; Eosinophils # 0.3 10^3/uL (0.0-0.8); Eosinophils % 4.6 %; Hematocrit 37.4 % (37.0-47.0); Hemoglobin 11.7 g/dL (11.5-15.3); Lymphocytes # 1.1 10^3/uL (0.8-4.8); Lymphocytes % 17.7 %; Mean Corpuscular HGB Conc 31.3 g/dL (30.0-36.0); Mean Corpuscular Hemoglobin 31.5 pg (28.0-34.0); Mean Corpuscular Volume 100.5 fL (81-99); Mean Platelet Volume 10.6 fL (7.4-10.4); Monocytes # 0.6 10^3/uL (0.2-0.9); Monocytes % 9.8 %; Neutrophils # 4.09 10^3/uL (1.8-7.7); Neutrophils % 66.9 %; Nucleated Red Blood Cells % 0 %; Platelet Count 169 10^3/cmm (130-400); Red Blood Count 3.72 10^6/uL (4.1-5.3); Red Cell Distribution Width 15.9 % (12.1-15.1); White Blood Count 6.1 10^3/uL (4.0-10.0)
[2020-11-13 11:33] LABS: Ferritin 151 ng/mL (15-150); Iron 49 ug/dL (37-145); Percent Saturation 19.2 % (20-50); Total Iron Binding Capacity 255 mcg/dl; Unsaturated Iron Binding 206 ug/dL (112-347)
== END 2020-11-13 10:40 | disposition home or self-care (01) ==
LOC: ONCMED 10:43
PROVIDERS: PCP Family Medicine; Visit Provider Internal Medicine Medical Oncology
DX: D50.8 Other iron deficiency anemias (principal)
CPT/HCPCS: 36415; 82728; 83540; 83550; 85025

== ENCOUNTER → 2020-11-27 10:59 | Outpatient (BNVA) | payer MEDICARE, BC, SELFPAY | PROVIDERS: PCP Family Medicine; Visit Provider Anesthesiology Pain Medicine | DX: M47.814 Spondylosis without myelopathy or radiculopathy, thoracic region (principal); Z79.891 Long term (current) use of opiate analgesic | CPT/HCPCS: 99213 ==

== ENCOUNTER 2020-12-18 08:53 | Outpatient (CLI) | payer MEDICARE, BC, SELFPAY ==
[2020-12-18 09:26] LABS: Basophils % 0.4 %; Eosinophils # 0.3 10^3/uL (0.0-0.8); Eosinophils % 5.1 %; Hematocrit 35.1 % (37.0-47.0); Lymphocytes # 1.1 10^3/uL (0.8-4.8); Lymphocytes % 19.1 %; Mean Corpuscular HGB Conc 31.3 g/dL (30.0-36.0); Mean Corpuscular Hemoglobin 30.3 pg (28.0-34.0); Mean Corpuscular Volume 96.7 fl (81-99); Mean Platelet Volume 10.8 fL (7.4-10.4); Monocytes # 0.5 10^3/uL (0.2-0.9); Monocytes % 8.9 %; Neutrophils # 3.64 10^3/uL (1.8-7.7); Neutrophils % 66.1 %; Nucleated Red Blood Cells % 0 %; Platelet Count 195 10^3/cmm (130-400); Red Blood Count 3.63 10^6/uL (4.1-5.3); Red Cell Distribution Width 14.6 % (12.1-15.1); White Blood Count 5.5 10^3/uL (4.0-10.0)
[2020-12-18 09:44] LABS: Ferritin 47 ng/mL (15-150); Iron 46 ug/dL (37-145); Total Iron Binding Capacity 287 mcg/dl; Unsaturated Iron Binding 241 ug/dL (112-347)
== END 2020-12-18 08:54 | disposition home or self-care (01) ==
LOC: ONCMED 08:59
PROVIDERS: PCP Family Medicine; Visit Provider Internal Medicine Medical Oncology
DX: D50.9 Iron deficiency anemia, unspecified (principal)
CPT/HCPCS: 36415; 82728; 83540; 83550; 85025

== ENCOUNTER 2020-12-25 05:39 | Outpatient (CLI) | payer MEDICARE, BC, SELFPAY ==
[2020-12-25] MEDS: sodium chloride 0.9% (100 ml) 100 ML 75 ML (09:19)
[2020-12-25] MEDS: ferric carboxy (IVPB) 750 MG in sodium chloride 0.9% (100 ml) 100 ML 460 MG IV (09:19)
== END 2020-12-25 05:40 | disposition home or self-care (01) ==
PROVIDERS: PCP Family Medicine; Visit Provider Internal Medicine Medical Oncology
DX: D50.9 Iron deficiency anemia, unspecified (principal); Z79.899 Other long term (current) drug therapy
CPT/HCPCS: 96374; J1439

== ENCOUNTER 2021-01-01 05:53 | Outpatient (CLI) | payer MEDICARE, BC, SELFPAY ==
[2021-01-01] MEDS: ferric carboxy (PYXIS) 750 mg/15 mL INJ IV (09:26)
[2021-01-01] MEDS: sodium chloride 0.9% 100 mL Bag IV (09:26)
== END 2021-01-01 05:54 | disposition home or self-care (01) ==
LOC: ONCMED 05:54
PROVIDERS: PCP Family Medicine; Visit Provider Internal Medicine Medical Oncology
DX: D50.9 Iron deficiency anemia, unspecified (principal); Z79.899 Other long term (current) drug therapy
CPT/HCPCS: 96365; J1439

== ENCOUNTER 2021-02-08 14:37 | Outpatient (CLI) | payer MEDICARE, BC, SELFPAY ==
[2021-02-08 16:12] LABS: Basophils % 0.6 %; Eosinophils # 0.3 10^3/uL (0.0-0.8); Eosinophils % 4.7 %; Hematocrit 38.6 % (37.0-47.0); Hemoglobin 12.4 g/dL (11.5-15.3); Lymphocytes # 1.2 10^3/uL (0.8-4.8); Lymphocytes % 19.3 %; Mean Corpuscular HGB Conc 32.1 g/dL (30.0-36.0); Mean Corpuscular Hemoglobin 31.2 pg (28.0-34.0); Mean Platelet Volume 11.6 fL (7.4-10.4); Monocytes # 0.5 10^3/uL (0.2-0.9); Monocytes % 8.2 %; Neutrophils # 4.26 10^3/uL (1.8-7.7); Neutrophils % 66.9 %; Nucleated Red Blood Cells % 0 %; Platelet Count 161 10^3/cmm (130-400); Red Blood Count 3.98 10^6/uL (4.1-5.3); Red Cell Distribution Width 14.6 % (12.1-15.1); White Blood Count 6.4 10^3/uL (4.0-10.0)
[2021-02-08 17:35] LABS: Ferritin 125 ng/mL (15-150); Iron 55 ug/dL (37-145); Percent Saturation 19.8 % (20-50); Total Iron Binding Capacity 277 mcg/dl; Unsaturated Iron Binding 222 ug/dL (112-347)
== END 2021-02-08 14:38 | disposition home or self-care (01) ==
PROVIDERS: PCP Family Medicine; Visit Provider Internal Medicine Medical Oncology
DX: D50.9 Iron deficiency anemia, unspecified (principal); Z87.19 Personal history of other diseases of the digestive system; K58.9 Irritable bowel syndrome, unspecified; M47.9 Spondylosis, unspecified; Z79.899 Other long term (current) drug therapy
CPT/HCPCS: 36415; 82728; 83540; 83550; 85025

== ENCOUNTER 2021-02-09 06:36 | Outpatient (CLI) | payer MEDICARE, BC, SELFPAY ==
--- NOTE | 2021-02-09 19:54 | ONC FU_ITS ---
Dr. Martinez Patient Follow-Up Note Patient: Cesia Ireland Unit #: [id number]: 1955 Dicatated By: Ricky Martinez M.D.Date of Visit:Feb 09, 2021 Onc Med Follow-up/Prog Note Chief Complaint: Anemia. History of Present Illness: This is a 66 year-old woman with iron deficiency anemia. She has known AVMs with associated GI bleeding for which she has undergone EGD/bipolar diathermy on 3 occasions, in February 2014, in June 2015, and in March 2017. She also has had associated anemia. She was given parenteral iron replacement with 5 infusions of Venofer in 2015, and she also received infusions of Injectafer on 02/03/2017 and on 02/10/2017. On her follow-up visit with Dr. Cagle on 08/14/2017 she was again moderately anemic with hemoglobin 9.7 g and hematocrit 30.9%. The red cell indices were normal. The white blood cell count was normal at 6200 and the lately count was normal at 189,000. Comprehensive metabolic profile at that time was unremarkable. The serum iron was elevated at 209 mcg/dL with transferrin saturation 59%. The ferritin, though, was low at 15 ng/mL. Her repeat CBC on 08/21/2017 showed further decline in the hemoglobin to 9.1 g with white blood cell count 5100 and platelet count 170,000. She was seen here for a follow-up visit on 09/13/2017. Her CBC showed hemoglobin down to 8.4 g with white blood cell count 6600 and platelet count 196,000. The transferrin saturation was low at 4.2% and the ferritin was low at 4.2 ng/mL, consistent with iron deficiency. She was then given parenteral iron replacement with infusions of Injectafer on 09/15/2017 and 09/22/2017. She tolerated it well. On her follow-up visit on 10/23/2017 her hemoglobin had increased to 10.9 g and her transferrin saturation had increased from 4.2 to 8.6%. As she was still anemic and iron deficient, she was given 2 additional infusions of Injectafer. She has a good response with her hemoglobin increasing to 11.7 g. She was seen again on 02/16/2018. Her hemoglobin had dropped back to 8.3 g with transferrin saturation 6% and ferritin level 7.0 ng/mL, consistent with iron deficiency. She was given additional infusions of Injectafer on 02/16/2018 and on 02/23/2018. She had a good clinical response. Her CBC on 04/02/2018 showed hemoglobin increased to 13.8 g. Her transferrin saturation at increased to 23% and her ferritin was up to 95 ng/mL. By August 2018 she was moderately anemic again with hemoglobin decreased to 9.5 g. The transferrin saturation was back down to 6%, consistent with iron deficiency. She was given further parenteral iron replacement with infusions of Injectafer on 08/24/2018 and 08/31/2018. She had a good response with her hemoglobin increasing to 13 g. In May 2019 she received 2 more infusions of Injectafer with her hemoglobin decreased to 8.1 g and transferrin saturation low at 4.3%. In June 2019 she had presented to Dr. Fraga with left facial paralysis, consistent with Mendosa's palsy. She was treated with Augmentin and valacyclovir, and she also received a steroid injection. She had gradual improvement. Her repeat CBC on 06/26/2019 showed just modest improvement in the hemoglobin to 10.8 g. Transferrin saturation was still low at 13.4%, and she was given 2 additional infusions of Injectafer. She had a good response with her repeat CBC on 08/05/2019 increase in her hemoglobin to 12.8 g. Her hemoglobin then remained stable until November when her hemoglobin decreased to 9 g with transferrin saturation back down to 5.3% and ferritin low at 8 ng/mL. She was then given 2 additional infusions of Injectafer. On 03/23/2020 she underwent repeat EGD by Dr. Red. She had a few gastric antral ectasias, which were cauterized. They did not show any signs of bleeding. The only other finding was a few, small gastric polyps. At her follow-up visit in April 2020 her hemoglobin was adequate at 13.0 g, but her transferrin saturation was still low at 12% with ferritin also low at 23 ng/mL, and I did opt to give her 1 additional infusion of Injectafer. Her other medical illnesses include irritable bowel syndrome, GERD, chronic venous stasis, and degenerative arthritis/degenerative disease of the spine. She is a nonsmoker. INTERIM HISTORY: As of her follow-up visit in October 2020 her hemoglobin is back down to 11.5 g with transferrin saturation 10.8%, and she was again given parenteral iron replacement with 2 infusions of Injectafer. As of 12/18/2020 her hemoglobin was basically unchanged at 11.0 g with her transferrin saturation still low at 16.0%. She was given 2 more infusions of Injectafer. She is seen for a follow-up visit. She has noted improvement in her energy/activity tolerance following the iron infusions in December. Her ECOG score is one. She has good appetite. She has no fever or night sweats. She has no shortness of breath, cough, or chest pain. She has no GI complaints other than some acid reflux, which she manages pretty well with omeprazole. Bladder function remains adequate. She has a little bit of stress incontinence. She has chronic back pain. Her lumbar x-ray done through the pain clinic did show severe osteopenia. She has occasional sinus headache. She has no focal neurologic symptoms. Medications: Citrucel Tablet Oral daily PRN, Daily Multiple Vitamins Tablet Oral daily, Fluticasone Propionate 2 spray(s) (of 50 mcg/act) Suspension Nasal daily, hydroCHLOROthiazide 1 Tablet (of 25 mg) Oral daily, Hydrocodone-Acetaminophen 1 Tablet (of 5-325 mg) Oral daily PRN, Omeprazole 1 Capsule (of 40 mg) Capsule Delayed Release Oral daily Allergies: No Known Allergies. Vital Signs: Performed on Feb 09, 2021 11:55 Height - 67.00 in Weight - 258.4 lbs (LOW) BSA - 2.25 sq.m BMI - 40.47 (HIGH) Temperature - 98.3 F (LOW) Pulse - 74 /min Respiration - 18 /min BP - 129/79 mm(hg) O2 Sat - 97 % Pain - 0 Fatigue - 1 Physical Examination: Constitutional - She looks pretty good generally, Eyes - Sclerae nonicteric. Conjunctivae clear, ENMT - No lesions noted in the oral cavity, Hematologic/Lymphatic - No cervical, clavicular, or axillary adenopathy, Respiratory - Lungs are clear with good air movement bilaterally, Cardiovascular - Heart rhythm is regular. There is a II/ systolic murmur. There is no gallop or rub noted, Abdomen - Soft. Liver and spleen are not enlarged. There is no abdominal mass or ascites noted and there is no inguinal adenopathy, Extremities - Slight edema, Neurologic - No focal neurologic deficits noted. Lab/Imaging: Test performed on Feb 08, 2021 15:22 Ferritin 125 ng/mL Iron 55 mcg/dL Iron Binding Capacity (TIBC) 277 mcg/dl % Iron Saturation 19.8 % UIBC 222 mcg/dL WBC 6.4 10 3/uL RBC 3.98 10 6/uL HGB 12.4 g/dL HCT 38.6 % MCV 97.0 fl MCH 31.2 pg MCHC 32.1 g/dL RDW 14.6 % Platelet Count 161 10 3/cmm MPV 11.6 fL Neutrophils 4.26 10 3/uL Lymphocytes 1.2 10 3/uL Monocytes 0.5 10 3/uL Eosinophils 0.3 10 3/uL Basophils 0.0 10 3/uL Neutrophil % 66.9 % Lymphocyte % 19.3 % Monocyte % 8.2 % Eosinophil % 4.7 % Basophils % 0.6 % NRBC % 0 % Problem List: 1. Recurrent iron deficiency anemia. 2. She has had treatment for gastrointestinal AVMs on 3 occasions. She also has a history of gastritis/GERD. 3. Irritable bowel syndrome. 4. Degenerative arthritis/degenerative disease of the spine. 5. She had a colonic polyp removed endoscopically in 2013. Problems Addressed with this Encounter and Plan: 1. Patient with recurrent iron deficiency anemia. This is thought to most likely be due to GI blood loss. She has had treatment for gastrointestinal AVMs on 3 occasions. It is uncertain to what extent she may also have inadequate oral iron absorption. She has required parenteral iron replacement with Injectafer on multiple occasions, most recently in December 2020. Her hemoglobin now has come up to 12.4 grams, and she is feeling better. Her transferrin saturation is still borderline low at 19%. At least for now she will be followed expectantly. I will see her again in 3 months, or sooner as needed if she becomes symptomatic. 2. She had evidence of osteopenia on her lumbar spine x-ray. She also has estrogen deficiency. She will be scheduled for a DEXA scan. She will have further evaluation as indicated. Signed By: Ricky Martinez M.D. <<Signature on File>>
== END 2021-02-09 06:37 | disposition home or self-care (01) ==
LOC: ONCMED 06:36
PROVIDERS: PCP Family Medicine; Visit Provider Internal Medicine Medical Oncology
DX: D50.9 Iron deficiency anemia, unspecified (principal); Z87.19 Personal history of other diseases of the digestive system; K58.9 Irritable bowel syndrome, unspecified; M47.9 Spondylosis, unspecified
CPT/HCPCS: 99214

== ENCOUNTER 2021-02-16 14:45 | Outpatient (CLI) | payer MEDICARE, BC, SELFPAY ==
--- NOTE | 2021-02-16 14:50 | XR_ITS ---
WS: [id number] SCREENING DEXA SCAN [facility] CLINICAL INFORMATION: OSTEOPENIA,ESTROGEN DEFICIENCY COMPARISON: None. FINDINGS: The L1-L4 bone mineral density measures 1.124 g/cm2. This corresponds to a T score score of -0.5 and Z score of 0.0. Left femoral neck bone mineral density measures 1.080 g/cm2. This corresponds to a T score of 0.6 and Z score of 1.0. Right femoral neck bone mineral density measures 0.990 g/cm2. This corresponds to a T score -0.1of an d Z score of 0.3. Mean femoral neck bone mineral density measures 1.035 g/cm2. This corresponds to a T score of 0.2 and Z score of 0.7. XR/XR DEXA axial skeleton* [id number] IMPRESSION: Normal bone mineralization. Patient's FRAX calculated 10 year probability for major osteoporotic fracture i s 7.5 % and osteoporotic hip fracture is 0.6%.
== END 2021-02-16 14:46 | disposition home or self-care (01) ==
PROVIDERS: PCP Family Medicine; Visit Provider Internal Medicine Medical Oncology
DX: M85.80 Other specified disorders of bone density and structure, unspecified site (principal); E28.0 Estrogen excess
CPT/HCPCS: 77080

== ENCOUNTER 2021-03-04 14:52 | Outpatient (CLI) | payer MEDICARE, BC, SELFPAY ==
[2021-03-04 15:28] LABS: Basophils # 0.1 10^3/uL (0.0-0.1); Basophils % 0.8 %; Eosinophils # 0.3 10^3/uL (0.0-0.8); Eosinophils % 4.1 %; Hematocrit 39.6 % (37.0-47.0); Hemoglobin 12.4 g/dL (11.5-15.3); Lymphocytes # 1.4 10^3/uL (0.8-4.8); Lymphocytes % 20.4 %; Mean Corpuscular HGB Conc 31.3 g/dL (30.0-36.0); Mean Corpuscular Hemoglobin 30.8 pg (28.0-34.0); Mean Corpuscular Volume 98.3 fl (81-99); Mean Platelet Volume 11.4 fL (7.4-10.4); Monocytes # 0.6 10^3/uL (0.2-0.9); Monocytes % 8.5 %; Neutrophils # 4.35 10^3/uL (1.8-7.7); Neutrophils % 65.7 %; Nucleated Red Blood Cells % 0 %; Platelet Count 175 10^3/cmm (130-400); Red Blood Count 4.03 10^6/uL (4.1-5.3); Red Cell Distribution Width 14.4 % (12.1-15.1); White Blood Count 6.6 10^3/uL (4.0-10.0)
== END 2021-03-04 14:53 | disposition home or self-care (01) ==
LOC: ONCMED 14:57
PROVIDERS: PCP Family Medicine; Visit Provider Internal Medicine Medical Oncology
DX: D50.9 Iron deficiency anemia, unspecified (principal)
CPT/HCPCS: 36415; 85025

== ENCOUNTER → 2021-03-08 10:36 | Outpatient (BNVA) | payer MEDICARE, BC, SELFPAY | PROVIDERS: PCP Family Medicine; Visit Provider Anesthesiology Pain Medicine | DX: M47.814 Spondylosis without myelopathy or radiculopathy, thoracic region (principal); Z79.891 Long term (current) use of opiate analgesic | CPT/HCPCS: 99213 ==

== ENCOUNTER 2021-05-14 08:54 | Outpatient (CLI) | payer MEDICARE, BC, SELFPAY ==
[2021-05-14 09:38] LABS: Basophils % 0.4 %; Eosinophils # 0.3 10^3/uL (0.0-0.8); Eosinophils % 4.3 %; Hematocrit 39.4 % (37.0-47.0); Hemoglobin 12.3 g/dL (11.5-15.3); Lymphocytes # 1.1 10^3/uL (0.8-4.8); Lymphocytes % 16.9 %; Mean Corpuscular HGB Conc 31.2 g/dL (30.0-36.0); Mean Corpuscular Hemoglobin 30.3 pg (28.0-34.0); Mean Platelet Volume 11.3 fL (7.4-10.4); Monocytes # 0.5 10^3/uL (0.2-0.9); Monocytes % 7.7 %; Neutrophils # 4.76 10^3/uL (1.8-7.7); Neutrophils % 70.4 %; Nucleated Red Blood Cells % 0 %; Platelet Count 180 10^3/cmm (130-400); Red Blood Count 4.06 10^6/uL (4.1-5.3); Red Cell Distribution Width 13.7 % (12.1-15.1); White Blood Count 6.8 10^3/uL (4.0-10.0)
[2021-05-14 09:54] LABS: Alanine Aminotransferase 59 U/L (0-33); Albumin Level 3.9 g/dL (3.5-5.2); Alkaline Phosphatase 57 IU/L (35-105); Anion Gap 13.8 (5-19); Aspartate Amino Transferase 51 U/L (0-32); Blood Urea Nitrogen 12 mg/dL (8-23); Calcium 8.4 mg/dL (8.5-10.5); Carbon Dioxide 27 mmol/L (22-29); Chloride 100 mmol/L (98-107); Glomerular Filtration Rate 83.5 mL/min (90-130); Glucose 101 mg/dL (65-115); Osmolality Calculated 284 mOsm/kg (285-295); Potassium 3.8 mmol/L (3.5-5.1); Sodium 137 mmol/L (136-145); Total Bilirubin 0.3 mg/dL (0.15-1.2); Total Protein 6.9 g/dL (6.6-8.7)
[2021-05-14 10:14] LABS: Ferritin 52 ng/mL (15-150); Iron 35 ug/dL (37-145); Percent Saturation 11.1 % (20-50); Total Iron Binding Capacity 315 mcg/dl; Unsaturated Iron Binding 280 ug/dL (112-347)
[2021-05-14 10:30] LABS: 25 Hydroxy Vitamin D 25 ng/mL (30-100)
== END 2021-05-14 08:55 | disposition home or self-care (01) ==
LOC: ONCMED 09:07
PROVIDERS: PCP Family Medicine; Visit Provider Internal Medicine Medical Oncology
DX: D50.9 Iron deficiency anemia, unspecified (principal); M85.80 Other specified disorders of bone density and structure, unspecified site; E55.9 Vitamin D deficiency, unspecified; Z79.899 Other long term (current) drug therapy
CPT/HCPCS: 36415; 80053; 82306; 82728; 83540; 83550; 85025

== ENCOUNTER 2021-05-18 06:30 | Outpatient (CLI) | payer MEDICARE, BC, SELFPAY ==
--- NOTE | 2021-05-22 09:43 | ONC FU_ITS ---
Dr. Martinez Patient Follow-Up Note Patient: Cesia Ireland Unit #: [id number]: 1955 Dicatated By: Ricky Martinez M.D.Date of Visit:May 18, 2021 Onc Med Follow-up/Prog Note Chief Complaint: Anemia. History of Present Illness: This is a 66 year-old woman with iron deficiency anemia. She has known AVMs with associated GI bleeding for which she has undergone EGD/bipolar diathermy on 3 occasions, in February 2014, in June 2015, and in March 2017. She also has had associated anemia. She was given parenteral iron replacement with 5 infusions of Venofer in 2015, and she also received infusions of Injectafer on 02/03/2017 and on 02/10/2017. On her follow-up visit with Dr. Cagle on 08/14/2017 she was again moderately anemic with hemoglobin 9.7 g and hematocrit 30.9%. The red cell indices were normal. The white blood cell count was normal at 6200 and the lately count was normal at 189,000. Comprehensive metabolic profile at that time was unremarkable. The serum iron was elevated at 209 mcg/dL with transferrin saturation 59%. The ferritin, though, was low at 15 ng/mL. Her repeat CBC on 08/21/2017 showed further decline in the hemoglobin to 9.1 g with white blood cell count 5100 and platelet count 170,000. She was seen here for a follow-up visit on 09/13/2017. Her CBC showed hemoglobin down to 8.4 g with white blood cell count 6600 and platelet count 196,000. The transferrin saturation was low at 4.2% and the ferritin was low at 4.2 ng/mL, consistent with iron deficiency. She was then given parenteral iron replacement with infusions of Injectafer on 09/15/2017 and 09/22/2017. She tolerated it well. On her follow-up visit on 10/23/2017 her hemoglobin had increased to 10.9 g and her transferrin saturation had increased from 4.2 to 8.6%. As she was still anemic and iron deficient, she was given 2 additional infusions of Injectafer. She has a good response with her hemoglobin increasing to 11.7 g. She was seen again on 02/16/2018. Her hemoglobin had dropped back to 8.3 g with transferrin saturation 6% and ferritin level 7.0 ng/mL, consistent with iron deficiency. She was given additional infusions of Injectafer on 02/16/2018 and on 02/23/2018. She had a good clinical response. Her CBC on 04/02/2018 showed hemoglobin increased to 13.8 g. Her transferrin saturation at increased to 23% and her ferritin was up to 95 ng/mL. By August 2018 she was moderately anemic again with hemoglobin decreased to 9.5 g. The transferrin saturation was back down to 6%, consistent with iron deficiency. She was given further parenteral iron replacement with infusions of Injectafer on 08/24/2018 and 08/31/2018. She had a good response with her hemoglobin increasing to 13 g. In May 2019 she received 2 more infusions of Injectafer with her hemoglobin decreased to 8.1 g and transferrin saturation low at 4.3%. In June 2019 she had presented to Dr. Fraga with left facial paralysis, consistent with Mendosa's palsy. She was treated with Augmentin and valacyclovir, and she also received a steroid injection. She had gradual improvement. Her repeat CBC on 06/26/2019 showed just modest improvement in the hemoglobin to 10.8 g. Transferrin saturation was still low at 13.4%, and she was given 2 additional infusions of Injectafer. She had a good response with her repeat CBC on 08/05/2019 increase in her hemoglobin to 12.8 g. Her hemoglobin then remained stable until November when her hemoglobin decreased to 9 g with transferrin saturation back down to 5.3% and ferritin low at 8 ng/mL. She was then given 2 additional infusions of Injectafer. On 03/23/2020 she underwent repeat EGD by Dr. Red. She had a few gastric antral ectasias, which were cauterized. They did not show any signs of bleeding. The only other finding was a few, small gastric polyps. At her follow-up visit in April 2020 her hemoglobin was adequate at 13.0 g, but her transferrin saturation was still low at 12% with ferritin also low at 23 ng/mL, and I did opt to give her 1 additional infusion of Injectafer. Her other medical illnesses include irritable bowel syndrome, GERD, chronic venous stasis, and degenerative arthritis/degenerative disease of the spine. She is a nonsmoker. INTERIM HISTORY: As of her follow-up visit in October 2020 her hemoglobin is back down to 11.5 g with transferrin saturation 10.8%, and she was again given parenteral iron replacement with 2 infusions of Injectafer. As of 12/18/2020 her hemoglobin was basically unchanged at 11.0 g with her transferrin saturation still low at 16.0%. She was given 2 more infusions of Injectafer. She did show some response with her repeat CBC on 02/08/2021 showing her hemoglobin increased to 12.4 g, though at that point her transferrin saturation was still borderline low at 19.8%. She is seen for a follow-up visit. She indicates that she had follow-up with Dr. Red in March. She has continued taking an oral iron supplement daily. She has had some improvement in her energy/activity tolerance. She says she does not do a lot, but she stays busy. ECOG score is 1. She has good appetite. She has no fever or night sweats. She has not had sore mouth or throat. She does not complain of cough, and she has not been having shortness of breath or chest pain. She currently has no GI or complaints. She continues to have low back pain. She is followed at pain clinic. Her DEXA scan in February showed just mild osteopenia with T score -0.5 in the lumbar spine. Medications: Citrucel Tablet Oral daily PRN, Daily Multiple Vitamins Tablet Oral daily, Fluticasone Propionate 2 spray(s) (of 50 mcg/act) Suspension Nasal daily, hydroCHLOROthiazide 1 Tablet (of 25 mg) Oral daily, Hydrocodone-Acetaminophen 1 Tablet (of 5-325 mg) Oral daily PRN, Omeprazole 1 Capsule (of 40 mg) Capsule Delayed Release Oral daily Allergies: No Known Allergies. Vital Signs: Performed on May 18, 2021 13:02 Height - 67.00 in Weight - 263.8 lbs (HIGH) BSA - 2.27 sq.m BMI - 41.32 (HIGH) Temperature - 97.9 F (LOW) Pulse - 75 /min Respiration - 17 /min BP - 141/83 mm(hg) (HIGH) O2 Sat - 96 % Pain - 0 Fatigue - 2 Physical Examination: Constitutional - She looks pretty good generally, Eyes - Sclerae nonicteric. Conjunctivae clear, ENMT - No lesions noted in the oral cavity, Hematologic/Lymphatic - No cervical, clavicular, or axillary adenopathy, Respiratory - Lungs are clear with good air movement bilaterally, Cardiovascular - Heart rhythm is regular. There is a II/ systolic murmur. There is no gallop or rub noted, Abdomen - Distended. Liver and spleen are not enlarged. There is no abdominal mass or ascites noted and there is no inguinal adenopathy, Extremities - Slight edema, Neurologic - No focal neurologic deficits noted. Lab/Imaging: Test performed on May 14, 2021 09:22 Ferritin 52 ng/mL Iron 35 mcg/dL Sodium 137 mmol/L Vitamin D (25-Hydroxy), Total 25 ng/mL Iron Binding Capacity (TIBC) 315 mcg/dl Potassium 3.8 mmol/L % Iron Saturation 11.1 % Chloride 100 mmol/L CO2 27 mmol/L UIBC 280 mcg/dL Anion Gap 13.8 BUN 12 mg/dL Creatinine 0.7 mg/dL Cr Clearance (Est) 144.3000 mL/min eGFR 83.5 mL/min Glucose 101 mg/dL Osmolality - Calculated 284 mOsm/kg Calcium 8.4 mg/dL Protein, Total 6.9 g/dL Albumin 3.9 g/dL Globulin 3.0 g/dL Bilirubin, Total 0.3 mg/dL ALT (SGPT) 59 U/L AST (SGOT) 51 U/L Alkaline Phosphatase 57 IU/L WBC 6.8 10 3/uL RBC 4.06 10 6/uL HGB 12.3 g/dL HCT 39.4 % MCV 97.0 fl MCH 30.3 pg MCHC 31.2 g/dL RDW 13.7 % Platelet Count 180 10 3/cmm MPV 11.3 fL Neutrophils 4.76 10 3/uL Lymphocytes 1.1 10 3/uL Monocytes 0.5 10 3/uL Eosinophils 0.3 10 3/uL Basophils 0.0 10 3/uL Neutrophil % 70.4 % Lymphocyte % 16.9 % Monocyte % 7.7 % Eosinophil % 4.3 % Basophils % 0.4 % NRBC % 0 % Problem List: 1. Recurrent iron deficiency anemia. 2. She has had treatment for gastrointestinal AVMs on 3 occasions. She also has a history of gastritis/GERD. 3. Irritable bowel syndrome. 4. Degenerative arthritis/degenerative disease of the spine. 5. She had a colonic polyp removed endoscopically in 2013. Problems Addressed with this Encounter and Plan: 1. Patient with recurrent iron deficiency anemia. This is thought to most likely be due to GI blood loss. She has had treatment for gastrointestinal AVMs on 3 occasions. It is uncertain to what extent she may also have inadequate oral iron absorption. She has required parenteral iron replacement with Injectafer on multiple occasions, most recently in December 2020. As of 02/08/2021 her hemoglobin had increased to 12.4 grams, and she was feeling better, though her transferrin saturation was still borderline low at 19%. Since then her blood count and clinical status have remained stable. As such, she can be followed on expectant management. For now she will continue her regular follow-up with Dr. Fraga. I will see her again as needed. 2. She had evidence of osteopenia on her lumbar spine x-ray. She also has estrogen deficiency. Her DEXA scan in February 2021 showed just mild osteopenia, T score -0.5 in the lumbar spine. She is recommended to continue vitamin D supplementation. Signed By: Ricky Martinez M.D. <<Signature on File>>
== END 2021-05-18 06:31 | disposition home or self-care (01) ==
PROVIDERS: PCP Family Medicine; Visit Provider Internal Medicine Medical Oncology
DX: D50.9 Iron deficiency anemia, unspecified (principal); K21.9 Gastro-esophageal reflux disease without esophagitis; M47.9 Spondylosis, unspecified; K58.9 Irritable bowel syndrome, unspecified; I87.8 Other specified disorders of veins; Z79.899 Other long term (current) drug therapy
CPT/HCPCS: 99214

== ENCOUNTER → 2021-06-03 08:55 | Outpatient (BNVA) | payer MEDICARE, BC, SELFPAY | PROVIDERS: PCP Family Medicine; Visit Provider Anesthesiology Pain Medicine | DX: M47.814 Spondylosis without myelopathy or radiculopathy, thoracic region (principal); Z79.891 Long term (current) use of opiate analgesic | CPT/HCPCS: 99213; 99214 ==

== ENCOUNTER 2021-10-06 08:41 | Outpatient (CLI) | payer MEDICARE, BC, SELFPAY ==
--- NOTE | 2021-10-06 08:56 | MM_ITS ---
WS: [id number] Bilateral screening 3D tomosynthesis digital mammogram, 10/06/2021 Clinical Data: SCREENING Comparison: 09/09/2020, 07/01/2019, 06/05/2018, 05/29/2017, 05/10/2016, 05/04/2015, 04/25/2014, 04/22/2013. Findings: The breast parenchymal pattern shows fat replacement. No spiculated masses or clustered calcification s are seen. There are no secondary signs of carcinoma. MM/[place] [id number] Impression: 1. Negative bilateral mammogram unchanged. 2. Recommend annual screening mammograms. BIRADS: 1-Negative FOLLOW UP: 1 Year Follow-up The CAD auto design checker was used.
== END 2021-10-06 08:42 | disposition home or self-care (01) ==
LOC: RAD 08:44
PROVIDERS: PCP Family Medicine; Visit Provider Family Medicine
DX: Z12.31 Encounter for screening mammogram for malignant neoplasm of breast (principal)
CPT/HCPCS: 77063; 77067

== ENCOUNTER → 2021-10-25 09:37 | Outpatient (BNVA) | payer MEDICARE, BC, SELFPAY | PROVIDERS: PCP Family Medicine; Visit Provider Anesthesiology Pain Medicine | DX: M47.814 Spondylosis without myelopathy or radiculopathy, thoracic region (principal); Z79.891 Long term (current) use of opiate analgesic | CPT/HCPCS: 99213 ==

== ENCOUNTER 2021-11-22 13:07 | Oncology outpatient (recurring) (ONCR) | payer MEDICARE, BC, SELFPAY ==
[2021-11-22 13:39] LABS: Basophils % 0.5 %; Eosinophils # 0.3 10^3/uL (0.0-0.8); Eosinophils % 3.6 %; Hematocrit 38.9 % (37.0-47.0); Hemoglobin 12.6 g/dL (11.5-15.3); Lymphocytes # 1.4 10^3/uL (0.8-4.8); Lymphocytes % 18.9 %; Mean Corpuscular HGB Conc 32.4 g/dL (30.0-36.0); Mean Corpuscular Volume 92.6 fl (81-99); Mean Platelet Volume 11.1 fL (7.4-10.4); Monocytes # 0.6 10^3/uL (0.2-0.9); Monocytes % 7.7 %; Neutrophils # 5.21 10^3/uL (1.8-7.7); Neutrophils % 69.2 %; Nucleated Red Blood Cells % 0 %; Platelet Count 171 10^3/cmm (130-400); Red Cell Distribution Width 13.7 % (12.1-15.1); White Blood Count 7.5 10^3/uL (4.0-10.0)
[2021-11-22 14:03] LABS: Alanine Aminotransferase 42 U/L (0-33); Albumin Level 3.9 g/dL (3.5-5.2); Alkaline Phosphatase 62 IU/L (35-105); Anion Gap 13.8 (5-19); Aspartate Amino Transferase 29 U/L (0-32); Blood Urea Nitrogen 16 mg/dL (8-23); Calcium 9.1 mg/dL (8.5-10.5); Carbon Dioxide 29 mmol/L (22-29); Chloride 99 mmol/L (98-107); Globulin 3.2 g/dL (1.3-4.6); Glomerular Filtration Rate 83.5 mL/min (90-130); Glucose 95 mg/dL (65-115); Osmolality Calculated 287 mOsm/kg (285-295); Potassium 3.8 mmol/L (3.5-5.1); Sodium 138 mmol/L (136-145); Total Bilirubin 0.2 mg/dL (0.15-1.2); Total Protein 7.1 g/dL (6.6-8.7)
[2021-11-22 14:33] LABS: Ferritin 30 ng/mL (15-150); Iron 41 ug/dL (37-145); Percent Saturation 12.9 % (20-50); Total Iron Binding Capacity 316 mcg/dl; Unsaturated Iron Binding 275 ug/dL (112-347)
== END 2021-12-05 23:59 | disposition home or self-care (01) ==
PROVIDERS: PCP Family Medicine; Visit Provider Internal Medicine Medical Oncology
DX: D50.9 Iron deficiency anemia, unspecified (principal)
CPT/HCPCS: 80053; 82728; 83540; 83550; 85025; 99214

== ENCOUNTER → 2021-12-27 10:28 | Outpatient (BNVA) | payer MEDICARE, BC, SELFPAY | PROVIDERS: PCP Family Medicine; Visit Provider Anesthesiology Pain Medicine | DX: Z79.891 Long term (current) use of opiate analgesic (principal); M47.814 Spondylosis without myelopathy or radiculopathy, thoracic region | CPT/HCPCS: 99214 ==

== ENCOUNTER → 2022-04-05 09:36 | Outpatient (BNVA) | payer MEDICARE, BC, SELFPAY | PROVIDERS: PCP Family Medicine; Visit Provider Anesthesiology Pain Medicine | DX: M47.814 Spondylosis without myelopathy or radiculopathy, thoracic region (principal) | CPT/HCPCS: 99214 ==

== ENCOUNTER → 2022-05-17 10:25 | Outpatient (BNVA) | payer MEDICARE, BC, SELFPAY | PROVIDERS: PCP Family Medicine; Visit Provider Family Medicine | DX: I10 Essential (primary) hypertension (principal); D50.9 Iron deficiency anemia, unspecified | CPT/HCPCS: 80053; 80061; 85025 ==

== ENCOUNTER 2022-05-26 12:24 | Oncology outpatient (recurring) (ONCR) | payer MEDICARE, BC, SELFPAY ==
[2022-05-26 13:12] LABS: Basophils % 0.6 %; Eosinophils # 0.3 10^3/uL (0.0-0.8); Eosinophils % 4.4 %; Hemoglobin 12.3 g/dL (11.5-15.3); Lymphocytes # 1.2 10^3/uL (0.8-4.8); Lymphocytes % 17.7 %; Mean Corpuscular HGB Conc 30.8 g/dL (30.0-36.0); Mean Corpuscular Hemoglobin 29.4 pg (28.0-34.0); Mean Corpuscular Volume 95.7 fl (81-99); Mean Platelet Volume 11.2 fL (7.4-10.4); Monocytes # 0.7 10^3/uL (0.2-0.9); Monocytes % 9.7 %; Neutrophils # 4.72 10^3/uL (1.8-7.7); Neutrophils % 67.3 %; Nucleated Red Blood Cells % 0 %; Platelet Count 182 10^3/cmm (130-400); Red Blood Count 4.18 10^6/uL (4.1-5.3); Red Cell Distribution Width 13.9 % (12.1-15.1)
[2022-05-26 13:28] LABS: Ferritin 43 ng/mL (15-150); Iron 36 ug/dL (37-145); Percent Saturation 10.8 % (20-50); Total Iron Binding Capacity 333 mcg/dl; Unsaturated Iron Binding 297 ug/dL (112-347)
== END 2022-06-07 23:59 | disposition home or self-care (01) ==
PROVIDERS: Nurse Practitioner Family; PCP Family Medicine; Visit Provider Internal Medicine Medical Oncology
DX: D50.9 Iron deficiency anemia, unspecified (principal)
CPT/HCPCS: 36415; 82728; 83540; 83550; 85025; 99213

== ENCOUNTER → 2022-07-26 09:46 | Outpatient (BNVA) | payer MEDICARE, BC, SELFPAY | PROVIDERS: PCP Family Medicine; Visit Provider Family Medicine | DX: R73.9 Hyperglycemia, unspecified (principal); I10 Essential (primary) hypertension; D50.9 Iron deficiency anemia, unspecified; M47.814 Spondylosis without myelopathy or radiculopathy, thoracic region | CPT/HCPCS: 83036 ==

== ENCOUNTER → 2022-07-28 09:53 | Outpatient (BNVA) | payer MEDICARE, BC, SELFPAY | PROVIDERS: PCP Family Medicine; Visit Provider Anesthesiology Pain Medicine | DX: M47.814 Spondylosis without myelopathy or radiculopathy, thoracic region (principal) | CPT/HCPCS: 99214 ==

== ENCOUNTER 2022-10-12 08:54 | Outpatient (CLI) | payer MEDICARE, BC, SELFPAY ==
--- NOTE | 2022-10-12 09:02 | MM_ITS ---
WS: [id number] Bilateral screening 3D tomosynthesis digital mammogram, 10/12/2022 Clinical Data: SCREENING Comparison: 10/06/2021, 09/09/2020, 07/01/2019, 06/05/2018, 05/29/2017, 05/10/2016, 05/04/2015, 04/25/2014, . Findings: The breast parenchymal pattern shows fat replacement. No spiculated masses or clustered calcification s are seen. There are no secondary signs of carcinoma. MM/[place] [id number] Impression: 1. Negative bilateral mammogram unchanged. 2. Recommend annual screening mammograms. BIRADS: 1-Negative FOLLOW UP: 1 Year Follow-up The CAD mechanical car checker was used.
== END 2022-10-12 08:55 | disposition home or self-care (01) ==
LOC: RAD 08:57
PROVIDERS: PCP Family Medicine; Visit Provider Family Medicine
DX: Z12.31 Encounter for screening mammogram for malignant neoplasm of breast (principal)
CPT/HCPCS: 77063; 77067

== ENCOUNTER → 2022-10-20 10:22 | Outpatient (BNVA) | payer MEDICARE, BC, SELFPAY | PROVIDERS: PCP Family Medicine; Visit Provider Anesthesiology Pain Medicine | DX: M47.814 Spondylosis without myelopathy or radiculopathy, thoracic region (principal) | CPT/HCPCS: 99213 ==

== ENCOUNTER → 2022-11-14 11:07 | Outpatient (BNVA) | payer MEDICARE, BC, SELFPAY | PROVIDERS: PCP Family Medicine; Visit Provider Family Medicine | DX: I10 Essential (primary) hypertension (principal); R05.9 Cough, unspecified; K85.90 Acute pancreatitis without necrosis or infection, unspecified; R60.9 Edema, unspecified; R73.9 Hyperglycemia, unspecified; J20.8 Acute bronchitis due to other specified organisms; B96.89 Other specified bacterial agents as the cause of diseases classified elsewhere | CPT/HCPCS: 80053; 83690; 85025 ==

== ENCOUNTER 2022-11-30 14:30 | Oncology outpatient (recurring) (ONCR) | payer MEDICARE, BC, SELFPAY ==
[2022-11-23 12:43] VITALS: BP 147/75; PULSE 82; RESP 18; TEMP 36.6; O2SAT 93
[2022-11-23 13:23] LABS: Basophils % 0.5 %; Eosinophils # 0.3 10^3/uL (0.0-0.8); Eosinophils % 3.3 %; Hematocrit 33.5 % (37.0-47.0); Lymphocytes # 1.4 10^3/uL (0.8-4.8); Lymphocytes % 17.3 %; Mean Corpuscular HGB Conc 29.9 g/dL (30.0-36.0); Mean Corpuscular Hemoglobin 26.6 pg (28.0-34.0); Mean Corpuscular Volume 89.1 fl (81-99); Mean Platelet Volume 11.5 fL (7.4-10.4); Monocytes # 0.6 10^3/uL (0.2-0.9); Neutrophils # 5.56 10^3/uL (1.8-7.7); Neutrophils % 70.6 %; Nucleated Red Blood Cells % 0 %; Platelet Count 211 10^3/cmm (130-400); Red Blood Count 3.76 10^6/uL (4.1-5.3); White Blood Count 7.9 10^3/uL (4.0-10.0)
[2022-11-23 13:39] LABS: Ferritin 10 ng/mL (15-150); Iron 22 ug/dL (37-145); Percent Saturation 6.4 % (20-50); Total Iron Binding Capacity 342 mcg/dl; Unsaturated Iron Binding 320 ug/dL (112-347)
[2022-11-23] MEDS: ferric carboxy (IVPB) 750 MG in sodium chloride 0.9% (100 ml) 100 ML 345 MG IV (14:58)
[2022-11-23 15:26] VITALS: BP 134/57; PULSE 72; RESP 16; TEMP 36.9; O2SAT 96
[2022-11-30 15:33] VITALS: BP 126/71; PULSE 66; RESP 18; TEMP 37.1; O2SAT 98
[2022-11-30] MEDS: ferric carboxy (IVPB) 750 MG in sodium chloride 0.9% (100 ml) 100 ML 345 MG IV (15:44)
[2022-11-30 16:45] VITALS: BP 130/66; PULSE 67; RESP 18; TEMP 36.4; O2SAT 98
== END 2022-12-05 23:59 | disposition home or self-care (01) ==
PROVIDERS: PCP Family Medicine; Visit Provider Internal Medicine Medical Oncology
DX: D50.9 Iron deficiency anemia, unspecified (principal)
CPT/HCPCS: 36415; 82728; 83540; 83550; 85025; 96365; 99214; J1439

== ENCOUNTER 2022-12-28 12:54 | Oncology outpatient (recurring) (ONCR) | payer MEDICARE, BC, SELFPAY ==
[2022-12-28 13:47] VITALS: BP 164/60; PULSE 71; RESP 18; TEMP 36.8; O2SAT 98
[2022-12-28 14:04] LABS: Basophils % 0.6 %; Eosinophils # 0.3 10^3/uL (0.0-0.8); Eosinophils % 3.6 %; Hematocrit 38.4 % (36-47); Lymphocytes # 1.2 10^3/uL (0.8-4.8); Lymphocytes % 16.4 %; Mean Corpuscular Hemoglobin 29.5 pg (27-33); Mean Corpuscular Volume 95.3 fl (85-98); Mean Platelet Volume 10.9 fL (7.4-10.4); Monocytes # 0.5 10^3/uL (0.2-0.9); Monocytes % 7.5 %; Neutrophils # 5.15 10^3/uL (1.8-7.7); Neutrophils % 71.8 %; Nucleated Red Blood Cells % 0 %; Platelet Count 181 10^3/cmm (157-399); Red Blood Count 4.03 10^6/uL (3.85-5.65); Red Cell Distribution Width 18.9 % (12.1-15.1); White Blood Count 7.18 10^3/uL (3.29-11.43)
[2022-12-28 14:24] LABS: Ferritin 122 ng/mL (15-150); Iron 48 ug/dL (37-145); Percent Saturation 17.9 % (20-50); Total Iron Binding Capacity 268 mcg/dl; Unsaturated Iron Binding 220 ug/dL (112-347)
== END 2023-01-05 23:59 | disposition home or self-care (01) ==
PROVIDERS: PCP Family Medicine; Visit Provider Internal Medicine Medical Oncology
DX: D50.9 Iron deficiency anemia, unspecified (principal); K31.819 Angiodysplasia of stomach and duodenum without bleeding
CPT/HCPCS: 36415; 82728; 83540; 83550; 85025; 99213

== ENCOUNTER → 2023-01-19 08:53 | Outpatient (BNVA) | payer MEDICARE, BC, SELFPAY | PROVIDERS: PCP Family Medicine; Visit Provider Anesthesiology Pain Medicine | DX: M47.814 Spondylosis without myelopathy or radiculopathy, thoracic region (principal) | CPT/HCPCS: 99213 ==

== ENCOUNTER 2023-03-15 13:20 | Oncology outpatient (recurring) (ONCR) | payer MEDICARE, BC, SELFPAY ==
[2023-03-15 13:26] VITALS: BP 154/70; PULSE 88; RESP 16; TEMP 36; O2SAT 91
[2023-03-15 13:41] LABS: Basophils % 0.6 %; Eosinophils # 0.3 10^3/uL (0.0-0.8); Eosinophils % 4.6 %; Lymphocytes # 1.4 10^3/uL (0.8-4.8); Mean Corpuscular HGB Conc 31.6 g/dL (30-55); Mean Corpuscular Hemoglobin 30.3 pg (27-33); Mean Platelet Volume 10.9 fL (7.4-10.4); Monocytes # 0.5 10^3/uL (0.2-0.9); Monocytes % 8.1 %; Neutrophils % 65.5 %; Nucleated Red Blood Cells % 0 %; Platelet Count 185 10^3/cmm (157-399); Red Blood Count 3.96 10^6/uL (3.85-5.65); Red Cell Distribution Width 13.6 % (12.1-15.1); White Blood Count 6.56 10^3/uL (3.29-11.43)
[2023-03-15 14:13] LABS: Alanine Aminotransferase 38 U/L (0-33); Albumin Level 3.9 g/dL (3.5-5.2); Alkaline Phosphatase 56 U/L (35-105); Anion Gap 11.7 (5-19); Aspartate Amino Transferase 30 U/L (0-32); Blood Urea Nitrogen 17 mg/dL (8-23); Calcium 9.1 mg/dL (8.5-10.5); Carbon Dioxide 29 mmol/L (22-29); Chloride 102 mmol/L (98-107); Ferritin 27 ng/mL (15-150); Globulin 3.3 g/dL (1.3-4.6); Glomerular Filtration Rate 62.1 mL/min (90-130); Glucose 128 mg/dL (65-115); Iron 55 ug/dL (37-145); Osmolality Calculated 291 mOsm/kg (285-295); Percent Saturation 17.7 % (20-50); Potassium 3.7 mmol/L (3.5-5.1); Sodium 139 mmol/L (136-145); Total Bilirubin 0.3 mg/dL (0.15-1.2); Total Iron Binding Capacity 309 mcg/dl; Total Protein 7.2 g/dL (6.6-8.7); Unsaturated Iron Binding 254 ug/dL (112-347)
== END 2023-04-06 23:59 | disposition home or self-care (01) ==
PROVIDERS: Internal Medicine; PCP Family Medicine; Visit Provider Internal Medicine Medical Oncology
DX: D50.9 Iron deficiency anemia, unspecified (principal); K31.819 Angiodysplasia of stomach and duodenum without bleeding; D50.8 Other iron deficiency anemias; Z79.899 Other long term (current) drug therapy
CPT/HCPCS: 36415; 80053; 82728; 83540; 83550; 85025; 99213

== ENCOUNTER 2023-06-13 13:37 | Outpatient (CLI) | payer MEDICARE, BC, SELFPAY ==
--- NOTE | 2023-06-13 13:44 | XRR_ITS ---
PROCEDURE INFORMATION: Exam: XR Chest Exam date and time: 06/13/2023 1:51 PM Age: 68 years old Clinical indication: Condition or disease; Lung condition and disease; Pneumonia TECHNIQUE: Imaging protocol: Radiologic exam of the chest. Views: 2 views. COMPARISON: CR XR thoracic spine 3V* [id number] 07/13/2020 11:11 AM limited comparison FINDINGS: Lungs: Lung volumes are shallow. Mild diffuse prominence of the pulmonary interstitium though somewhat greater on the right. There is a slight reticulonodular pattern at the right lung base laterally, in a region not covered on the prior radiographs. No lobar consolidation is evident. Pleural spaces: No pleural effusion identified. Heart/Mediastinum: The heart is not enlarged. The mediastinum is not enlarged. Cardiomediastinal silhouette does not appear enlarged allowing for shallow inspiration. Bones/joints: Mild thoracic kyphosis, similar to previous with associated multilevel degenerative changes. A approximately 5 mm oval density superimposes the upper thoracic spine on the frontal view, and appears unchanged from 07/13/2020, and may represent iva calcification. XR/XR chest 2V* [id number] IMPRESSION: Mild diffuse prominence of the pulmonary interstitium, including a reticulonodular component on the right. This is nonspecific, and could reflect acute process, such as atypical infection or aspiration or asymmetric edema. Chronic interstitial disease could also produce a similar appearance.
== END 2023-06-13 13:38 | disposition home or self-care (01) ==
LOC: RAD 13:41
PROVIDERS: PCP Family Medicine; Visit Provider Family Medicine
DX: J18.9 Pneumonia, unspecified organism (principal); R91.8 Other nonspecific abnormal finding of lung field
CPT/HCPCS: 71046

== ENCOUNTER → 2023-06-15 09:02 | Outpatient (BNVA) | payer MEDICARE, BC, SELFPAY | PROVIDERS: PCP Family Medicine; Visit Provider Anesthesiology Pain Medicine | DX: M47.814 Spondylosis without myelopathy or radiculopathy, thoracic region (principal); M40.204 Unspecified kyphosis, thoracic region | CPT/HCPCS: 99213; 99214 ==

== ENCOUNTER → 2023-07-05 09:38 | Outpatient (BNVA) | payer MEDICARE, BC, SELFPAY | PROVIDERS: PCP Family Medicine; Visit Provider Family Medicine | DX: J18.9 Pneumonia, unspecified organism (principal); R09.02 Hypoxemia; D50.8 Other iron deficiency anemias; I10 Essential (primary) hypertension | CPT/HCPCS: 80053; 82728; 83880; 85025 ==

== ENCOUNTER 2023-07-21 09:00 | Oncology outpatient (recurring) (ONCR) | payer MEDICARE, BC, SELFPAY ==
[2023-07-14 08:27] LABS: Basophils % 0.5 %; Eosinophils # 0.3 10^3/uL (0.0-0.8); Eosinophils % 4.3 %; Hematocrit 34.7 % (36-47); Lymphocytes # 0.8 10^3/uL (0.8-4.8); Lymphocytes % 12.6 %; Mean Corpuscular HGB Conc 28.8 g/dL (30-55); Mean Corpuscular Hemoglobin 25.5 pg (27-33); Mean Corpuscular Volume 88.5 fl (85-98); Mean Platelet Volume 10.9 fL (7.4-10.4); Monocytes # 0.5 10^3/uL (0.2-0.9); Monocytes % 7.7 %; Neutrophils # 4.68 10^3/uL (1.8-7.7); Neutrophils % 74.7 %; Nucleated Red Blood Cells % 0 %; Platelet Count 205 10^3/cmm (157-399); Red Blood Count 3.92 10^6/uL (3.85-5.65); Red Cell Distribution Width 15.1 % (12.1-15.1); White Blood Count 6.26 10^3/uL (3.29-11.43)
[2023-07-14 08:29] LABS: Reticulocyte % 2.7 % (0.5-2.0)
[2023-07-14 09:23] LABS: Folate Level > 20.0 ng/mL (4.8-37.3)
[2023-07-14 09:56] LABS: Alanine Aminotransferase 25 U/L (0-33); Albumin Level 3.7 g/dL (3.5-5.2); Alkaline Phosphatase 55 U/L (35-105); Anion Gap 11.3 (5-19); Aspartate Amino Transferase 25 U/L (0-32); Blood Urea Nitrogen 14 mg/dL (8-23); Calcium 8.9 mg/dL (8.5-10.5); Carbon Dioxide 29 mmol/L (22-29); Chloride 100 mmol/L (98-107); Creatinine Clr Calc Pharmacy 86.8198; Ferritin 14 ng/mL (15-150); Globulin 3.3 g/dL (1.3-4.6); Glucose 128 mg/dL (65-115); Iron 22 ug/dL (37-145); Osmolality Calculated 286 mOsm/kg (285-295); Percent Saturation 6.3 % (20-50); Potassium 3.3 mmol/L (3.5-5.1); Sodium 137 mmol/L (136-145); Total Bilirubin 0.3 mg/dL (0.15-1.2); Total Iron Binding Capacity 345 mcg/dl; Unsaturated Iron Binding 323 ug/dL (112-347); Vitamin B12 507 pg/mL (232-1245)
[2023-07-14] MEDS: ferric carboxy (IVPB) 750 MG in sodium chloride 0.9% (100 ml) 100 ML 345 MG IV (10:44)
[2023-07-19 09:14] LABS: Methylmalonic Acid 185 nmol/L (87-318)
[2023-07-21 09:08] VITALS: BP 150/75; PULSE 69; RESP 16; TEMP 36.3; O2SAT 97
[2023-07-21] MEDS: ferric carboxy (IVPB) 750 MG in sodium chloride 0.9% (100 ml) 100 ML 345 MG IV (09:23)
[2023-07-21 09:48] VITALS: BP 111/68; PULSE 64; RESP 16; TEMP 36.3; O2SAT 94
== END 2023-08-06 23:59 | disposition home or self-care (01) ==
PROVIDERS: Internal Medicine; PCP Family Medicine; Visit Provider Internal Medicine Medical Oncology
DX: D50.9 Iron deficiency anemia, unspecified (principal); K31.819 Angiodysplasia of stomach and duodenum without bleeding; D50.8 Other iron deficiency anemias; Z79.899 Other long term (current) drug therapy
CPT/HCPCS: 36415; 80053; 82607; 82728; 82746; 83540; 83550; 83921; 84443; 85025; 85045; 96365; 99214; J1439

== ENCOUNTER 2023-08-25 07:49 | Oncology outpatient (recurring) (ONCR) | payer MEDICARE, BC, SELFPAY ==
[2023-08-25 08:10] LABS: Basophils % 0.5 %; Eosinophils # 0.3 10^3/uL (0.0-0.8); Eosinophils % 4.7 %; Hematocrit 38.2 % (36-47); Lymphocytes # 0.8 10^3/uL (0.8-4.8); Lymphocytes % 14.6 %; Mean Corpuscular HGB Conc 31.9 g/dL (30-55); Mean Corpuscular Hemoglobin 29.8 pg (27-33); Mean Corpuscular Volume 93.2 fl (85-98); Mean Platelet Volume 10.6 fL (7.4-10.4); Monocytes # 0.4 10^3/uL (0.2-0.9); Monocytes % 7.5 %; Neutrophils # 4.16 10^3/uL (1.8-7.7); Neutrophils % 72.4 %; Nucleated Red Blood Cells % 0 %; Platelet Count 182 10^3/cmm (157-399); Red Cell Distribution Width 18.5 % (12.1-15.1); White Blood Count 5.75 10^3/uL (3.29-11.43)
[2023-08-25 08:27] LABS: Alanine Aminotransferase 32 U/L (0-33); Albumin Level 3.9 g/dL (3.5-5.2); Alkaline Phosphatase 63 U/L (35-105); Anion Gap 11.4 (5-19); Aspartate Amino Transferase 31 U/L (0-32); Blood Urea Nitrogen 14 mg/dL (8-23); Calcium 9.1 mg/dL (8.5-10.5); Carbon Dioxide 29 mmol/L (22-29); Chloride 102 mmol/L (98-107); Globulin 3.7 g/dL (1.3-4.6); Glomerular Filtration Rate 71.1 mL/min (90-130); Glucose 133 mg/dL (65-115); Iron 44 ug/dL (37-145); Osmolality Calculated 290 mOsm/kg (285-295); Percent Saturation 15.8 % (20-50); Potassium 3.4 mmol/L (3.5-5.1); Sodium 139 mmol/L (136-145); Total Bilirubin 0.3 mg/dL (0.15-1.2); Total Iron Binding Capacity 278 mcg/dl; Total Protein 7.6 g/dL (6.6-8.7); Unsaturated Iron Binding 234 ug/dL (112-347)
== END 2023-09-05 23:59 | disposition home or self-care (01) ==
LOC: ONCMED 07:50
PROVIDERS: Nurse Practitioner Family; PCP Family Medicine; Visit Provider Internal Medicine Medical Oncology
DX: K31.819 Angiodysplasia of stomach and duodenum without bleeding; D50.8 Other iron deficiency anemias; Z79.899 Other long term (current) drug therapy
CPT/HCPCS: 36415; 80053; 83540; 83550; 85025; 99214

== ENCOUNTER 2023-09-14 13:30 | Oncology outpatient (recurring) (ONCR) | payer MEDICARE, BC, SELFPAY ==
[2023-09-14 13:49] LABS: Basophils # 0.1 10^3/uL (0.0-0.1); Basophils % 0.6 %; Eosinophils # 0.3 10^3/uL (0.0-0.8); Eosinophils % 4.1 %; Hematocrit 39.4 % (36-47); Lymphocytes # 1.3 10^3/uL (0.8-4.8); Lymphocytes % 16.2 %; Mean Corpuscular Hemoglobin 30.7 pg (27-33); Mean Corpuscular Volume 95.9 fl (85-98); Mean Platelet Volume 10.8 fL (7.4-10.4); Monocytes # 0.7 10^3/uL (0.2-0.9); Monocytes % 8.7 %; Neutrophils # 5.59 10^3/uL (1.8-7.7); Neutrophils % 69.9 %; Nucleated Red Blood Cells % 0 %; Platelet Count 184 10^3/cmm (157-399); Red Blood Count 4.11 10^6/uL (3.85-5.65); White Blood Count 8.01 10^3/uL (3.29-11.43)
[2023-09-14 14:07] LABS: Alanine Aminotransferase 28 U/L (0-33); Albumin Level 3.7 g/dL (3.5-5.2); Alkaline Phosphatase 65 U/L (35-105); Anion Gap 13.5 (5-19); Aspartate Amino Transferase 26 U/L (0-32); Blood Urea Nitrogen 17 mg/dL (8-23); Calcium 8.6 mg/dL (8.5-10.5); Carbon Dioxide 28 mmol/L (22-29); Chloride 103 mmol/L (98-107); Ferritin 8 ng/mL (15-150); Globulin 3.7 g/dL (1.3-4.6); Glomerular Filtration Rate 62.1 mL/min (90-130); Glucose 149 mg/dL (65-115); Iron 57 ug/dL (37-145); Osmolality Calculated 296 mOsm/kg (285-295); Percent Saturation 19.7 % (20-50); Potassium 3.5 mmol/L (3.5-5.1); Sodium 141 mmol/L (136-145); Total Bilirubin 0.2 mg/dL (0.15-1.2); Total Iron Binding Capacity 288 mcg/dl; Total Protein 7.4 g/dL (6.6-8.7); Unsaturated Iron Binding 231 ug/dL (112-347)
== END 2023-10-06 23:59 | disposition home or self-care (01) ==
PROVIDERS: Internal Medicine; PCP Family Medicine; Visit Provider Internal Medicine Medical Oncology
DX: K31.819 Angiodysplasia of stomach and duodenum without bleeding; D50.8 Other iron deficiency anemias; Z79.899 Other long term (current) drug therapy
CPT/HCPCS: 36415; 80053; 82728; 83540; 83550; 85025; 99214

== ENCOUNTER 2023-10-17 08:52 | Oncology outpatient (recurring) (ONCR) | payer MEDICARE, BC, SELFPAY ==
--- NOTE | 2023-10-17 08:57 | MM_ITS ---
WS: [id number] BILATERAL 3D TOMOSYNTHESIS DIGITAL SCREENING MAMMOGRAM WITH CAD CLINICAL INFORMATION: SCREENING HISTORY: Screening mammogram. No current complaints. COMPARISON: 2022 TECHNIQUE: Bilateral CC and MLO views. FINDINGS: Fatty-replaced breasts bilaterally. No suspicious focal mass, asymmetry, calcifications, or etl informatica architect ural distortion. No evidence of malignancy. MM/[place] [id number] IMPRESSION: BI-RADS: 1-Negative FOLLOW UP: 1 Year Follow-up Recommend return to annual screening mammography.
== END 2023-11-05 23:59 | disposition home or self-care (01) ==
LOC: RAD 08:52 → ONCMED 11-21 07:37
PROVIDERS: PCP Family Medicine; Visit Provider Family Medicine
DX: D50.8 Other iron deficiency anemias (principal); K31.819 Angiodysplasia of stomach and duodenum without bleeding; Z79.899 Other long term (current) drug therapy
CPT/HCPCS: 77063; 77067

== ENCOUNTER 2023-12-22 08:50 | Oncology outpatient (recurring) (ONCR) | payer MEDICARE, BC, SELFPAY ==
[2023-12-22 09:39] LABS: Basophils % 0.5 %; Eosinophils # 0.2 10^3/uL (0.0-0.8); Eosinophils % 4.3 %; Hematocrit 40.8 % (36-47); Lymphocytes # 0.9 10^3/uL (0.8-4.8); Lymphocytes % 16.5 %; Mean Corpuscular HGB Conc 31.1 g/dL (30-55); Mean Corpuscular Hemoglobin 29.5 pg (27-33); Mean Corpuscular Volume 94.9 fl (85-98); Mean Platelet Volume 11.3 fL (7.4-10.4); Monocytes # 0.6 10^3/uL (0.2-0.9); Monocytes % 10.5 %; Neutrophils # 3.81 10^3/uL (1.8-7.7); Neutrophils % 67.8 %; Nucleated Red Blood Cells % 0 %; Platelet Count 161 10^3/cmm (157-399); Red Cell Distribution Width 13.9 % (12.1-15.1); White Blood Count 5.62 10^3/uL (3.29-11.43)
[2023-12-22 09:59] LABS: Alanine Aminotransferase 22 U/L (0-33); Albumin Level 3.9 g/dL (3.5-5.2); Alkaline Phosphatase 56 U/L (35-105); Anion Gap 13.9 (5-19); Aspartate Amino Transferase 22 U/L (0-32); Blood Urea Nitrogen 12 mg/dL (8-23); Calcium 8.9 mg/dL (8.5-10.5); Carbon Dioxide 27 mmol/L (22-29); Chloride 101 mmol/L (98-107); Ferritin 16 ng/mL (15-150); Globulin 3.4 g/dL (1.3-4.6); Glucose 102 mg/dL (65-115); Iron 34 ug/dL (37-145); Osmolality Calculated 286 mOsm/kg (285-295); Potassium 3.9 mmol/L (3.5-5.1); Sodium 138 mmol/L (136-145); Total Bilirubin 0.3 mg/dL (0.15-1.2); Total Iron Binding Capacity 338 mcg/dl; Total Protein 7.3 g/dL (6.6-8.7); Unsaturated Iron Binding 304 ug/dL (112-347)
== END 2024-01-06 23:59 | disposition home or self-care (01) ==
LOC: ONCMED 08:51
PROVIDERS: Nurse Practitioner Family; PCP Family Medicine; Visit Provider Family Medicine
DX: D50.8 Other iron deficiency anemias (principal)
CPT/HCPCS: 36415; 80053; 82728; 83540; 83550; 85025

== ENCOUNTER 2024-03-15 07:54 | Oncology outpatient (recurring) (ONCR) | payer MEDICARE, BC, SELFPAY ==
[2024-03-15 08:24] LABS: Basophils % 0.7 %; Eosinophils # 0.3 10^3/uL (0.0-0.8); Eosinophils % 4.5 %; Hematocrit 38.8 % (36-47); Mean Corpuscular HGB Conc 31.4 g/dL (30-55); Mean Corpuscular Hemoglobin 29.3 pg (27-33); Mean Corpuscular Volume 93.3 fl (85-98); Mean Platelet Volume 10.4 fL (7.4-10.4); Monocytes # 0.5 10^3/uL (0.2-0.9); Monocytes % 7.6 %; Neutrophils # 4.24 10^3/uL (1.8-7.7); Neutrophils % 69.9 %; Nucleated Red Blood Cells % 0 %; Platelet Count 178 10^3/cmm (157-399); Red Blood Count 4.16 10^6/uL (3.85-5.65); Red Cell Distribution Width 14.9 % (12.1-15.1); White Blood Count 6.06 10^3/uL (3.29-11.43)
[2024-03-15 08:47] LABS: Alanine Aminotransferase 25 U/L (0-33); Alkaline Phosphatase 75 U/L (35-105); Anion Gap 13.8 (5-19); Aspartate Amino Transferase 29 U/L (0-32); Blood Urea Nitrogen 16 mg/dL (8-23); Calcium 8.8 mg/dL (8.5-10.5); Carbon Dioxide 28 mmol/L (22-29); Chloride 99 mmol/L (98-107); Ferritin 13 ng/mL (15-150); Globulin 2.5 g/dL (1.3-4.6); Glomerular Filtration Rate 82.7 mL/min (90-130); Glucose 111 mg/dL (65-115); Iron 27 ug/dL (37-145); Osmolality Calculated 286 mOsm/kg (285-295); Percent Saturation 7.5 % (20-50); Potassium 3.8 mmol/L (3.5-5.1); Sodium 137 mmol/L (136-145); Total Bilirubin 0.3 mg/dL (0.15-1.2); Total Iron Binding Capacity 358 mcg/dl; Total Protein 6.5 g/dL (6.6-8.7); Unsaturated Iron Binding 331 ug/dL (112-347)
[2024-03-15] MEDS: ferric carboxy (PYXIS) 750 MG in sodium chloride 0.9% (100 ml) 100 ML 345 MG IV (10:15)
[2024-03-15 10:50] VITALS: BP 135/79; PULSE 75; RESP 18; TEMP 37.1; O2SAT 95
== END 2024-04-06 23:59 | disposition home or self-care (01) ==
PROVIDERS: PCP Family Medicine; Visit Provider Nurse Practitioner Family
DX: E61.1 Iron deficiency; K31.819 Angiodysplasia of stomach and duodenum without bleeding
CPT/HCPCS: 36415; 80053; 82728; 83540; 83550; 85025; 96365; 99214; J1439

== ENCOUNTER 2024-04-25 09:53 | Outpatient (CLI) | payer MEDICARE, BC, SELFPAY ==
--- NOTE | 2024-04-25 09:56 | XR_ITS ---
WS: [id number] PA and lateral chest, 04/25/2024 Clinical Data: cough Comparison: Two-view chest, 06/13/2023 Findings: Patchy opacity is seen throughout both lungs but has not changed. This opacity probably rep resents chronic interstitial lung disease. No pneumothorax is seen. There is probably no active pneum onia. The heart is normal. The aortic arch shows tortuosity. There is a slight dextroscoliosis. XR/XR chest 2V* [id number] Impression: 1. Unchanged bilateral patchy opacity which probably represents chronic interst itial lung disease. 2. Atherosclerosis.
== END 2024-04-25 09:54 | disposition home or self-care (01) ==
LOC: RAD 09:55
PROVIDERS: PCP Family Medicine; Visit Provider Family Medicine
DX: J18.9 Pneumonia, unspecified organism (principal); Q25.46 Tortuous aortic arch; I70.0 Atherosclerosis of aorta; J98.4 Other disorders of lung
CPT/HCPCS: 71046; 80053; 80061; 83036; 85025

== ENCOUNTER → 2024-05-14 08:58 | Outpatient (BNVA) | payer MEDICARE, BC, SELFPAY | PROVIDERS: PCP Family Medicine; Visit Provider Anesthesiology Pain Medicine | DX: M47.814 Spondylosis without myelopathy or radiculopathy, thoracic region | CPT/HCPCS: 99214 ==

== ENCOUNTER 2024-06-01 08:17 | Inpatient (IN) | payer MEDICARE, BC, SELFPAY ==
[2024-06-01] VITALS (21 sets, daily range): BP systolic 125–173; BP diastolic 61–85; PULSE 74–97; RESP 17–23; TEMP 36.5–36.9; O2SAT 77–95; BMI 36.8; BMI 35.9
--- NOTE | 2024-06-01 08:23 | XRR_ITS ---
PROCEDURE INFORMATION: Exam: XR Chest Exam date and time: 06/01/2024 8:38 AM Age: 69 years old Clinical indication: Shortness of breath; Additional info: Dyspnea/cough TECHNIQUE: Imaging protocol: Radiologic exam of the chest. Views: 1 view. COMPARISON: CR XR chest 2V* [id number] 04/25/2024 10:21 AM FINDINGS: Lungs: Hypoinflation with bronchovascular crowding. Diffuse reticulonodular opacities, intervally increased at the left chest wall. Pleural spaces: Unremarkable. No pleural effusion. No pneumothorax. Heart/Mediastinum: Cardiomegaly. Vasculature: Tortuous calcified aorta. Bones/joints: Unremarkable. XR/XR chest 1V portable [id number] IMPRESSION: Findings which may be suggestive of interstitial lung disease. Consider high-resolution chest CT for further evaluation.
--- NOTE | 2024-06-01 08:23 | ECG_ITS ---
[facility]: 2024-[facility]01 Pat Name: Cesia Ireland Department: Room: Gender: Female Barrel Filler Head: : 1955 Requested By: Vincenzo Peoples Order Number: [id number] Akil MD: Stephen Diana M.D. Measurements Intervals [place] Rate: 82 P: 16 UT: 209 QRS: 7 QRSD: 97 T: 55 QT: 332 QTc: 390 Interpretive Statements SINUS RHYTHM WITH OCCASIONAL SUPRAVENTRICULAR PREMATURE COMPLEXES No previous ECG available for comparison Electronically Signed On 06-01-2024 23:04:27 ASSOCIATE DIRECTOR QA by Stephen Diana M.D. [email or web address]
--- NOTE | 2024-06-01 08:37 | W.ED.SOB ---
HPI - SOB/Dyspnea General: Chief Complaint: Shortness of Breath/Dyspnea Stated Complaint: sob Time Seen by Provider: 06/01/24 08:21 History of Present Illness: HPI Narrative: 69-year-old female presents emergency room complaining of shortness of breath. Was seen earlier in the week and started on oral antibiotics and prednisone. Patient is monitoring oxygen sat at home reported it was in the 60s. She presented to the emergency room with increasing cough. Normally she is not on oxygen at home. She is now requiring 2 L by nasal cannula. She denies any chest pain. Associated symptoms: Deny abdominal pain, chest pain or fever(s) Related Data Home Medications Medication Instructions Recorded Confirmed ferrous sulfate 325 mg (65 mg 325 mg PO BID 11/22/21 06/01/24 iron) tablet scbswfcy-vuu-iungo ac 400 1 tab PO DAILY 11/22/21 06/01/24 mcg-calcium carb 500 mg-vit K1 20 mcg tablet hydrochlorothiazide 25 mg tablet 25 mg PO DAILY 06/01/24 06/01/24 methocarbamol 750 mg tablet 750 mg PO BID PRN spasm 06/01/24 06/01/24 Previous Rx's Medication Instructions Recorded omeprazole 40 mg capsule,delayed 40 mg PO DAILY #30 caps 06/21/23 release fluticasone propionate 50 2 spray intranasal DAILY #16 grams 07/25/23 mcg/actuation nasal spray,suspension (Flonase Allergy Relief) hydrocodone 5 mg-acetaminophen 325 1 tab PO BID PRN pain 30 days #60 03/25/24 mg tablet tabs albuterol sulfate 90 mcg/actuation 2 puff inhalation Q6H PRN 04/18/24 aerosol inhaler (Ventolin HFA) shortness of breath or wheezing #8.5 grams ciprofloxacin HCl 500 mg tablet 500 mg PO BID #20 tabs 05/30/24 oseltamivir 75 mg capsule (Tamiflu) 75 mg PO BID #10 caps 05/30/24 Allergies Allergy/AdvReac Type Severity Reaction Status Date / Time gabapentin Allergy stomach Verified 05/14/24 09:02 pain Review of Systems Const: Denies: fever(s) or chills Card: Denies: chest pain Resp: Denies: dyspnea GI: Denies: abdominal pain : Denies: dysuria, urinary frequency or urinary urgency Musc: Denies: neck pain or back pain Skin/Breast: Denies: rash [facility] ED PFSH: Medical History Iron deficiency anemia AVM (arteriovenous malformation) of stomach, acquired Spondylosis AC (acromioclavicular) joint bone spurs Gallbladder attack Glaucoma Colonic polyp Degenerative arthritis Degenerative joint disease of spine Gastric AVM GERD (gastroesophageal reflux disease) IBS (irritable bowel syndrome) Venous insufficiency History of carcinoma Removal 01/30/2018 Hypertension Surgical History History of cholecystectomy H/O colonoscopy 11/05/2018 History of esophagogastroduodenoscopy (EGD) EGD/bipolar diathermy x3 Family History Mother , 77 CAD (coronary artery disease) Father , 73 CAD (coronary artery disease) Hypertension Grandmother Stroke Denies family history of Diabetes Clotting disorder Dementia Hyperlipidemia Psychiatric illness Chronic kidney disease (CKD) Suicide Anesthesia complication Bleeding disorder Lung disease Cancer Social History Smoking and tobacco/nicotine status: unknown if used tobacco/nicotine Second hand smoke exposure: No Alcohol intake: never Substance/Drug Use: never Marital status: Physical Exam Const: COMMON NORMALS: no acute distress GENERAL APPEARANCE: cooperative and comfortable ORIENTATION/CONSCIOUSNESS: Yes awake, Yes oriented to person, Yes oriented to place and Yes oriented to time HENMT: COMMON NORMALS: normocephalic, atraumatic and hearing grossly normal bilaterally HEAD & SCALP: normocephalic and atraumatic Resp: COMMON NORMALS: normal respiratory effort, No retractions, No use of accessory muscles and clear to auscultation bilaterally AUSCULTATION: clear to auscultation bilaterally Cardio: COMMON NORMALS: regular rate, regular rhythm and No murmurs present (Cardio) RATE: regular rate RHYTHM: regular rhythm GI: COMMON NORMALS: Soft to palpation and No hepatosplenomegaly present AUSCULTATION: Yes normoactive bowel sounds PALPATION: Yes Soft to palpation, No Tenderness to palpation present (GI), No Guarding due to palpation present (GI) and Yes No hepatosplenomegaly present Extremity: COMMON NORMALS: normal to inspection, capillary refill normal, no clubbing, cyanosis or edema, no calf tenderness and no pedal edema Neuro: SENSORIUM/ORIENTATION: Yes oriented to person, Yes oriented to place and Yes oriented to time Skin: COMMON NORMALS: no rashes or lesions noted GENERAL SKIN EXAM: no rashes or lesions noted Course Vital Signs: Vital signs: Vital Signs Temperature 98.5 F 06/01/24 12:53 Pulse Rate 97 06/01/24 13:21 Respiratory Rate 20 H 06/01/24 13:16 Blood Pressure 151/74 06/01/24 12:53 Pulse Oximetry 94 06/01/24 13:16 Oxygen Delivery Me thod Nasal Cannula 06/01/24 13:16 Oxygen Flow Rate 2 06/01/24 13:16 MDM - SOB/Dyspnea Medical Decision Making Acute hypoxic respiratory failure with hypoxemia secondary to RSV pneumonia. Cultures done started initially on Zosyn. Discussed with hospitalist will admit Lab Data 06/01/24 09:21 06/01/24 09:21 Labs/Radiology: Radiology Impressions Chest X-Ray 06/01/24 08:23 IMPRESSION: Findings which may be suggestive of interstitial lung disease. Consider high-resolution chest CT for further evaluation. Chest CTA 06/01/24 10:26 IMPRESSION: 1. No pulmonary embolism. 2. Nonspecific appearance of the pulmonary parenchyma which may represent fibrotic change as this has been chronic since at least 06/13/2023. Other differential to include pulmonary edema, infectious/inflammatory etiologies. 3. Right lower lobe solid nodule measuring 6 mm. For patients at low risk (minimal or absent history of smoking and of other known risk factors), recommend CT Chest at 6-12 months, then consider CT Chest at 18-24 months. For patients at high risk (history of smoking or of other known risk factors), recommend CT Chest at 6-12 months, then CT Chest at 18-24 months. (Reference: Brett) 4. Findings of prior granulomatous disease. Laboratory Results WBC 7.32 10^3/uL (3.29-11.43) 06/01/24 09:21 RBC 4.28 10^6/uL (3.85-5.65) 06/01/24 09:21 Hgb 11.50 g/dL (11.27-16.99) 06/01/24 09:21 Hct 37.8 % (36-47) 06/01/24 09:21 MCV 88.3 fl (85-98) 06/01/24 09:21 MCH 26.9 pg (27-33) L 06/01/24 09:21 MCHC 30.4 g/dL (30-55) 06/01/24 09:21 RDW 15.0 % (12.1-15.1) 06/01/24 09:21 Plt Count 210 10^3/cmm (157-399) 06/01/24 09:21 MPV 10.4 fL (7.4-10.4) 06/01/24 09:21 Neut % (Auto) 80.2 % 06/01/24 09:21 Lymph % (Auto) 9.7 % 06/01/24 09:21 Gordon % (Auto) 8.6 % 06/01/24 09:21 Eos % (Auto) 0.5 % 06/01/24 09:21 Baso % (Auto) 0.3 % 06/01/24 09: Neut # (Auto) 5.87 10^3/uL (1.8-7.7) 06/01/24 09:21 Lymph # (Auto) 0.7 10^3/uL (0.8-4.8) L 06/01/24 09:21 Gordon # (Auto) 0.6 10^3/uL (0.2-0.9) 06/01/24 09:21 Eos # (Auto) 0.0 10^3/uL (0.0-0.8) 06/01/24 09:21 Baso # (Auto) 0.0 10^3/uL (0.0-0.1) 06/01/24 09:21 Nucleated RBC % (auto) 0 % 06/01/24 09: Nucleated RBCs # 0.0 /100WBC 06/01/24 09:21 Specimen Type Arterial 06/01/24 09:28 Sample Site Radial, right 06/01/24 09:28 ABG pH 7.46 (7.35-7.45) H 06/01/24 09:28 ABG pCO2 45.3 mmHg (35-45) H 06/01/24 09:28 ABG pO2 60.4 mmHg (80.0-100.0) L 06/01/24 09:28 ABG PO2/FiO2 Ratio 215 06/01/24 09:28 ABG HCO3 32.5 mmol/L (22-26) H 06/01/24 09:28 ABG O2 Saturation 91.6 06/01/24 09:28 ABG Base Excess 7.8 mmol/L (-2.0-2.0) H 06/01/24 09:28 Tre Test Pos 06/01/24 09:28 A-a O2 Gradient 11.1 mmHg (5-10) H 06/01/24 09:28 Hematocrit 34.9 % (37-47) L 06/01/24 09:28 Hgb O2 Saturation 89.8 % (95-100) L 06/01/24 09:28 Carboxyhemoglobin 1.9 %THgb (0.4-20.1) 06/01/24 09: Methemoglobin 0.1 % (0.4-1.5) L 06/01/24 09:28 Total Hemoglobin 11.4 g/dL (12-16) L 06/01/24 09:28 Sodium 130.0 mmol/L (131-143) L 06/01/24 09:28 Potassium 3.2 mmol/L (3.5-5.0) L 06/01/24 09:28 Glucose 117.0 mg/dL (70-115) H 06/01/24 09:28 Ionized Calcium 1.1 mmol/L (1.1-1.4) 06/01/24 09:28 O2 Delivery Device Nc 06/01/24 09:28 O2 Liters/Min 2.0 % 06/01/24 09:28 FiO2 28.0 % 06/01/24 09:28 Commercial Account Executive ID Monro 06/01/24 09:28 Sodium 129 mmol/L (136-145) L 06/01/24 09:21 Potassium 3.4 mmol/L (3.5-5.1) L 06/01/24 09:21 Chloride 88 mmol/L (98-107) L 06/01/24 09:21 Carbon Dioxide 29 mmol/L (22-29) 06/01/24 09:21 Anion Gap 15.4 (5-19) 06/01/24 09:21 BUN 9 mg/dL (8-23) 06/01/24 09:21 Creatinine 0.5 mg/dL (0.5-0.9) 06/01/24 09:21 GFR Calculation 122.0 mL/min (90-130) 06/01/24 09:21 Glucose 119 mg/dL (65-115) H 06/01/24 09:21 Estimat Average Glucose 111 06/01/24 09:21 Hemoglobin A1c 5.5 % (4.0-6.0) 06/01/24 09:21 Calculated Osmolality 268 mOsm/kg (285-295) L 06/01/24 09:21 Calcium 8.4 mg/dL (8.5-10.5) L 06/01/24 09:21 Total Bilirubin 0.3 mg/dL (0.15-1.2) 06/01/24 09:21 AST 28 U/L (0-32) 06/01/24 09:21 ALT 20 U/L (0-33) 06/01/24 09:21 Alkaline Phosphatase 70 U/L (35-105) 06/01/24 09:21 Troponin T Baseline 16 ng/L (0-10) H 06/01/24 09:21 NT-Pro-B Natriuret Pep 260 pg/mL (0-125) H 06/01/24 09:21 Total Protein 7.0 g/dL (6.6-8.7) 06/01/24 09:21 Albumin 3.6 g/dL (3.5-5.2) 06/01/24 09:21 Globulin 3.4 g/dL (1.3-4.6) 06/01/24 09:21 Triglycerides 98 mg/dL (0-150) 06/01/24 09:21 Cholesterol 109 mg/dL (0-200) 06/01/24 09:21 LDL Cholesterol, Calc 55 mg/dL (50-129) 06/01/24 09:21 HDL Cholesterol 34 mg/dL (60-100) L 06/01/24 09:21 LDL/HDL Ratio 1.62 RATIO (0.00-3.22) 06/01/24 09:21 Cholesterol/HDL Ratio 3.21 mg/dL (0.0-4.40) 06/01/24 09:21 Procalcitonin 0.17 ng/mL (0-0.5) 06/01/24 09:21 TSH 1.01 uIU/mL (0.27-4.20) 06/01/24 09:21 Urine Color Yellow (Yellow) 06/01/24 09:48 Urine Appearance Clear (CLEAR) 06/01/24 09:48 Urine pH 7.0 (5-7) 06/01/24 09:48 Ur Specific [place] 1.009 (1.005-1.030) 06/01/24 09:48 Urine Protein Negative (Negative) 06/01/24 09:48 Urine Glucose (UA) Negative (Normal) 06/01/24 09:48 Urine Ketones Negative (Negative) 06/01/24 09:48 Urine Blood Negative (Negative) 06/01/24 09:48 Urine Nitrate Negative (Negative) 06/01/24 09:48 Urine Bilirubin Negative (Negative) 06/01/24 09:48 Urine Urobilinogen 0.2 mg/dL (Negative) 06/01/24 09:48 Ur Leukocyte Esterase Negative (Negative) 06/01/24 09:48 Urine RBC 0-2 /hpf (0-2) 06/01/24 09:48 Urine WBC 0-5 /hpf (0-5) 06/01/24 09:48 Ur Squamous Epith Cells 0-5 /hpf (0-5) 06/01/24 09:48 Amorphous Sediment Not Reportable 06/01/24 09:48 Urine Bacteria None seen /hpf (NONE) 06/01/24 09:48 Hyaline Casts 0-4 /lpf H 06/01/24 09:48 Coronavirus (PCR) Negative (Negative) 06/01/24 09:57 Influenza A (PCR) Negative (Negative) 06/01/24 09:57 Influenza Type B (PCR) Negative (Negative) 06/01/24 09:57 RSV (PCR) Positive (Negative) A 06/01/24 09:57 All radiology interpretation(s) finalized by discharge Discharge Plan Discharge Patient Disposition: Admitted As Inpatient Admit Provider: Yefri Robert Clinical Impression: Acute hypoxemic respiratory failure, Hyponatremia, RSV (respiratory syncytial virus pneumonia) Condition: Stable Coding Level of Care Code ED Science Analyst for Ana Hurst
[2024-06-01 09:29] LABS: Basophils % 0.3 %; Eosinophils % 0.5 %; Hematocrit 37.8 % (36-47); Lymphocytes # 0.7 10^3/uL (0.8-4.8); Lymphocytes % 9.7 %; Mean Corpuscular HGB Conc 30.4 g/dL (30-55); Mean Corpuscular Hemoglobin 26.9 pg (27-33); Mean Corpuscular Volume 88.3 fl (85-98); Mean Platelet Volume 10.4 fL (7.4-10.4); Monocytes # 0.6 10^3/uL (0.2-0.9); Monocytes % 8.6 %; Neutrophils # 5.87 10^3/uL (1.8-7.7); Neutrophils % 80.2 %; Nucleated Red Blood Cells % 0 %; Platelet Count 210 10^3/cmm (157-399); Red Blood Count 4.28 10^6/uL (3.85-5.65); White Blood Count 7.32 10^3/uL (3.29-11.43)
[2024-06-01 09:41] LABS: ABG PCO2 45.3 mmHg (35-45); ABG PH Result 7.46 (7.35-7.45); Alveolar-Arterial Oxygen Gradi 11.1 mmHg (5-10); Arterial Blood Gas Hematocrit 34.9 % (37-47); Base Excess ABG 7.8 mmol/L (-2.0-2.0); Blood Gas Allen Test Pos; Blood Gas Operator Identificat MONRO; Blood Gas Sample Site Radial, right; Blood Gas Sample Type Arterial; Carboxyhemoglobin 1.9 %THgb (0.4-20.1); HCO3 ABG 32.5 mmol/L (22-26); HGB O2 Sat 89.8 % (95-100); Ionized Calcium Level - ABG 1.1 mmol/L (1.1-1.4); Methemoglobin 0.1 % (0.4-1.5); Oxygen Device NC; Oxygen Saturation ABG 91.6; PO2 ABG 60.4 mmHg (80.0-100.0); PO2 FiO2 Ratio Arterial Blood 215; Potassium Level - ABG 3.2 mmol/L (3.5-5.0); Total Hemoglobin 11.4 g/dL (12-16)
[2024-06-01] MEDS: piperacillin-tazobactam 3.375 GM in sodium chloride 0.9% (plus) 50 ML IV (09:44)
[2024-06-01] MEDS: dexamethasone 10 mg/mL INJ IM (09:46)
[2024-06-01 09:49] LABS: Alanine Aminotransferase 20 U/L (0-33); Albumin Level 3.6 g/dL (3.5-5.2); Alkaline Phosphatase 70 U/L (35-105); Anion Gap 15.4 (5-19); Aspartate Amino Transferase 28 U/L (0-32); Blood Urea Nitrogen 9 mg/dL (8-23); Calcium 8.4 mg/dL (8.5-10.5); Carbon Dioxide 29 mmol/L (22-29); Chloride 88 mmol/L (98-107); Creatinine Clr Calc Pharmacy 82.2232; Globulin 3.4 g/dL (1.3-4.6); Glucose 119 mg/dL (65-115); Osmolality Calculated 268 mOsm/kg (285-295); Potassium 3.4 mmol/L (3.5-5.1); Sodium 129 mmol/L (136-145); Total Bilirubin 0.3 mg/dL (0.15-1.2)
[2024-06-01 09:50] LABS: Troponin(5th) Baseline 16 ng/L (0-10)
[2024-06-01 10:00] LABS: Bilirubin Urine Negative (Negative); Blood Urine Negative (Negative); Glucose Urine UA Negative (Normal); Ketones Urine Negative (Negative); Leukocyte Esterase Urine Negative (Negative); Nitrate Urine Negative (Negative); Protein Urine Negative (Negative); Specific Gravity, Urine 1.009 (1.005-1.030); Urine Appearance Clear (CLEAR); Urine Color Yellow (Yellow); Urobilinogen Urine 0.2 mg/dL (Negative)
[2024-06-01 10:05] LABS: Add Urine Microscopic? YES; Bacteria Urine None Seen /hpf; Hyaline Casts Urine 0-4 /lpf; RBC Urine 0-2 /hpf (0-2); Squamous Epithelial Cell Urine 0-5 /hpf (0-5); WBC Urine 0-5 /hpf (0-5)
--- NOTE | 2024-06-01 10:23 | ECG_ITS ---
[facility] Test Date: 2024-06-01 Pat Name: Cesia Ireland Department: Room: Gender: Female Trust Administrative Assistant: : 1955 Requested By: Vincenzo Peoples Order Number: [id number] Akil MD: Stephen Diana M.D. Measurements Intervals [place] Rate: 82 P: 0 SC: 0 QRS: 5 QRSD: 100 T: 56 QT: 369 QTc: 432 Interpretive Statements SUPRAVENTRICULAR RHYTHM Compared to ECG 06/01/2024 08:30:14 Supraventricular rhythm now present Sinus rhythm no longer present Electronically Signed On 06-01-2024 23:22:22 RADIOLOGY ASST by Stephen Diana M.D. [id number]
--- NOTE | 2024-06-01 10:26 | CTR_ITS ---
PROCEDURE INFORMATION: Exam: CTA Chest With Contrast Exam date and time: 06/01/2024 10:52 AM Age: 69 years old Clinical indication: Dyspnea TECHNIQUE: Imaging protocol: Computed tomographic angiography of the chest with contrast. Exam focused on the arteries. 3D rendering (Not supervised by radiologist): MIP and/or 3D reconstructed images were created by the technologist. Radiation optimization: All CT scans at this facility use at least one of these dose optimization techniques: automated exposure control; mA and/or kV adjustment per patient size (includes targeted exams where dose is matched to clinical indication); or iterative reconstruction. Contrast material: OMNI 350; Contrast volume: 74 ml; Contrast route: INTRAVENOUS (IV); COMPARISON: 1. CR XR chest 1V portable [id number] 06/01/2024 8:38 AM 2. CR XR chest 2V* [id number] 04/25/2024 10:21 AM 3. CR XR chest 2V* [id number] 06/13/2023 1:51 PM RADIATION DOSE METRICS: Total DLP (mGy-cm): 524.7 FINDINGS: Pulmonary arteries: Normal. No pulmonary emboli. Aorta: Unremarkable. No aortic aneurysm. No aortic dissection. Lungs: Mild thickening of the intra lobular septal lines with diffuse ground-glass opacities. No honeycombing. Diffuse calcified granulomas. 6 mm right lower lobe solid nodule (series 4, image 22). Pleural spaces: Unremarkable. No pneumothorax. No pleural effusion. Heart: Unremarkable. No cardiomegaly. No pericardial effusion. Coronary arteries: [id number]-vr-[id number] coronary artery calcifications. Lymph nodes: Diffuse mediastinal and hilar lymphadenopathy many of which are calcified consistent with prior granulomatous disease. Liver: Hepatic and splenic granulomas. Gallbladder and biliary ducts: Status post cholecystectomy. Pancreas: Diffuse pancreatic atrophy. Bones/joints: Unremarkable. No acute fracture. Soft tissues: Unremarkable. CT/CT angio chest PE protcl 19302 IMPRESSION: 1. No pulmonary embolism. 2. Nonspecific appearance of the pulmonary parenchyma which may represent fibrotic change as this has been chronic since at least 06/13/2023. Other differential to include pulmonary edema, infectious/inflammatory etiologies. 3. Right lower lobe solid nodule measuring 6 mm. For patients at low risk (minimal or absent history of smoking and of other known risk factors), recommend CT Chest at 6-12 months, then consider CT Chest at 18-24 months. For patients at high risk (history of smoking or of other known risk factors), recommend CT Chest at 6-12 months, then CT Chest at 18-24 months. (Reference: Brett) 4. Findings of prior granulomatous disease.
[2024-06-01 10:51] LABS: Covid PCR NEGATIVE (Negative); Influenza A NEGATIVE (Negative); Influenza B NEGATIVE (Negative)
[2024-06-01] MEDS: iohexol 350 mg/mL 500 mL Btl (per mL) IV (10:58)
[2024-06-01 10:59] LABS: Respiratory Syncytial Virus Ce POSITIVE (Negative)
--- NOTE | 2024-06-01 11:24 | P.HP_ITS ---
Providers/Chief Complaint 2 Primary Care Provider: Angelo Fraga MD Chief Complaint: sob History of Present Illness Cesia Ireland is a 69 year old female with a past medical history of AV malformations in the stomach, history of GI bleed, history of iron deficiency anemia the patient presented to the hospital with shortness of breath. The patient reported taking an oxygen reading at home, which was between 69 and 72. The patient has been feeling unwell, with symptoms resembling an illness. There was a history of coughing, but it has decreased in the last day or two. The patient denies smoking and has not been around anyone sick. The patient visited a doctor on , who prescribed antibiotics and noted fluctuating low oxygen levels. The patient was advised to monitor the oxygen levels and seek medical attention if they dropped significantly. The patient denies any history of heart problems, chest discomfort, recent travel, or being told of having asthma, COPD, or other lung problems. The patient worked at [employer] in [place], specifically in [place], but was not significantly exposed to harmful materials. She does report a productive cough. No chest pain, no cardiovascular history. Review of Systems 2 Const: Reports: fatigue and malaise; Denies: fever(s) or chills Card: Denies: chest pain Resp: Reports: dyspnea GI: Denies: abdominal pain : Denies: flank pain Medications/Allergies Home Medications Medication Instructions Recorded Confirmed Last Taken Type ferrous sulfate 325 mg (65 mg 325 mg PO BID 11/22/21 06/01/24 Unknown History iron) tablet xkjpmfml-ltu-ogcja ac 400 1 tab PO DAILY 11/22/21 06/01/24 Unknown History mcg-calcium carb 500 mg-vit K1 20 mcg tablet omeprazole 40 mg capsule,delayed 40 mg PO DAILY #30 caps 06/21/23 06/01/24 05/31/24 Rx release fluticasone propionate 50 2 spray intranasal DAILY #16 grams 07/25/23 06/01/24 05/31/24 Rx mcg/actuation nasal spray,suspension (Flonase Allergy Relief) hydrocodone 5 mg-acetaminophen 325 1 tab PO BID PRN pain 30 days #60 03/25/24 06/01/24 Unknown Rx mg tablet tabs albuterol sulfate 90 mcg/actuation 2 puff inhalation Q6H PRN 04/18/24 06/01/24 Unknown Rx aerosol inhaler (Ventolin HFA) shortness of breath or wheezing #8.5 grams ciprofloxacin HCl 500 mg tablet 500 mg PO BID #20 tabs 05/30/24 06/01/24 05/31/24 Rx oseltamivir 75 mg capsule (Tamiflu) 75 mg PO BID #10 caps 05/30/24 06/01/24 Unknown Rx hydrochlorothiazide 25 mg tablet 25 mg PO DAILY 06/01/24 06/01/24 06/01/24 History methocarbamol 750 mg tablet 750 mg PO BID PRN spasm 06/01/24 06/01/24 Unknown History Allergies Allergy/AdvReac Type Severity Reaction Status Date / Time gabapentin Allergy stomach Verified 05/14/24 09:02 pain PFSH Acute 2 PFSH: Medical History Iron deficiency anemia AVM (arteriovenous malformation) of stomach, acquired Spondylosis AC (acromioclavicular) joint bone spurs Gallbladder attack Glaucoma Colonic polyp Degenerative arthritis Degenerative joint disease of spine Gastric AVM GERD (gastroesophageal reflux disease) IBS (irritable bowel syndrome) Venous insufficiency History of carcinoma Removal 01/30/2018 Hypertension Surgical History History of cholecystectomy H/O colonoscopy 11/05/2018 History of esophagogastroduodenoscopy (EGD) EGD/bipolar diathermy x3 Family History Mother , 77 CAD (coronary artery disease) Father , 73 CAD (coronary artery disease) Hypertension Grandmother Stroke Denies family history of Diabetes Clotting disorder Dementia Hyperlipidemia Psychiatric illness Chronic kidney disease (CKD) Suicide Anesthesia complication Bleeding disorder Lung disease Cancer Social History Smoking and tobacco/nicotine status: unknown if used tobacco/nicotine Second hand smoke exposure: No Alcohol intake: never Substance/Drug Use: never Marital status: Vitals/I&O/Wt Last Vital Signs Temp 98.1 F 06/01/24 08:21 Pulse 92 06/01/24 08:21 Resp 18 06/01/24 08:21 BP 156/76 06/01/24 08:21 Pulse Ox 77 L 06/01/24 08:21 O2 Del Method Room Air 06/01/24 08:21 Weight last 48 hrs Weight 106.594 kg Physical Exam 2 Const: COMMON NORMALS: no acute distress and patient oriented x3 HENMT: COMMON NORMALS: normocephalic HEAD & SCALP: normocephalic Eye: COMMON NORMALS: Equal, round and reactive pupils present and EOMs intact bilaterally Neck/C-Spine: COMMON NORMALS: no JVD Resp: COMMON NORMALS: normal respiratory effort, No retractions and No use of accessory muscles AUSCULTATION: crackles and wheezes Cardio: COMMON NORMALS: no JVD, regular rate, regular rhythm, S1 normal heart sound present and S2 normal heart sound present RATE: regular rate RHYTHM: regular rhythm HEART SOUNDS: S1 normal heart sound present and S2 normal heart sound present GI: COMMON NORMALS: Normal to inspection, nondistended, normoactive bowel sounds present, Soft to palpation, non-tender, No hepatosplenomegaly present, no masses and no bruits PALPATION: Yes Soft to palpation Extremity: COMMON NORMALS: capillary refill normal, no clubbing, cyanosis or edema, no calf tenderness and no pedal edema Neuro: COMMON NORMALS: patient oriented x3, CN's II-XII intact bilaterally and moves all extremities Psych: COMMON NORMALS: mental status grossly normal Data 06/01/24 09:21 06/01/24 09:21 Micro: Microbiology 06/01/24 09:24 Blood Culture - Preliminary Blood SPECIMEN COLLECTED 06/01/24 09:21 Blood Culture - Preliminary Blood SPECIMEN COLLECTED A&P Assessment and plan (1) AVM (arteriovenous malformation) of stomach, acquired: (2) Iron deficiency: (3) Pneumonia: (4) Hypoxia: (5) Hypertension: (6) Acute hypoxic respiratory failure: (7) Hyponatremia: Plan Acute hypoxic respiratory failure ? Likely secondary to pneumonia # Component of RSV pneumonia ? Plan ? CT imaging of the chest pending ? CRP, Pro-Chris, blood cultures, sputum cultures # Troponin series, EKG series ? Continue Rocephin, Zithromycin # Solu-Medrol 40 mg IV every 8 hours -DuoNeb -Budesonide -Monitor respiratory status closely -Full code Hyponatremia, monitor serum sodium, History of GI bleed, AV malformation Full code Protonix for GI prophylaxis SCDs for DVT prophylaxis, Lovenox relatively contraindicated given history of GI bleeds, anemia, AV malformations Attestations 2 Medical Necessity Statement*: Patient requires hospitalization for acute hypoxic respiratory failure secondary to pneumonia, RSV, inpatient, greater than 2 midnights Diagnoses AVM (arteriovenous malformation) of stomach, acquired K31.819 Iron deficiency E61.1 Pneumonia J18.9 Hypoxia R09.02 Hypertension I10 Acute hypoxic respiratory failure J96.01 Hyponatremia E87.1
[2024-06-01 12:00] LABS: NT Pro B Type Natriuretic Pept 260 pg/mL (0-125); Procalcitonin 0.17 ng/mL (0-0.5)
[2024-06-01 12:29] LABS: Troponin 5 2HR 12.47 ng/L (0-10); Troponin 5 2HR Delta -3.53 ABS# (0-10)
[2024-06-01] MEDS: ipratropium-albuterol 3 mL Neb INHALATION ×3 (13:15→21:05)
[2024-06-01 13:16] LABS: Estmated Average Glucose 111; Hemoglobin A1C 5.5 % (4.0-6.0)
[2024-06-01 13:33] LABS: Chol HDL Ratio 3.21 mg/dL (0.0-4.40); Cholesterol 109 mg/dL (0-200); HDL Cholesterol 34 mg/dL (60-100); LDL Cholesterol Calculated 55 mg/dL (50-129); LDL HDL Ratio 1.62 RATIO (0.00-3.22); Thyroid Stimulating Hormone 1.01 uIU/mL (0.27-4.20); Triglycerides 98 mg/dL (0-150)
--- NOTE | 2024-06-01 14:23 | ECG_ITS ---
[facility] Test Date: 2024-06-01 Pat Name: Cesia Ireland Department: Room: 275 Gender: Female Claims Adjustor: : 1955 Requested By: Vincenzo Peoples Order Number: [id number] Akil MD: Stephen Diana M.D. Measurements Intervals [place] Rate: 88 P: 212 GA: 97 QRS: -10 QRSD: 101 T: 60 QT: 366 QTc: 444 Interpretive Statements SINUS RHYTHM WITH SHORT GA INTERVAL Compared to ECG 06/01/2024 11:30:57 Short GA interval now present Supraventricular rhythm no longer present Electronically Signed On 06-01-2024 23:21:33 CERAMIST by Stephen Diana M.D. [id number]
[2024-06-01] MEDS: AZITHROMYCIN ADD-Vantage 500 MG in 0.9% NaCl ADD-Vantage 250 ML 250 MG IV (14:25)
[2024-06-01] MEDS: cefTRIAXone 1,000 mg SDV 1000 MG IVP (14:26)
[2024-06-01] MEDS: pantoprazole 40 mg SDV IVP (14:26)
[2024-06-01 16:39] LABS: Troponin 5 6HR 11.38 ng/L (0-10); Troponin 5 6HR Delta -4.62 ng/L (0-12)
[2024-06-01] MEDS: budesonide 0.5 mg/2 mL Neb INHALATION (21:05)
[2024-06-02] VITALS (15 sets, daily range): BP systolic 109–143; BP diastolic 60–98; PULSE 71–93; RESP 15–18; TEMP 36.6–36.8; O2SAT 2–94
[2024-06-02] MEDS: pantoprazole 40 mg SDV IVP ×2 (01:30→13:48)
[2024-06-02] MEDS: acetaminophen 325 mg Tablet 650 MG PO (01:35)
[2024-06-02 05:00] LABS: Basophils % 0.3 %; Eosinophils % 0.2 %; Hematocrit 36.2 % (36-47); Lymphocytes # 0.9 10^3/uL (0.8-4.8); Lymphocytes % 14.5 %; Mean Corpuscular HGB Conc 29.3 g/dL (30-55); Mean Corpuscular Hemoglobin 26.6 pg (27-33); Mean Platelet Volume 9.6 fL (7.4-10.4); Monocytes # 0.7 10^3/uL (0.2-0.9); Monocytes % 12.3 %; Neutrophils # 4.35 10^3/uL (1.8-7.7); Neutrophils % 72.2 %; Nucleated Red Blood Cells % 0 %; Platelet Count 219 10^3/cmm (157-399); Red Blood Count 3.98 10^6/uL (3.85-5.65); Red Cell Distribution Width 14.9 % (12.1-15.1); White Blood Count 6.02 10^3/uL (3.29-11.43)
[2024-06-02 05:27] LABS: Anion Gap 13.2 (5-19); Blood Urea Nitrogen 10 mg/dL (8-23); Calcium 8.7 mg/dL (8.5-10.5); Carbon Dioxide 31 mmol/L (22-29); Chloride 94 mmol/L (98-107); Creatinine Clr Calc Pharmacy 81.0989; Glucose 104 mg/dL (65-115); Magnesium 2.6 mg/dL (1.7-2.3); Osmolality Calculated 279 mOsm/kg (285-295); Phosphorus 4.1 mg/dL (2.5-4.5); Potassium 3.2 mmol/L (3.5-5.1); Sodium 135 mmol/L (136-145)
[2024-06-02] MEDS: methylPREDNISolone sod succ 40 mg/mL INJ IVP ×3 (06:01→22:46)
[2024-06-02] MEDS: potassium chloride ER 20 mEq Tablet 40 MEQ PO (08:39)
[2024-06-02] MEDS: hydroCHLOROthiazide 25 mg Tablet PO (08:39)
[2024-06-02] MEDS: budesonide 0.5 mg/2 mL Neb INHALATION ×2 (08:45→21:25)
[2024-06-02] MEDS: ipratropium-albuterol 3 mL Neb INHALATION ×4 (08:45→21:25)
[2024-06-02] MEDS: cefTRIAXone 1,000 mg SDV 1000 MG IVP (13:48)
[2024-06-02] MEDS: AZITHROMYCIN ADD-Vantage 500 MG in 0.9% NaCl ADD-Vantage 250 ML 20 MG IV (13:48)
--- NOTE | 2024-06-02 16:00 | P.PN_ITS ---
Subjective 2 Subjective: Patient was seen this morning, denies any fevers, no chills, continues to have a cough, continues to have shortness of breath, we discussed her CT chest findings, indicated for possible interstitial lung disease she will have to follow-up with pulmonary as outpatient, Vitals/I&O/Wt Last Vital Signs Temp 98.0 F 06/02/24 12:54 Pulse 86 06/02/24 15:08 Resp 18 06/02/24 15:01 BP 122/98 06/02/24 12:54 Pulse Ox 92 06/02/24 15:01 O2 Del Method Nasal Cannula 06/02/24 15:01 O2 Flow Rate 2 06/02/24 15:01 06/02/24 06/02/24 06/02/24 06:59 14:59 22:59 Intake Total 480 / 480 Balance 480 / 480 Weight last 48 hrs Weight 103.873 kg Weight 103.986 kg Weight 106.594 kg Physical Exam 2 Const: COMMON NORMALS: no acute distress and patient oriented x3 Resp: COMMON NORMALS: normal respiratory effort, No retractions and No use of accessory muscles AUSCULTATION: crackles and wheezes Cardio: COMMON NORMALS: regular rate, regular rhythm, S1 normal heart sound present and S2 normal heart sound present RATE: regular rate RHYTHM: r egular rhythm HEART SOUNDS: S1 normal heart sound present and S2 normal heart sound present GI: COMMON NORMALS: Normal to inspection, nondistended, normoactive bowel sounds present and non-tender Extremity: COMMON NORMALS: no pedal edema Neuro: COMMON NORMALS: patient oriented x3 Psych: COMMON NORMALS: mental status grossly normal Data 06/02/24 04:40 06/02/24 04:40 Micro: Microbiology 06/01/24 09:24 Blood Culture - Preliminary Blood NEGATIVE TO DATE 06/01/24 09:21 Blood Culture - Preliminary Blood NEGATIVE TO DATE A&P Assessment and plan (1) AVM (arteriovenous malformation) of stomach, acquired: (2) Iron deficiency: (3) Pneumonia: (4) Hypoxia: (5) Hypertension: (6) Acute hypoxic respiratory failure: (7) Hyponatremia: Plan Acute hypoxic respiratory failure ? Likely secondary to pneumonia # Component of RSV pneumonia ? Plan ? CT imaging of the chest CT/CT angio chest PE protcl [id number] IMPRESSION: 1. No pulmonary embolism. 2. Nonspecific appearance of the pulmonary parenchyma which may represent fibrotic change as this has been chronic since at least 06/13/2023. Other differential to include pulmonary edema, infectious/inflammatory etiologies. 3. Right lower lobe solid nodule measuring 6 mm. For patients at low risk (minimal or absent history of smoking and of other known risk factors), recommend CT Chest at 6-12 months, then consider CT Chest at 18-24 months. For patients at high risk (history of smoking or of other known risk factors), recommend CT Chest at 6-12 months, then CT Chest at 18-24 months. (Reference: Brett) 4. Findings of prior granulomatous disease. ? blood cultures, sputum cultures # Troponin series, EKG series ? Continue Rocephin, Zithromycin # Solu-Medrol 40 mg IV every 8 hours -DuoNeb -Budesonide -Monitor respiratory status closely -Full code Concerns for interstitial lung disease, follow-up with pulmonary as outpatient Hyponatremia, monitor serum sodium, History of GI bleed, AV malformation Full code Protonix for GI prophylaxis SCDs for DVT prophylaxis, Lovenox relatively contraindicated given history of GI bleeds, anemia, AV malformations Attestations 2 Medical Necessity Statement*: Patient requires hospitalization for acute hypoxic respiratory failure secondary pneumonia, RSV Diagnoses AVM (arteriovenous malformation) of stomach, acquired K31.819 Iron deficiency E61.1 Pneumonia J18.9 Hypoxia R09.02 Hypertension I10 Acute hypoxic respiratory failure J96.01 Hyponatremia E87.1
[2024-06-03] VITALS (8 sets, daily range): BP systolic 114–159; BP diastolic 63–83; PULSE 20–95; RESP 16–18; TEMP 36.6–36.8; O2SAT 87–97
[2024-06-03] MEDS: pantoprazole 40 mg SDV IVP (01:00)
[2024-06-03 05:31] LABS: Hematocrit 37.4 % (36-47); Lymphocytes # 0.5 10^3/uL (0.8-4.8); Lymphocytes % 9.5 %; Mean Corpuscular HGB Conc 29.1 g/dL (30-55); Mean Corpuscular Hemoglobin 27.3 pg (27-33); Mean Corpuscular Volume 93.7 fl (85-98); Mean Platelet Volume 9.8 fL (7.4-10.4); Monocytes # 0.3 10^3/uL (0.2-0.9); Monocytes % 6.1 %; Nucleated Red Blood Cells % 0 %; Platelet Count 234 10^3/cmm (157-399); Red Blood Count 3.99 10^6/uL (3.85-5.65); Red Cell Distribution Width 15.1 % (12.1-15.1); White Blood Count 5.24 10^3/uL (3.29-11.43)
[2024-06-03 05:39] LABS: Slide Review Slide Review Perform
[2024-06-03 05:50] LABS: Anion Gap 12.4 (5-19); Blood Urea Nitrogen 13 mg/dL (8-23); Calcium 8.8 mg/dL (8.5-10.5); Carbon Dioxide 33 mmol/L (22-29); Chloride 96 mmol/L (98-107); Creatinine Clr Calc Pharmacy 81.0989; Glucose 136 mg/dL (65-115); Magnesium 2.6 mg/dL (1.7-2.3); Osmolality Calculated 286 mOsm/kg (285-295); Phosphorus 4.4 mg/dL (2.5-4.5); Potassium 4.4 mmol/L (3.5-5.1); Sodium 137 mmol/L (136-145)
[2024-06-03] MEDS: methylPREDNISolone sod succ 40 mg/mL INJ IVP (06:07)
[2024-06-03] MEDS: budesonide 0.5 mg/2 mL Neb INHALATION (08:29)
[2024-06-03] MEDS: ipratropium-albuterol 3 mL Neb INHALATION ×2 (08:29→11:34)
[2024-06-03] MEDS: hydroCHLOROthiazide 25 mg Tablet PO (10:45)
--- NOTE | 2024-06-03 11:14 | PM.DCS ---
Discharge Providers Date of Admission: 06/01/24 11:08 Date of Discharge: June 03, 2024 Attending Provider at Admission: Yefri Robert MD Attending Provider at Discharge: Yefri Robert MD Primary Care Provider: Angelo Fraga MD Diagnoses at Discharge Discharge Diagnosis (1) AVM (arteriovenous malformation) of stomach, acquired: Status: Acute (2) Iron deficiency: Status: Acute (3) Pneumonia: Status: Resolved (4) Hypoxia: Status: Resolved (5) Hypertension: Status: Acute (6) Acute hypoxic respiratory failure: Status: Resolved (7) Hyponatremia: Status: Resolved Reason for Visit Reason for Visit: sob Hospital Course Hospital Course Cesia Ireland is a 69 year old female with a past medical history of AV malformations in the stomach, history of GI bleed, history of iron deficiency anemia the patient presented to the hospital with shortness of breath. The patient reported taking an oxygen reading at home, which was between 69 and 72. The patient has been feeling unwell, with symptoms resembling an illness. There was a history of coughing, but it has decreased in the last day or two. The patient denies smoking and has not been around anyone sick. The patient visited a doctor on , who prescribed antibiotics and noted fluctuating low oxygen levels. The patient was advised to monitor the oxygen levels and seek medical attention if they dropped significantly. The patient denies any history of heart problems, chest discomfort, recent travel, or being told of having asthma, COPD, or other lung problems. The patient worked at [employer] in [place], specifically in [employer], but was not significantly exposed to harmful materials. She does report a productive cough. No chest pain, no cardiovascular history. Patient was admitted to [facility] for acute hypoxic respiratory failure secondary to RSV pneumonia, received steroid therapy, overall clinically improved. She will be discharged on oxygen therapy, steroid therapy with close follow-up with pulmonary as outpatient. Physical Exam Const: COMMON NORMALS: no acute distress and patient oriented x3 Resp: COMMON NORMALS: normal respiratory effort, No retractions, No use of accessory muscles and clear to auscultation bilaterally AUSCULTATION: clear to auscultation bilaterally Cardio: COMMON NORMALS: regular rate, regular rhythm, S1 normal heart sound present and S2 normal heart sound present RATE: regular rate RHYTHM: regular rhythm HEART SOUNDS: S1 normal heart sound present and S2 normal heart sound present GI: COMMON NORMALS: Normal to inspection, nondistended, normoactive bowel sounds present and non-tender Extremity: COMMON NORMALS: no pedal edema Neuro: COMMON NORMALS: patient oriented x3 Psych: COMMON NORMALS: mental status grossly normal Discharge Data Studies Completed and Pending Completed Studies During Hospitalization Category Date Time Status CT angio chest PE protcl [id number] Stat Cat Scan 06/01/24 10:26 Completed XR chest 1V portable [id number] Stat Exams 06/01/24 08:23 Completed Pending at discharge Category Date Time Status Basic Metabolic Panel AM LABS Lab 06/04/24 04:00 Ordered Blood Culture Stat Lab 06/01/24 09:24 Results Complete Blood Count w/Auto AM LABS Lab 06/04/24 04:00 Ordered Magnesium AM LABS Lab 06/04/24 04:00 Ordered Phosphorus AM LABS Lab 06/04/24 04:00 Ordered Sputum Culture and Gram Stain Stat Lab 06/01/24 14:20 Results Radiology Impressions Chest X-Ray 06/01/24 08:23 IMPRESSION: Findings which may be suggestive of interstitial lung disease. Consider high-resolution chest CT for further evaluation. Chest CTA 06/01/24 10:26 IMPRESSION: 1. No pulmonary embolism. 2. Nonspecific appearance of the pulmonary parenchyma which may represent fibrotic change as this has been chronic since at least 06/13/2023. Other differential to include pulmonary edema, infectious/inflammatory etiologies. 3. Right lower lobe solid nodule measuring 6 mm. For patients at low risk (minimal or absent history of smoking and of other known risk factors), recommend CT Chest at 6-12 months, then consider CT Chest at 18-24 months. For patients at high risk (history of smoking or of other known risk factors), recommend CT Chest at 6-12 months, then CT Chest at 18-24 months. (Reference: Brett) 4. Findings of prior granulomatous disease. Laboratory Results WBC 5.24 10^3/uL (3.29-11.43) 06/03/24 05:02 RBC 3.99 10^6/uL (3.85-5.65) 06/03/24 05:02 Hgb 10.90 g/dL (11.27-16.99) L 06/03/24 05:02 Hct 37.4 % (36-47) 06/03/24 05:02 MCV 93.7 fl (85-98) 06/03/24 05:02 MCH 27.3 pg (27-33) 06/03/24 05:02 MCHC 29.1 g/dL (30-55) L 06/03/24 05:02 RDW 15.1 % (12.1-15.1) 06/03/24 05:02 Plt Count 234 10^3/cmm (157-399) 06/03/24 05:02 MPV 9.8 fL (7.4-10.4) 06/03/24 05:02 Neut % (Auto) 84.0 % 06/03/24 05:02 Lymph % (Auto) 9.5 % 06/03/24 05:02 [place] % (Auto) 6.1 % 06/03/24 05:02 Eos % (Auto) 0.0 % 06/03/24 05:02 Baso % (Auto) 0.0 % 06/03/24 05:02 Neut # (Auto) 4.40 10^3/uL (1.8-7.7) 06/03/24 05:02 Lymph # (Auto) 0.5 10^3/uL (0.8-4.8) L 06/03/24 05:02 [place] # (Auto) 0.3 10^3/uL (0.2-0.9) 06/03/24 05:02 Eos # (Auto) 0.0 10^3/uL (0.0-0.8) 06/03/24 05:02 Baso # (Auto) 0.0 10^3/uL (0.0-0.1) 06/03/24 05:02 Nucleated RBC % (auto) 0 % 06/03/24 05:02 Nucleated RBCs # 0.0 /100WBC 06/03/24 05:02 Specimen Type Arterial 06/01/24 09:28 Sample Site Radial, right 06/01/24 09:28 ABG pH 7.46 (7.35-7.45) H 06/01/24 09:28 ABG pCO2 45.3 mmHg (35-45) H 06/01/24 09:28 ABG pO2 60.4 mmHg (80.0-100.0) L 06/01/24 09:28 ABG PO2/FiO2 Ratio 215 06/01/24 09:28 ABG HCO3 32.5 mmol/L (22-26) H 06/01/24 09:28 ABG O2 Saturation 91.6 06/01/24 09:28 ABG Base Excess 7.8 mmol/L (-2.0-2.0) H 06/01/24 09:28 Tre Test Pos 06/01/24 09:28 A-a O2 Gradient 11.1 mmHg (5-10) H 06/01/24 09:28 Hematocrit 34.9 % (37-47) L 06/01/24 09:28 Hgb O2 Saturation 89.8 % (95-100) L 06/01/24 09:28 Carboxyhemoglobin 1.9 %THgb (0.4-20.1) 06/01/24 09: Methemoglobin 0.1 % (0.4-1.5) L 06/01/24 09:28 Total Hemoglobin 11.4 g/dL (12-16) L 06/01/24 09:28 Sodium 130.0 mmol/L (131-143) L 06/01/24 09:28 Potassium 3.2 mmol/L (3.5-5.0) L 06/01/24 09:28 Glucose 117.0 mg/dL (70-115) H 06/01/24 09:28 Ionized Calcium 1.1 mmol/L (1.1-1.4) 06/01/24 09:28 O2 Delivery Device Nc 06/01/24 09:28 O2 Liters/Min 2.0 % 06/01/24 09:28 FiO2 28.0 % 06/01/24 09:28 Paper Twister Tender ID [place] 06/01/24 09:28 Sodium 137 mmol/L (136-145) 06/03/24 05:02 Potassium 4.4 mmol/L (3.5-5.1) 06/03/24 05:02 Chloride 96 mmol/L (98-107) L 06/03/24 05:02 Carbon Dioxide 33 mmol/L (22-29) H 06/03/24 05:02 Anion Gap 12.4 (5-19) 06/03/24 05:02 BUN 13 mg/dL (8-23) 06/03/24 05:02 Creatinine 0.5 mg/dL (0.5-0.9) 06/03/24 05:02 GFR Calculation 122.0 mL/min (90-130) 06/03/24 05:02 Glucose 136 mg/dL (65-115) H 06/03/24 05:02 Estimat Average Glucose 111 06/01/24 09:21 Hemoglobin A1c 5.5 % (4.0-6.0) 06/01/24 09:21 Calculated Osmolality 286 mOsm/kg (285-295) 06/03/24 05:02 Calcium 8.8 mg/dL (8.5-10.5) 06/03/24 05:02 Phosphorus 4.4 mg/dL (2.5-4.5) 06/03/24 05:02 Magnesium 2.6 mg/dL (1.7-2.3) H 06/03/24 05:02 Total Bilirubin 0.3 mg/dL (0.15-1.2) 06/01/24 09:21 AST 28 U/L (0-32) 06/01/24 09:21 ALT 20 U/L (0-33) 06/01/24 09:21 Alkaline Phosphatase 70 U/L (35-105) 06/01/24 09:21 Troponin T Baseline 16 ng/L (0-10) H 06/01/24 09:21 Troponin T 120 Minute 12.47 ng/L (0-10) H 06/01/24 12:06 Delta Troponin T -3.53 ABS# (0-10) L 06/01/24 12:06 Troponin T Hi Sens 6Hr 11.38 ng/L (0-10) H 06/01/24 16:14 Troponin T Hi Sens 6Hr Delta -4.62 ng/L (0-12) L 06/01/24 16:14 NT-Pro-B Natriuret Pep 260 pg/mL (0-125) H 06/01/24 09:21 Total Protein 7.0 g/dL (6.6-8.7) 06/01/24 09:21 Albumin 3.6 g/dL (3.5-5.2) 06/01/24 09:21 Globulin 3.4 g/dL (1.3-4.6) 06/01/24 09:21 Triglycerides 98 mg/dL (0-150) 06/01/24 09:21 Cholesterol 109 mg/dL (0-200) 06/01/24 09:21 LDL Cholesterol, Calc 55 mg/dL (50-129) 06/01/24 09:21 HDL Cholesterol 34 mg/dL (60-100) L 06/01/24 09:21 LDL/HDL Ratio 1.62 RATIO (0.00-3.22) 06/01/24 09:21 Cholesterol/HDL Ratio 3.21 mg/dL (0.0-4.40) 06/01/24 09:21 Procalcitonin 0.17 ng/mL (0-0.5) 06/01/24 09:21 TSH 1.01 uIU/mL (0.27-4.20) 06/01/24 09:21 Urine Color Yellow (Yellow) 06/01/24 09:48 Urine Appearance Clear (CLEAR) 06/01/24 09:48 Urine pH 7.0 (5-7) 06/01/24 09:48 Ur Specific Arab[place] 1.009 (1.005-1.030) 06/01/24 09:48 Urine Protein Negative (Negative) 06/01/24 09:48 Urine Glucose (UA) Negative (Normal) 06/01/24 09:48 Urine Ketones Negative (Negative) 06/01/24 09:48 Urine Blood Negative (Negative) 06/01/24 09:48 Urine Nitrate Negative (Negative) 06/01/24 09:48 Urine Bilirubin Negative (Negative) 06/01/24 09:48 Urine Urobilinogen 0.2 mg/dL (Negative) 06/01/24 09:48 Ur Leukocyte Esterase Negative (Negative) 06/01/24 09:48 Urine RBC 0-2 /hpf (0-2) 06/01/24 09:48 Urine WBC 0-5 /hpf (0-5) 06/01/24 09:48 Ur Squamous Epith Cells 0-5 /hpf (0-5) 06/01/24 09:48 Amorphous Sediment Not Reportable 06/01/24 09:48 Urine Bacteria None seen /hpf (NONE) 06/01/24 09:48 Hyaline Casts 0-4 /lpf H 06/01/24 09:48 Coronavirus (PCR) Negative (Negative) 06/01/24 09:57 Influenza A (PCR) Negative (Negative) 06/01/24 09:57 Influenza Type B (PCR) Negative (Negative) 06/01/24 09:57 RSV (PCR) Positive (Negative) A 06/01/24 09:57 Vitals Last Vital Signs Temp 98.2 F 06/03/24 11:09 Pulse 95 06/03/24 11:09 Resp 18 06/03/24 11:09 BP 142/83 06/03/24 11:09 Pulse Ox 94 06/03/24 11:09 O2 Del Method Nasal Cannula 06/03/24 11:09 O2 Flow Rate 2 06/03/24 08:29 Discharge Plan Discharge Patient Disposition: Home Condition: Stable Prescriptions: New fluticasone propion-salmeterol [Advair Diskus] 100-50 mcg/dose blister with device 1 inh inhalation BID Qty: 60 0RF prednisone 10 mg tablet 10 mg PO DIRECTED Qty: 53 0RF Rx Instructions: 4 tabs a day for 5 days, 3 tabs for 5 days, 2 tabs for 5 days, 1 tab for 5 days, 0.5 tabs for 5 days Continued ft-obk-bxbvo-calcium carb-K1 400 mcg-500 mg calcium-20 mcg tablet 1 tab PO DAILY ferrous sulfate 325 mg (65 mg iron) tablet 325 mg PO BID fluticasone propionate [Flonase Allergy Relief] 50 mcg/actuation spray,suspension 2 spray intranasal DAILY Qty: 16 11RF Rx Instructions: administer into each nostril omeprazole 40 mg capsule,delayed release(DR/EC) 40 mg PO DAILY Qty: 30 11RF hydrocodone-acetaminophen 5-325 mg tablet 1 tab PO BID PRN (Reason: pain) 30 Days Qty: 60 0RF methocarbamol 750 mg tablet 750 mg PO BID PRN (Reason: spasm ) hydrochlorothiazide 25 mg tablet 25 mg PO DAILY albuterol sulfate [Ventolin HFA] 90 mcg/actuation HFA aerosol inhaler 2 puff inhalation Q6H PRN (Reason: shortness of breath or wheezing) 30 Days Qty: 8.5 0RF Discontinued ciprofloxacin HCl 500 mg tablet 500 mg PO BID Qty: 20 0RF oseltamivir [Tamiflu] 75 mg capsule 75 mg PO BID Qty: 10 0RF Discharge Orders: Discharge Order (Routine); Ordered 06/03/24 Ordered By: Yefri Robert Other Ambulatory Orders: DME: Oxygen (Order) Location: None Selected Ordered By: Yefri Robert Referrals: [facility] [place] [facility] [place]] Zana Crawley MD [Referring] - 1 week (ILD< pulmonary fibrosis We have notified your physician's clinic of the need for a follow-up appointment to be scheduled. If you have not heard from them within the next 2 business days, please call them directly. ) Angelo Fraga MD [Primary Care Provider] - 06/06/24 1:30 pm () Discharge Diet: Cardiac Discharge Activity: Resume usual activity Patient Instructions: Doxycycline (By mouth), Prednisone (By mouth), Fluticasone/Salmeterol (By breathing) (Advair Diskus 100/50, Advair..., Hypoxia (ED), RSV (Respiratory Syncytial Virus) Infection (DC), Opioid Safety Activity Restrictions/Additional Instructions: - For your pulmonary nodule, and your CT scan findings concerning for interstitial lung disease please follow-up with pulmonary in [facility] in 4 weeks -Please take antibiotics and steroids as prescribed -Albuterol as needed for shortness of breath -Advair twice daily -Please have your primary care provider see you within a week Discharge Attestations Time Spent in Discharge Care*: greater than 30 min Quality Metrics Clinical Quality Measures [ No reported AMI, CVA or VTE this stay] Coding Level of Care Code 23228 Total time (in minutes) for Discharge: 45 Diagnoses AVM (arteriovenous malformation) of stomach, acquired K31.819 Iron deficiency E61.1 Pneumonia J18.9 Hypoxia R09.02 Hypertension I10 Acute hypoxic respiratory failure J96.01 Hyponatremia E87.1
--- NOTE | 2024-06-03 13:18 | PC.SOCIAL ---
Home O2 eval Pt has d/c orders in to go home. She had a home O2 eval done & qualified for 3lnc. Pt said she was okay with using HOME. A choice letter placed in chart. Faxed O2 orders, notes, & eval to HOME. Notified [facility] via webex. No other needs noted for CM.
--- NOTE | 2024-06-03 13:24 | PC.SOCIAL ---
IMM Updated Updated pt on IMM. No questions voiced. Provided pt a copy. Initialed, dated, & timed a copy & placed in chart.
== END 2024-06-03 14:40 | disposition home or self-care (01) | DRG 193 ==
LOC: ER 11:39 → MEDSURG 11:56
PROVIDERS: Admitting Provider Family Medicine; Emergency Provider Family Medicine; PCP Family Medicine; Visit Provider Family Medicine
DX: J12.1 Respiratory syncytial virus pneumonia (principal); J96.01 Acute respiratory failure with hypoxia; E87.1 Hypo-osmolality and hyponatremia; K55.20 Angiodysplasia of colon without hemorrhage; D50.9 Iron deficiency anemia, unspecified; I10 Essential (primary) hypertension; Z79.891 Long term (current) use of opiate analgesic; H40.9 Unspecified glaucoma; Z86.018 Personal history of other benign neoplasm; K21.9 Gastro-esophageal reflux disease without esophagitis; K58.9 Irritable bowel syndrome, unspecified; Z90.49 Acquired absence of other specified parts of digestive tract
CPT/HCPCS: 36415; 36600; 71045; 71275; 80048; 80051; 80053; 80061; 81001; 82330; 82805; 83036; 83735; 83880; 84100; 84145; 84443; 84484; 85025; 87040; 87070; 87205; 87637; 93005; 94640; 94664; 94760; 96365; 96372; 99285; J0456; J0696; J1100; J2470; J2543; J2919; J7050; J7626

== ENCOUNTER 2024-07-30 07:11 | Outpatient (CLI) | payer MEDICARE, BC, SELFPAY ==
[2024-07-30 07:34] VITALS: PULSE 90; RESP 18; O2SAT 95
[2024-07-30] MEDS: albuterol 2.5 mg/3 mL Neb INHALATION (07:34)
[2024-07-30 07:39] VITALS: PULSE 93
== END 2024-07-30 07:12 | disposition home or self-care (01) ==
LOC: RT 07:12
PROVIDERS: PCP Family Medicine; Visit Provider Family Medicine
DX: R06.00 Dyspnea, unspecified (principal); R94.2 Abnormal results of pulmonary function studies
CPT/HCPCS: 94060; 94726; 94729; J7613

== ENCOUNTER 2024-08-19 09:00 | Oncology outpatient (recurring) (ONCR) | payer MEDICARE, BC, SELFPAY ==
[2024-08-12 12:41] LABS: Basophils # 0.1 10^3/uL (0.0-0.1); Basophils % 0.7 %; Eosinophils # 0.3 10^3/uL (0.0-0.8); Hematocrit 35.6 % (36-47); Lymphocytes # 1.2 10^3/uL (0.8-4.8); Lymphocytes % 15.7 %; Mean Corpuscular HGB Conc 30.3 g/dL (30-55); Mean Corpuscular Hemoglobin 27.3 pg (27-33); Mean Corpuscular Volume 89.9 fl (85-98); Mean Platelet Volume 10.8 fL (7.4-10.4); Monocytes # 0.6 10^3/uL (0.2-0.9); Monocytes % 8.1 %; Neutrophils # 5.38 10^3/uL (1.8-7.7); Nucleated Red Blood Cells % 0 %; Platelet Count 188 10^3/cmm (157-399); Red Blood Count 3.96 10^6/uL (3.85-5.65); Red Cell Distribution Width 15.7 % (12.1-15.1); White Blood Count 7.57 10^3/uL (3.29-11.43)
[2024-08-12 13:06] LABS: Alanine Aminotransferase 18 U/L (0-33); Albumin Level 3.9 g/dL (3.5-5.2); Alkaline Phosphatase 59 U/L (35-105); Anion Gap 13.7 (5-19); Aspartate Amino Transferase 19 U/L (0-32); Blood Urea Nitrogen 13 mg/dL (8-23); Carbon Dioxide 29 mmol/L (22-29); Chloride 100 mmol/L (98-107); Creatinine Clr Calc Pharmacy 83.3479; Ferritin 11 ng/mL (15-150); Globulin 3.3 g/dL (1.3-4.6); Glomerular Filtration Rate 98.8 mL/min (90-130); Glucose 95 mg/dL (65-115); Iron 23 ug/dL (37-145); Osmolality Calculated 288 mOsm/kg (285-295); Percent Saturation 6.1 % (20-50); Potassium 3.7 mmol/L (3.5-5.1); Sodium 139 mmol/L (136-145); Total Bilirubin 0.4 mg/dL (0.15-1.2); Total Iron Binding Capacity 375 mcg/dl; Total Protein 7.2 g/dL (6.6-8.7); Unsaturated Iron Binding 352 ug/dL (112-347)
[2024-08-12 13:19] LABS: Vitamin B12 484 pg/mL (232-1245)
[2024-08-19 09:09] VITALS: BP 152/69; PULSE 77; RESP 18; TEMP 36.8; O2SAT 96
[2024-08-19] MEDS: ferric derisomaltose 1,000 MG in sodium chloride 0.9% (100 ml) 100 ML 330 MG IV (09:25)
[2024-08-19 09:50] VITALS: BP 127/74; PULSE 67; RESP 16; TEMP 36.5; O2SAT 96
== END 2024-09-04 23:59 | disposition home or self-care (01) ==
PROVIDERS: PCP Family Medicine; Visit Provider Internal Medicine Medical Oncology
DX: Z53.9 Procedure and treatment not carried out, unspecified reason; D50.9 Iron deficiency anemia, unspecified; Z79.899 Other long term (current) drug therapy
CPT/HCPCS: 36415; 80053; 82607; 82728; 82746; 83540; 83550; 85025; 96365; 99214; J1437

== ENCOUNTER 2024-10-17 09:07 | Outpatient (CLI) | payer MEDICARE, BC, SELFPAY ==
--- NOTE | 2024-10-17 09:09 | MM_ITS ---
WS: [id number] BILATERAL 3D TOMOSYNTHESIS DIGITAL SCREENING MAMMOGRAPHY WITH CAD CLINICAL INFORMATION: SCREENING HISTORY: Screening mammogram. No current complaints. COMPARISON: 2023 TECHNIQUE: Bilateral CC and MLO views. FINDINGS: Scattered fibroglandular densities bilaterally. No suspicious focal mass, asymmetry, calcifications, or architectural distortion. No evidence of malignancy. Long-term stability nodular densities anterior LEFT breast. MM/MM scr tomosynthesis [id number] IMPRESSION: DENSITY: There are scattered areas of fibroglandular density. BI-RADS: 2 - Benign. FOLLOW UP: 1 Year Follow-up Recommend return to annual screening mammography.
--- NOTE | 2024-10-17 10:00 | CTR_ITS ---
PROCEDURE INFORMATION: Exam: CT Chest Without Contrast; Diagnostic Exam date and time: 10/17/2024 9:47 AM Age: 69 years old Clinical indication: Cough x several weeks TECHNIQUE: Imaging protocol: Diagnostic computed tomography of the chest without contrast. Radiation optimization: All CT scans at this facility use at least one of these dose optimization techniques: automated exposure control; mA and/or kV adjustment per patient size (includes targeted exams where dose is matched to clinical indication); or iterative reconstruction. COMPARISON: CT angio chest PE protcl [id number] 06/01/2024 10:52 AM RADIATION DOSE METRICS: Total DLP (mGy-cm): 590.19 FINDINGS: Lungs: Emphysematous COPD. Marked scattered parenchymal fibrosis. This includes insert lobar, interlobular, and ground-glass opacities bilaterally. Stable scattered pulmonary nodules. The largest is in the subpleural right mid lung (4:23). This is unchanged. Pleural spaces: Unremarkable. No pneumothorax. No pleural effusion. Heart: Unremarkable. No cardiomegaly. No pericardial effusion. Lymph nodes: Unremarkable. No enlarged lymph nodes. Vasculature: Unremarkable. No aortic aneurysm. Bones/joints: Unremarkable. No acute fracture. Soft tissues: Unremarkable. CT/CT chest wo con [id number] IMPRESSION: No significant interval change. Stable findings include severe parenchymal fibrosis as well as stable pulmonary nodules. For patients at low risk (minimal or absent history of smoking and of other known risk factors), recommend CT Chest at 3-6 months, then consider CT Chest at 18-24 months. For patients at high risk (history of smoking or of other known risk factors), recommend CT Chest at 3-6 months, then CT Chest at 18-24 months. (Reference: Brett) References: Brett Yancey et al. Guidelines for Management of Incidental Pulmonary Nodules Detected on CT Images: From the Fleischner Society 2017. Radiology. 2017;284(1):228-243. COMMENTS: The presence of pulmonary emphysema on CT is an independent risk factor for lung cancer. In the absence of a history or active diagnosis of lung cancer, it is recommended that this patient with emphysema be evaluated for enrollment in a low dose CT lung cancer screening program.
== END 2024-10-17 09:08 | disposition home or self-care (01) ==
LOC: RAD 09:08
PROVIDERS: PCP Family Medicine; Visit Provider Family Medicine
DX: Z12.31 Encounter for screening mammogram for malignant neoplasm of breast (principal); J84.10 Pulmonary fibrosis, unspecified; R92.323 Mammographic fibroglandular density, bilateral breasts; N64.89 Other specified disorders of breast; R91.8 Other nonspecific abnormal finding of lung field; J44.9 Chronic obstructive pulmonary disease, unspecified
CPT/HCPCS: 71250; 77063; 77067

== ENCOUNTER 2024-11-14 14:27 | Oncology outpatient (recurring) (ONCR) | payer MEDICARE, BC, SELFPAY ==
[2024-11-11 11:41] LABS: Hematocrit 36.7 % (36-47); Hemoglobin 11.60 g/dL (11.27-16.99); Mean Corpuscular HGB Conc 31.6 g/dL (30-55); Mean Corpuscular Hemoglobin 28.9 pg (27-33); Mean Corpuscular Volume 91.5 fl (85-98); Nucleated Red Blood Cells % 0 %; Platelet Count 180 10^3/cmm (157-399); Red Blood Count 4.01 10^6/uL (3.85-5.65); White Blood Count 6.98 10^3/uL (3.29-11.43)
[2024-11-11 11:57] LABS: Alanine Aminotransferase 22 U/L (0-33); Albumin Level 3.8 g/dL (3.5-5.2); Alkaline Phosphatase 65 U/L (35-105); Anion Gap 15.8 (5-19); Aspartate Amino Transferase 19 U/L (0-32); Blood Urea Nitrogen 12 mg/dL (8-23); Calcium 9.2 mg/dL (8.5-10.5); Carbon Dioxide 28 mmol/L (22-29); Chloride 97 mmol/L (98-107); Ferritin 11 ng/mL (15-150); Globulin 3.6 g/dL (1.3-4.6); Glucose 100 mg/dL (65-115); Iron 25 ug/dL (37-145); Osmolality Calculated 284 mOsm/kg (285-295); Potassium 3.8 mmol/L (3.5-5.1); Sodium 137 mmol/L (136-145); Total Iron Binding Capacity 351 mcg/dl; Total Protein 7.4 g/dL (6.6-8.7); Unsaturated Iron Binding 326 ug/dL (112-347)
[2024-11-11 12:12] LABS: Vitamin B12 526 pg/mL (232-1245)
[2024-11-14 15:34] VITALS: BP 132/74; PULSE 77; RESP 20; TEMP 36.6; O2SAT 98
[2024-11-14] MEDS: ferric derisomaltose 1,000 MG in sodium chloride 0.9% (100 ml) 100 ML 330 MG IV (15:34)
== END 2024-12-05 23:59 | disposition home or self-care (01) ==
PROVIDERS: PCP Family Medicine; Visit Provider Internal Medicine Medical Oncology
DX: E61.1 Iron deficiency (principal); Z79.899 Other long term (current) drug therapy
CPT/HCPCS: 36415; 80053; 82607; 82728; 82746; 83540; 83550; 85025; 96365; 99213; J1437

== ENCOUNTER 2024-12-04 09:52 | Outpatient (CLI) | payer MEDICARE, BC, SELFPAY ==
[2024-12-04 10:13] VITALS: PULSE 87; RESP 18; O2SAT 98
== END 2024-12-04 09:53 | disposition home or self-care (01) ==
LOC: RT 09:54
PROVIDERS: PCP Family Medicine; Visit Provider Internal Medicine
DX: J84.9 Interstitial pulmonary disease, unspecified (principal); J96.11 Chronic respiratory failure with hypoxia
CPT/HCPCS: 94060; 94726; 94729; J7613

== ENCOUNTER 2024-12-23 15:05 | Oncology outpatient (recurring) (ONCR) | payer MEDICARE, BC, SELFPAY ==
[2024-12-23 15:29] LABS: Hematocrit 37.6 % (36-47); Hemoglobin 11.90 g/dL (11.27-16.99); Mean Corpuscular HGB Conc 31.6 g/dL (30-55); Mean Corpuscular Hemoglobin 29.5 pg (27-33); Mean Corpuscular Volume 93.3 fl (85-98); Nucleated Red Blood Cells % 0 %; Platelet Count 192 10^3/cmm (157-399); Red Blood Count 4.03 10^6/uL (3.85-5.65); White Blood Count 7.52 10^3/uL (3.29-11.43)
[2024-12-23 15:50] LABS: Alanine Aminotransferase 23 U/L (0-33); Albumin Level 3.9 g/dL (3.5-5.2); Alkaline Phosphatase 62 U/L (35-105); Aspartate Amino Transferase 19 U/L (0-32); Blood Urea Nitrogen 18 mg/dL (8-23); Calcium 8.9 mg/dL (8.5-10.5); Carbon Dioxide 30 mmol/L (22-29); Chloride 97 mmol/L (98-107); Ferritin 38 ng/mL (15-150); Globulin 3.3 g/dL (1.3-4.6); Glucose 121 mg/dL (65-115); Iron 64 ug/dL (37-145); Osmolality Calculated 283 mOsm/kg (285-295); Sodium 135 mmol/L (136-145); Total Iron Binding Capacity 286 mcg/dl; Total Protein 7.2 g/dL (6.6-8.7); Unsaturated Iron Binding 222 ug/dL (112-347)
[2024-12-23 15:52] LABS: Anion Gap 11.7 (5-19); Potassium 3.7 mmol/L (3.5-5.1)
[2024-12-23 16:03] LABS: Vitamin B12 460 pg/mL (232-1245)
== END 2025-01-05 23:59 | disposition home or self-care (01) ==
PROVIDERS: PCP Family Medicine; Visit Provider Internal Medicine Medical Oncology
DX: E61.1 Iron deficiency (principal)
CPT/HCPCS: 36415; 80053; 82607; 82728; 82746; 83540; 83550; 85025

== ENCOUNTER 2025-02-27 12:00 | Oncology outpatient (recurring) (ONCR) | payer MEDICARE, BC, SELFPAY ==
[2025-02-24 12:40] LABS: Hematocrit 31.9 % (36-47); Hemoglobin 9.70 g/dL (11.27-16.99); Mean Corpuscular HGB Conc 30.4 g/dL (30-55); Mean Corpuscular Hemoglobin 26.8 pg (27-33); Mean Corpuscular Volume 88.1 fl (85-98); Nucleated Red Blood Cells % 0 %; Platelet Count 197 10^3/cmm (157-399); Red Blood Count 3.62 10^6/uL (3.85-5.65); White Blood Count 7.97 10^3/uL (3.29-11.43)
[2025-02-24 13:07] LABS: Alanine Aminotransferase 21 U/L (0-33); Albumin Level 4.0 g/dL (3.5-5.2); Alkaline Phosphatase 69 U/L (35-105); Anion Gap 13.4 (5-19); Aspartate Amino Transferase 25 U/L (0-32); Blood Urea Nitrogen 14 mg/dL (8-23); Calcium 8.9 mg/dL (8.5-10.5); Carbon Dioxide 30 mmol/L (22-29); Chloride 99 mmol/L (98-107); Creatinine Clr Calc Pharmacy 84.0047; Globulin 2.9 g/dL (1.3-4.6); Glucose 97 mg/dL (65-115); Osmolality Calculated 286 mOsm/kg (285-295); Potassium 4.4 mmol/L (3.5-5.1); Sodium 138 mmol/L (136-145); Total Protein 6.9 g/dL (6.6-8.7)
[2025-02-24 13:29] LABS: Ferritin 11 ng/mL (15-150); Iron 22 ug/dL (37-145); Total Iron Binding Capacity 334 mcg/dl; Unsaturated Iron Binding 312 ug/dL (112-347)
[2025-02-27 12:27] VITALS: BP 154/75; PULSE 77; RESP 18; TEMP 36.8; O2SAT 96
[2025-02-27] MEDS: ferric derisomaltose 1,000 MG in sodium chloride 0.9% (100 ml) 100 ML 330 MG IV (12:50)
== END 2025-03-07 23:59 | disposition home or self-care (01) ==
PROVIDERS: Nurse Practitioner; PCP Family Medicine; Visit Provider Internal Medicine Medical Oncology
DX: D50.9 Iron deficiency anemia, unspecified; Z79.899 Other long term (current) drug therapy; Z53.9 Procedure and treatment not carried out, unspecified reason
CPT/HCPCS: 36415; 80053; 82728; 83540; 83550; 85025; 96365; 99213; J1437

== ENCOUNTER 2025-04-14 11:31 | Oncology outpatient (recurring) (ONCR) | payer MEDICARE, BC, SELFPAY ==
[2025-04-14 11:50] LABS: Hematocrit 34.8 % (36-47); Hemoglobin 10.80 g/dL (11.27-16.99); Mean Corpuscular HGB Conc 31.0 g/dL (30-55); Mean Corpuscular Hemoglobin 28.5 pg (27-33); Mean Corpuscular Volume 91.8 fl (85-98); Nucleated Red Blood Cells % 0 %; Platelet Count 182 10^3/cmm (157-399); Red Blood Count 3.79 10^6/uL (3.85-5.65); White Blood Count 7.79 10^3/uL (3.29-11.43)
[2025-04-14 12:13] LABS: Alanine Aminotransferase 18 U/L (0-33); Albumin Level 4.0 g/dL (3.5-5.2); Alkaline Phosphatase 69 U/L (35-105); Anion Gap 10.9 (5-19); Aspartate Amino Transferase 20 U/L (0-32); Blood Urea Nitrogen 13 mg/dL (8-23); Calcium 8.9 mg/dL (8.5-10.5); Carbon Dioxide 32 mmol/L (22-29); Chloride 94 mmol/L (98-107); Globulin 3.2 g/dL (1.3-4.6); Glucose 106 mg/dL (65-115); Osmolality Calculated 277 mOsm/kg (285-295); Potassium 3.9 mmol/L (3.5-5.1); Sodium 133 mmol/L (136-145); Total Protein 7.2 g/dL (6.6-8.7)
[2025-04-14 12:32] LABS: Ferritin 34 ng/mL (15-150); Iron 45 ug/dL (37-145); Total Iron Binding Capacity 314 mcg/dl; Unsaturated Iron Binding 269 ug/dL (112-347)
== END 2025-05-07 23:59 | disposition home or self-care (01) ==
PROVIDERS: Nurse Practitioner; PCP Family Medicine; Visit Provider Internal Medicine Medical Oncology
DX: E61.1 Iron deficiency (principal)
CPT/HCPCS: 36415; 80053; 82728; 83540; 83550; 85025